=== PATIENT | male | born 1965 | race Caucasian/White ===

== ENCOUNTER 2016-04-20 11:37 | Inpatient (IN) | payer OTHER ==
[2016-04-20] MEDS ORDERED: ASPIRIN 81 MG CHEW PO STA (12:13)
[2016-04-20] MEDS ORDERED: NITROGLYCERIN OINT 1 INCH/GM PACKET TOPICAL STA (12:27)
--- NOTE | 2016-04-20 12:29 | ED ---
Chest Pain HPI - General Chief Complaint: Chest Pain Stated Complaint: Chest Pain Time Seen by Provider: 04/20/16 12:04 Source: patient, RN notes reviewed Mode of arrival: ambulatory Limitations: no limitations - History of Present Illness Initial Comments: Patient is a 50-year-old male presents to the emergency room for evaluation of chest pain. Patient states he has been having on and off chest pain for the past 2 months. Patient states the pain has been getting worse throughout the past few days. Patient states that he was in an argument with his when noticed the chest pain getting worse last night. Patient states he woke up this morning and chest pain has not subsided. Patient states the pain is on the left side of his chest and radiates to his shoulder. Patient denies nausea or vomiting. Patient is having 5 out of 10 constant pain. Patient states he is having slight shortness of breath. Patient states the pain is not worse with deep breaths. Patient states he has a mechanical aortic valve that was placed about 14 years ago. Patient states he's been on Coumadin for the past 14 years. Patient states his levels are checked every 1-2 weeks. Patient denies any history of MIs. Patient also has a history of diabetes type II. Patient states he takes insulin. Patient also has a history of high blood pressure. Patient denies any other significant past medical history. Patient denies fevers, chills. Patient states that he does feel lightheaded and dizzy. - Related Data Home Medications Medication Instructions Recorded Confirmed Enalapril [Vasotec] 5 mg PO DAILY 09/27/14 04/20/16 Insulin NPH Hum/Reg Insulin Hm See Protocol SQ AC-BID 09/27/14 04/20/16 [NovoLIN 70-30 100 UNIT/ML VIAL] Simvastatin [Zocor] 40 mg PO DAILY 09/27/14 04/20/16 Warfarin [Coumadin] 10 mg PO HS 09/27/14 04/20/16 Pioglitazone HCl [Pioglitazone HCl] 30 mg PO DAILY 04/20/16 04/20/16 Allergies Allergy/AdvReac Type Severity Reaction Status Date / Time No Known Allergies Allergy Verified 04/20/16 12:37 Review of Systems ROS Statement: Those systems with pertinent positive or pertinent negative responses have been documented in the HPI. ROS Other: All systems not noted in ROS Statement are negative. EKG Findings - EKG Comments: EKG Findings:: Normal sinus rhythm, ventricular rate 86 bpm, QRS duration 90 ms , QT/QTC 366/437 ms Past Medical History Past Medical History: Coronary Artery Disease (CAD), Diabetes Mellitus, Hyperlipidemia, Hypertension Additional Past Medical History / Comment(s): leaking aortic valve History of Any Multi-Drug Resistant Organisms: None Reported Additional Past Surgical History / Comment(s): aortic valve replacement Past Psychological History: No Psychological Hx Reported Smoking Status: Never smoker Past Alcohol Use History: Occasional Past Drug Use History: None Reported - Past Family History Father Family Medical History: Cancer Additional Family Medical History / Comment(s): Father had squamous cell carcinoma. He is . Mother Family Medical History: Cancer Additional Family Medical History / Comment(s): Mother of a cancer that was rare and started behind her knee. She wa 57 yrs old. General Exam - General Exam Comments Initial Comments: Sitting in exam room in no acute distress. Limitations: no limitations General appearance: alert, in no apparent distress Head exam: Present: atraumatic, normocephalic, normal inspection Eye exam: Present: normal appearance ENT exam: Present: normal exam Neck exam: Present: normal inspection Respiratory exam: Present: normal lung sounds bilaterally. Absent: respiratory distress Cardiovascular Exam: Present: regular rate, normal rhythm. Absent: normal heart sounds (mechanical aortic valve) GI/Abdominal exam: Present: soft, normal bowel sounds. Absent: distended, tenderness, guarding, rebound, rigid Extremities exam: Present: normal inspection Back exam: Present: normal inspection Neurological exam: Present: alert, oriented X3, CN II-XII intact, normal gait Psychiatric exam: Present: normal affect, normal mood Skin exam: Present: warm, dry, intact, normal color. Absent: rash Course Vital Signs 04/20/16 04/20/16 04/20/16 11:42 13:14 14:49 Temperature 98.2 F 99.3 F 97.5 F L Pulse Rate 102 H 90 84 Respiratory 16 20 20 Rate Blood Pressure 122/63 116/66 112/67 O2 Sat by Pulse 97 100 97 Oximetry 04/20/16 15:50 Temperature 98.0 F Pulse Rate 88 Respiratory 18 Rate Blood Pressure 112/66 O2 Sat by Pulse 96 Oximetry Chest Pain [facility] Patient is a 50-year-old male presents emergency room for evaluation of chest pain. Cardiac enzymes within normal limits. INR 8.2. Patient states his INR has ever been this high. Will hold Coumadin and have patient admitted for further evaluation of coagulopathy and unstable angina. Case discussed with Dr. Galindo. Dr. Galindo discussed case with Dr. Nelson who agreed to admit patient. Plan discussed with patient and his family. Disposition Clinical Impression: Unstable angina, Coagulopathy Disposition: ADMITTED IP TO THIS [facility] Condition: Stable Decision Date: 04/20/16
[2016-04-20 12:49] LABS: Basophils % (A) 0 %; CH 29.5; CHCM 33.5; Eosinophils # (A) 0.1 k/uL (0-0.7); Eosinophils % (A) 1 %; HCT 48.6 % (39.0-53.0); HDW 2.45; HGB 16.1 gm/dL (13.0-17.5); Luc # (Auto) 0.07; Luc % (Auto) 1; Lymphocytes # (A) 0.2 k/uL (1.0-4.8); Lymphocytes % (A) 3 %; MCH 29.3 pg (25.0-35.0); MCHC 33.2 g/dL (31.0-37.0); MCV 88.3 fL (80.0-100.0); Mean Platelet Volume 8.6; Monocytes # (A) 0.3 k/uL (0-1.0); Monocytes % (A) 4 %; Neutrophils # (A) 6.5 k/uL (1.3-7.7); Neutrophils % (A) 90 %; RBC 5.51 m/uL (4.30-5.90); RDW 13.1 % (11.5-15.5); WBC 7.2 k/uL (3.8-10.6); WBC (Perox) 7.06
[2016-04-20 12:54] LABS: Glucose,Whole Blood 254 mg/dL (75-99)
--- NOTE | 2016-04-20 13:02 | XR ---
EXAMINATION TYPE: XR chest 2V DATE OF EXAM: 04/20/2016 12:48 PM COMPARISON: 11/26/2011 TECHNIQUE: PA and lateral views submitted. HISTORY: Chest pain FINDINGS: The lungs are clear and there is no pneumothorax, pleural effusion, or focal pneumonia. Postsurgica l change is noted including valve replacement surgery. Surgical clips overlie the axilla on the right . Slight curvature of the spine noted with very minimal hypertrophic changes. IMPRESSION: 1. No acute process.
[2016-04-20 13:05] LABS: ALT 36 U/L (21-72); AST 26 U/L (17-59); Alkaline Phosphatase 73 U/L (38-126); Anion Gap 12 mmol/L; Blood Urea Nitrogen 19 mg/dL (9-20); Calcium 8.9 mg/dL (8.4-10.2); Carbon Dioxide 25 mmol/L (22-30); Chloride 102 mmol/L (98-107); Glucose 269 mg/dL (74-99); Magnesium 1.7 mg/dL (1.6-2.3); Non-African American GFR(MDRD) >60 (>60 ml/min/1.73 sqM); Potassium 4.4 mmol/L (3.5-5.1); Sodium 139 mmol/L (137-145); Total Bilirubin 1.2 mg/dL (0.2-1.3); Total Protein 6.8 g/dL (6.3-8.2)
[2016-04-20 13:15] LABS: Creatine Kinase 166 U/L (55-170)
[2016-04-20 13:18] LABS: Partial Thromboplastin Time 49.4 sec (22.0-30.0); Prothrombin Time 85.5 sec (9.0-12.0)
[2016-04-20 13:20] LABS: INR 8.2 (<1.1)
[2016-04-20 13:27] LABS: Creatine Kinase MB 0.8 ng/mL (0.0-2.4); Troponin I <0.012 ng/mL (0.000-0.034)
[2016-04-20] MEDS ORDERED: NALOXONE 0.4 MG/ML 1 ML VIAL IV PRN (14:10)
[2016-04-20] MEDS ORDERED: ONDANSETRON 4 MG/2 ML VIAL IVP PRN (14:10)
[2016-04-20] MEDS ORDERED: MORPHINE SULFATE 4 MG/ML SYRINGE IV PRN (14:10)
[2016-04-20] MEDS ORDERED: HYDROcodone/APAP 5-325MG 1 EACH TAB PO PRN (14:10)
[2016-04-20] MEDS ORDERED: ACETAMINOPHEN TAB 325 MG TAB PO PRN (14:10)
[2016-04-20] MEDS: SODIUM CHLORIDE 0.9% 1,000 ML IV SCH (14:50)
[2016-04-20] MEDS ORDERED: NITROGLYCERIN SL TABS 0.4 MG TAB SUBLINGUAL PRN (16:25)
[2016-04-20 18:54] LABS: Hemoglobin A1C 8.5 % (4.2-6.1)
[2016-04-20] MEDS: PANTOPRAZOLE 40 MG TABLET PO SCH (18:57)
[2016-04-20] MEDS: INSULIN LISPRO (humaLOG) 300 UNIT/3 ML VIAL SQ SCH ×2 (18:58→21:52)
[2016-04-20 19:07] LABS: Glucose,Whole Blood 214 mg/dL (75-99)
[2016-04-20 19:20] LABS: Creatine Kinase 126 U/L (55-170)
[2016-04-20 19:33] LABS: Creatine Kinase MB 0.5 ng/mL (0.0-2.4); Troponin I <0.012 ng/mL (0.000-0.034)
[2016-04-20 21:21] LABS: Glucose,Whole Blood 198 mg/dL (75-99)
--- NOTE | 2016-04-20 21:53 | HP ---
CHIEF COMPLAINT: Chest pain. HISTORY OF PRESENT ILLNESS: A 50-year-old gentleman with a past medical history of hypertension, hyperlipidemia, history of aortic regurgitation with a bicuspid aortic valve and aortic valve replacement being followed by Dr. Wu in the outpatient setting, complaining of chest pain. The patient was noted to have chest pain on the mid part of the chest and left side of the chest which was sharp in character. The pain was on and off for last in 2 months. According to him, the pain worsened today. The patient is on Coumadin for the last 14 years and the patient came to [place], was admitted for further evaluation. The patient also reports significant social stressors associated with an impending divorce. There is no history of any fever, rigors, chills. No history of headache. No history of hemoptysis, hematemesis, melena at this time. Coumadin coagulopathy was noted at the time of admission. The troponins are negative. PAST MEDICAL HISTORY: History of diabetes type 2, history of hypertension, hyperlipidemia, history of bicuspid aortic regurgitation, aortic valve replacement. Medications prior to admission include: 1. Coumadin 10 mg q.h.s. 2. Zocor 40 mg daily. 3. Actos 30 mg daily. 4. Insulin NPH 70/30. 5. Vasotec 5 mg daily. ALLERGIES: None. FAMILY HISTORY: History of cancer in the family, squamous cell carcinoma. SOCIAL HISTORY: The patient is on business. No history of smoking. Occasional alcohol intake. REVIEW OF SYSTEMS: ENT: No diminished hearing. No diminished vision. CARDIOVASCULAR: As mentioned earlier. RESPIRATORY: As mentioned earlier. GI: No nausea. : No dysuria. NERVOUS: No numbness or weakness. ALLERGY/IMMUNOLOGY: No asthma or hay fever. MUSCULOSKELETAL: As mentioned earlier. HEMATOLOGY/ONCOLOGY: No history of anemia. ENDOCRINE: Diabetes mellitus. CONSTITUTIONAL: As mentioned earlier. PSYCHIATRY: Negative. DERMATOLOGY: Negative. RHEUMATOLOGY: Negative. PHYSICAL EXAM: Patient is alert and oriented x3. Pulse is 84, blood pressure 112/66, respirations 20, temperature 97.4. Pulse ox 97% on 2L. HEENT: Conjunctivae normal. Oral mucosa moist. NECK: No jugular venous distension or carotid bruits. No lymph node enlargement. CARDIOVASCULAR: S1 normal. S2 is prosthetic murmur. RESPIRATORY: Breath sounds diminished in the bases. No rhonchi. No crackles. ABDOMEN: Soft, nontender. No mass palpable. LEGS: No edema. No swelling. NERVOUS SYSTEM: Higher functions as mentioned. Moves all 4 limbs. No focal motor or sensory deficits. LYMPHATIC: No lymph nodes palpable in neck or axillae. SKIN: No ulcer, rash or bleeding. LABS: CBC within normal limits. Otherwise, PT is 85.5 and INR is 8.2. Glucose 269, 254. ASSESSMENT: 1. Chest pain, possible angina. 2. Coumadin coagulopathy. 3. Prosthetic aortic valve and aortic valve replacement for aortic regurgitation as well as bicuspid aortic valve. 4. Diabetes mellitus type 2. 5. Hypertension. 6. Hyperlipidemia. 7. Coumadin monitoring. 8. Social stressors. 9. FULL CODE. RECOMMENDATIONS AND DICUSSION: In this 50-year-old gentleman who presented with multiple complex medical issues, we will monitor the patient closely. Continue the current medications and symptomatic treatment. To rule out myocardial infarction, continue angina protocol. Hold the Coumadin. Patient has mild Coumadin coagulopathy. Watch for any evidence of bleeding otherwise. Guarded prognosis because of multiple complex medical issues. Further recommendations to follow. A copy of dictation forwarded to Dr. Wu, who is the primary physician.
[2016-04-20] MEDS: ZOLPIDEM 5 MG TAB PO PRN (22:32)
[2016-04-21 01:19] LABS: Creatine Kinase 99 U/L (55-170)
[2016-04-21 01:32] LABS: Creatine Kinase MB 0.3 ng/mL (0.0-2.4); Troponin I <0.012 ng/mL (0.000-0.034)
[2016-04-21 06:30] LABS: Prothrombin Time 112.4 sec (9.0-12.0)
[2016-04-21 06:38] LABS: INR >10.0 (<1.1)
[2016-04-21 06:42] LABS: Anion Gap 7 mmol/L; Blood Urea Nitrogen 18 mg/dL (9-20); Calcium 8.6 mg/dL (8.4-10.2); Carbon Dioxide 27 mmol/L (22-30); Chloride 105 mmol/L (98-107); Cholesterol 120 mg/dL (<200); Glucose 224 mg/dL (74-99); HDL Cholesterol 49 mg/dL (40-60); Non-African American GFR(MDRD) >60 (>60 ml/min/1.73 sqM); Potassium 4.6 mmol/L (3.5-5.1); Sodium 139 mmol/L (137-145); Triglycerides 95 mg/dL (<150)
[2016-04-21 06:44] LABS: Glucose,Whole Blood 221 mg/dL (75-99)
[2016-04-21] MEDS: SODIUM CHLORIDE 0.9% 1,000 ML IV SCH ×2 (06:48→17:02)
[2016-04-21] MEDS: INSULIN LISPRO (humaLOG) 300 UNIT/3 ML VIAL SQ SCH ×4 (06:49→21:40)
[2016-04-21] MEDS: PANTOPRAZOLE 40 MG TABLET PO SCH (06:49)
[2016-04-21] MEDS ORDERED: PHYTONADIONE ORAL 5 MG/5 ML ORAL.SYRG PO STA (06:52)
[2016-04-21] MEDS: PIOGLITAZONE 30 MG TAB PO SCH (07:54)
[2016-04-21] MEDS: ATORVASTATIN 20 MG TAB PO SCH (07:54)
[2016-04-21] MEDS: LISINOPRIL 10 MG TAB PO SCH (07:54)
[2016-04-21] MEDS: ASPIRIN 325 MG TAB PO SCH (07:55)
[2016-04-21 09:25] LABS: Basophils % (A) 0 %; CH 28.9; CHCM 32.3; Eosinophils # (A) 0.1 k/uL (0-0.7); Eosinophils % (A) 2 %; HCT 44.3 % (39.0-53.0); HDW 2.33; Luc # (Auto) 0.11; Luc % (Auto) 3; Lymphocytes # (A) 0.7 k/uL (1.0-4.8); Lymphocytes % (A) 19 %; MCH 28.4 pg (25.0-35.0); MCHC 31.6 g/dL (31.0-37.0); MCV 89.7 fL (80.0-100.0); Mean Platelet Volume 8.5; Monocytes # (A) 0.4 k/uL (0-1.0); Monocytes % (A) 11 %; Neutrophils # (A) 2.3 k/uL (1.3-7.7); Neutrophils % (A) 64 %; RBC 4.93 m/uL (4.30-5.90); RDW 13.1 % (11.5-15.5); WBC 3.6 k/uL (3.8-10.6); WBC (Perox) 3.58
[2016-04-21 12:06] LABS: Glucose,Whole Blood 130 mg/dL (75-99)
--- NOTE | 2016-04-21 12:21 | P.PN ---
Objective - Vital Signs Vital signs: Vital Signs Temp 97.2 F L 04/21/16 11:58 Pulse 77 04/21/16 11:58 Resp 16 04/21/16 11:58 BP 133/81 04/21/16 11:58 Pulse Ox 96 04/21/16 11:58 Intake & Output 04/20/16 04/21/16 04/21/16 18:59 06:59 18:59 Intake Total 900 Balance 900 Weight 89.1 kg Intake: Intake, IV Titration 900 Amount Sodium Chloride 0.9% 1, 900 000 ml @ 75 mls/hr IV . [id number] [facility] Rx#:[id number] Other: # Voids 0 1 - Labs CBC & Chem 7: 04/21/16 05:27 04/21/16 05:27 Labs: Abnormal Lab Results - Last 24 Hours (Table) 04/20/16 04/20/16 04/21/16 Range/Units 18:56 21:20 05:27 WBC (3.8-10.6) k/uL Lymphocytes # (1.0-4.8) k/uL PT (9.0-12.0) sec INR (<1.1) Glucose 224 H (74-99) mg/dL POC Glucose (mg/dL) 214 H 198 H (75-99) mg/dL 04/21/16 04/21/16 04/21/16 Range/Units 05:27 05:27 06:43 WBC 3.6 L (3.8-10.6) k/uL Lymphocytes # 0.7 L (1.0-4.8) k/uL PT 112.4 H (9.0-12.0) sec INR >10.0 H* (<1.1) Glucose (74-99) mg/dL POC Glucose (mg/dL) 221 H (75-99) mg/dL 04/21/16 Range/Units 11:43 WBC (3.8-10.6) k/uL Lymphocytes # (1.0-4.8) k/uL PT (9.0-12.0) sec INR (<1.1) Glucose (74-99) mg/dL POC Glucose (mg/dL) 130 H (75-99) mg/dL
--- NOTE | 2016-04-21 12:21 | CONS ---
DATE OF CONSULTATION: Mr. Alonso is a 50-year-old gentleman who is seen for cardiac evaluation. This patient has status post aortic valve replacement about 14 years ago. Patient has been having intermittent chest pain for the last one month. The pain is sharp in the left anterior part of the chest subsequently related to stress. Pain is not related to exertion. Patient denies any shortness of breath with routine activities. He has been followed by Dr. Wu and he is suppose to take Coumadin 10 mg daily. Past medical history includes history of diabetes type 2, hypertension, hyperlipidemia, valve replacement. Patient's home medications include Coumadin, Zocor, Actos, insulin and Vasotec. SOCIAL HISTORY: Unremarkable. Physical examination at present reveals a 50-year-old gentleman who does not appear to be in any acute distress. Patient is afebrile. Heart rate is 75 per minute. Blood pressure is 120/66 mmHg/ Head/ENT examination is negative. Neck is supple. There is no increase in jugular venous pressure. Both the carotid pulses are felt. There is no bruit. Chest is symmetrical. HEART: The PMI is not felt. First and second heart sounds are normal. Prosthetic sounds are well heard. Lungs are clinically clear to auscultation and percussion. ABDOMEN: Soft. Liver and spleen are not enlarged. EXTREMITIES: Peripheral very pulsations are 2+. EKG shows normal sinus rhythm without any acute ischemic changes. The patient's INR was more than the 10 today. Electrolytes are normal. FINAL IMPRESSION: 1. This patient's chest pains are atypical pain. 2. Patient is status post aortic valve replacement. 3. Coagulopathy secondary to Coumadin. RECOMMENDATIONS: At present, symptomatic medical therapy is recommended. Patient received vitamin K this morning. After the patient's INR is stabilized, patient can be evaluated with a stress echo as an outpatient.
[2016-04-21 13:12] LABS: INR 7.5 (<1.1)
--- NOTE | 2016-04-21 13:41 | P.PN ---
Subjective date of service 04/21/2016 Progress note being dictated for Dr. Nelson. Interval history: This is a 50-year-old gentleman admitted with chest pain with history of aortic valve replacementand multiple other medical issues. Currently denies chest pain but states has left lateral chest pain nonradiating brought on by stress.denies shortness of breath. INR elevated,greater than 10 and received vitamin K this morning.no signs or symptoms of bleeding. evaluated by cardiology with recommendations noted. Echo pending.telemetry sinus rhythm. Objective - Vital Signs Vital signs: Vital Signs Temp 97.2 F L 04/21/16 11:58 Pulse 77 04/21/16 11:58 Resp 16 04/21/16 11:58 BP 133/81 04/21/16 11:58 Pulse Ox 96 04/21/16 11:58 Intake & Output 04/20/16 04/21/16 04/21/16 18:59 06:59 18:59 Intake Total 900 Balance 900 Weight 89.1 kg Intake: Intake, IV Titration 900 Amount Sodium Chloride 0.9% 1, 900 000 ml @ 75 mls/hr IV . [id number] COUNTS INCLUDE 234 BEDS AT [facility] Rx#:[id number] Other: # Voids 0 1 - Exam PHYSICAL EXAM: VITAL SIGNS: [as above] GENERAL: [sitting up in bed, no acute distress] HEENT: [Pupils equal conjunctiva normal.] NECK: [Supple, no JVD] RESPIRATORY EFFORT:[normal] LUNGS: [lungs clear, no crackles wheezes or rhonchi] CARDIOVASCULAR[regular S1 and S2, no edema] GI: [Abdomen soft, nontender, positive bowel sounds.no guarding] PSYCH: [Alert and oriented -3, mood and affect normal.] NEURO: no focal deficits, moves all 4 extremities, strength and sensation grossly intact - Labs CBC & Chem 7: 04/21/16 05:27 04/21/16 05:27 Labs: Abnormal Lab Results - Last 24 Hours (Table) 04/20/16 04/20/16 04/21/16 Range/Units 18:56 21:20 05:27 WBC (3.8-10.6) k/uL Lymphocytes # (1.0-4.8) k/uL PT (9.0-12.0) sec INR (<1.1) Glucose 224 H (74-99) mg/dL POC Glucose (mg/dL) 214 H 198 H (75-99) mg/dL 04/21/16 04/21/16 04/21/16 Range/Units 05:27 05:27 06:43 WBC 3.6 L (3.8-10.6) k/uL Lymphocytes # 0.7 L (1.0-4.8) k/uL PT 112.4 H (9.0-12.0) sec INR >10.0 H* (<1.1) Glucose (74-99) mg/dL POC Glucose (mg/dL) 221 H (75-99) mg/dL 04/21/16 04/21/16 Range/Units 11:43 12:19 WBC (3.8-10.6) k/uL Lymphocytes # (1.0-4.8) k/uL PT 77.0 H (9.0-12.0) sec INR 7.5 H* (<1.1) Glucose (74-99) mg/dL POC Glucose (mg/dL) 130 H (75-99) mg/dL Assessment and Plan Plan: 1. [chest pain, possible angina]. 2. [Coumadin coagulopathy]. 3. [prostatic aortic valve replacement secondary to aortic regurgitation 4. [diabetes mellitus type 2]. 5. [hypertension]. 6. [hyperlipidemia 7. [Coumadin monitoring, currently on hold]. 8. Social stressors plan: Continue on current medication regime ,monitoring and symptomatic treatment. As mentioned above received vitamin K with close monitoring of INR.continue close monitoring for signs or symptoms of bleeding. repeat labs ordered for a.m. Stress echo being discussed per cardiology once hypercoagulopathy controlled/stablized. Follow closely with cardiology.prognosis guarded given multiple complex medical issues. Further recommendations to follow. The impression and plan of care has been dictated as directed. : I performed a H&P examination of this patient and discussed the same with the dictator. I agree with the dictator's note. Any additional findings/opinions/ etc. will be noted.
[2016-04-21 16:44] LABS: Glucose,Whole Blood 229 mg/dL (75-99)
--- NOTE | 2016-04-21 19:17 | PN ---
DATE OF SERVICE: 04/21/2016 This 50 -year-old gentleman admitted with chest pain. Also had significant Coumadin coagulopathy. Vitamin K was given. INR is more than 10 at this time. Seen and evaluated the patient along with nurse practitioner. Please refer to the nurse practitioner notes and impression documented as a scribe for further information.
[2016-04-21] MEDS: ZOLPIDEM 5 MG TAB PO PRN (21:42)
[2016-04-21 21:44] LABS: Glucose,Whole Blood 127 mg/dL (75-99)
[2016-04-22] MEDS: SODIUM CHLORIDE 0.9% 1,000 ML IV SCH (06:00)
[2016-04-22 07:29] LABS: Glucose,Whole Blood 182 mg/dL (75-99)
[2016-04-22 07:39] VITALS: BP 130/70; PULSE 69; RESP 18; TEMP 97.7
[2016-04-22] MEDS: INSULIN LISPRO (humaLOG) 300 UNIT/3 ML VIAL SQ SCH ×2 (07:41→13:11)
[2016-04-22] MEDS: PANTOPRAZOLE 40 MG TABLET PO SCH (07:42)
[2016-04-22] MEDS: ASPIRIN 325 MG TAB PO SCH (07:42)
[2016-04-22] MEDS: ATORVASTATIN 20 MG TAB PO SCH (07:43)
[2016-04-22] MEDS: PIOGLITAZONE 30 MG TAB PO SCH (07:43)
[2016-04-22] MEDS: LISINOPRIL 10 MG TAB PO SCH (07:43)
[2016-04-22 08:51] LABS: Basophils % (A) 0 %; CH 29.1; CHCM 33.2; Eosinophils # (A) 0.1 k/uL (0-0.7); Eosinophils % (A) 3 %; HCT 42.7 % (39.0-53.0); HDW 2.47; HGB 13.8 gm/dL (13.0-17.5); Luc # (Auto) 0.13; Luc % (Auto) 4; Lymphocytes # (A) 0.7 k/uL (1.0-4.8); Lymphocytes % (A) 20 %; MCH 28.5 pg (25.0-35.0); MCHC 32.3 g/dL (31.0-37.0); Mean Platelet Volume 7.9; Monocytes # (A) 0.3 k/uL (0-1.0); Monocytes % (A) 8 %; Neutrophils # (A) 2.2 k/uL (1.3-7.7); Neutrophils % (A) 64 %; RBC 4.84 m/uL (4.30-5.90); WBC 3.5 k/uL (3.8-10.6); WBC (Perox) 3.73
[2016-04-22 08:56] LABS: INR 1.7 (<1.1); Prothrombin Time 16.3 sec (9.0-12.0)
--- NOTE | 2016-04-22 09:00 | ECHOF ---
Referral Reason:avr MEASUREMENTS -------- HEIGHT: 182.9 cm WEIGHT: 88.9 kg BP: 120/60 RVIDd: 2.7 cm (< 3.3) IVSd: 1.2 cm (0.6 - 1.1) LVIDd: 4.7 cm (3.9 - 5.3) LVPWd: 1.0 cm (0.6 - 1.1) IVSs: 1.4 cm LVIDs: 4.0 cm LVPWs: 1.3 cm Ao Diam: 3.3 cm (2.0 - 3.7) AV Cusp: 1.2 cm (1.5 - 2.6) LA Diam: 3.9 cm (2.7 - 3.8) MV EXCURSION: 21.866 mm (> 18.000) MV EF SLOPE: 100 mm/s (70 - 150) EPSS: 0.8 cm MV E Mayur: 0.81 m/s MV DecT: 195 ms MV A Mayur: 0.71 m/s MV E/A Ratio: 1.14 AV maxP.92 mmHg AV meanP.20 mmHg RAP: 5.00 mmHg RVSP: 16.97 mmHg FINDINGS -------- Sinus rhythm. This was a technically adequate study. There is mild concentric left ventricular hypertrophy. Overall left ventricular systolic function is normal with, an EF between 55 - 60 %. The right ventricle is normal in size. The right atrial size is normal. Peak/mean gradient across the Aortic Valve is 30.92mmHg / 17.20mmHg. Normally functioning mechanical prosthetic valve. Mild mitral annular calcification present. Mild mitral regurgitation is present. Mild tricuspid regurgitation present. There is no evidence of pulmonary hypertension. The right ventricular systolic pressure, as measured by Doppler, is 16.97mmHg. There is no pulmonic regurgitation present. The aortic root size is normal. There is no pericardial effusion. CONCLUSIONS -------- 1. There is mild concentric left ventricular hypertrophy. 2. Overall left ventricular systolic function is normal with, an EF between 55 - 60 %. 3. Peak/mean gradient across the Aortic Valve is 30.92mmHg / 17.20mmHg. 4. Normally functioning mechanical prosthetic valve. 5. Mild mitral annular calcification present. 6. Mild mitral regurgitation is present. 7. Mild tricuspid regurgitation present. 8. There is no evidence of pulmonary hypertension. 9. The right ventricular systolic pressure, as measured by Doppler, is 16.97mmHg. CAMP COOK: Maria De Jesus Mckinley RDCS
[2016-04-22 09:15] LABS: Anion Gap 6 mmol/L; Blood Urea Nitrogen 12 mg/dL (9-20); Calcium 8.3 mg/dL (8.4-10.2); Carbon Dioxide 26 mmol/L (22-30); Chloride 106 mmol/L (98-107); Glucose 208 mg/dL (74-99); Non-African American GFR(MDRD) >60 (>60 ml/min/1.73 sqM); Sodium 138 mmol/L (137-145)
[2016-04-22 12:22] LABS: Glucose,Whole Blood 194 mg/dL (75-99)
[2016-04-22] MEDS ORDERED: WARFARIN 10 MG TAB PO ONE (18:00)
--- NOTE | 2016-04-23 10:54 | DS ---
DATE OF ADMISSION: 04/20/2016 DATE OF DISCHARGE: 04/22/2016 FINAL DIAGNOSES: 1. Chest pain, possibly musculoskeletal, improved. 2. Coumadin coagulopathy, improved. 3. Prosthetic mechanical aortic valve done for bicuspid aortic value and as well as aortic regurgitation. 4. Diabetes mellitus type 2. 5. Hypertension. 6. Hyperlipidemia. 7. Coumadin monitoring. 8. Social stressors. DISCHARGE DISPOSITION: The patient will be discharged in a stable condition with guarded prognosis. HISTORY OF PRESENT ILLNESS: This 50-year-old gentleman with a past medical history of multiple medical problems admitted with chest pain. The patient also had Coumadin coagulopathy. Cardiology saw the patient and recommend outpatient follow-up. On examination, vitals are stable. CARDIOVASCULAR SYSTEM: S1 normal. S2 is prosthetic. NERVOUS SYSTEM: No focal deficits. Discharge diet is cardiac, 1800 calorie ADA diet. Will follow up with Dr. Wu with CBC, BMP, PT, INR and follow with cardiology as recommended. MEDICATIONS: 1. Tylenol 650 q.6 p.r.n. 2. Insulin NPH as before b.i.d. 3. Zestril 10 mg p.o. daily. 4. Actos 30 mg p.o. daily. 5. Zocor 40 mg daily. 6. Coumadin 8 mg p.o. daily for now. Dose to be adjusted in the outpatient setting. Once again, the patient will be discharged in stable condition with guarded prognosis.
== END 2016-04-22 14:23 | disposition home or self-care (01) | DRG 313 ==
LOC: EC 11:37 → 6SEL 14:03 → 4MS4W 04-21 16:52
PROVIDERS: ADMIT Hospitalist; ATTEND Hospitalist
DX: R07.89 Other chest pain (principal); I25.110 Atherosclerotic heart disease of native coronary artery with unstable angina pectoris; I10 Essential (primary) hypertension; E11.9 Type 2 diabetes mellitus without complications; Z95.2 Presence of prosthetic heart valve; E78.5 Hyperlipidemia, unspecified; R79.1 Abnormal coagulation profile; T45.515A Adverse effect of anticoagulants, initial encounter; Z79.4 Long term (current) use of insulin; Z79.01 Long term (current) use of anticoagulants; Z79.899 Other long term (current) drug therapy
CPT/HCPCS: 36415; 71020; 80048; 80053; 80061; 82550; 82553; 83036; 83735; 84484; 85025; 85379; 85610; 85730; 87502; 93005; 93306; 94760; 96360; 96361; 99285

== ENCOUNTER → 2016-08-02 | Outpatient (CLI) | payer OTHER ==
--- NOTE | 2016-08-04 07:55 | XR ---
Sternum HISTORY: Trauma and pain 2 views of the sternum Comparison to chest x-ray 08/02/2016 Bone mineralization is maintained. Patient is post median sternotomy, sternal wires are intact. Cardi ac valve replacement has been performed. Surgical clips present in the right axilla. IMPRESSION: No depressed sternal fracture is evident. Follow-up as indicated.
--- NOTE | 2016-08-04 07:57 | XR ---
Bilateral RIBS with PA chest x-ray HISTORY: Trauma and pain 4 views of each ribs are submitted, frontal view of the chest. No displaced rib fracture is evident. There is no pneumothorax or pleural effusion. Postop changes ar e noted status post median sternotomy. Surgical clips are present over the right shoulder. Cardiomedi astinal silhouette, pulmonary vascularity and lorrie are within normal limits. IMPRESSION: No displaced fracture, bone scan could be performed for increased sensitivity as indicate d if occult fracture is suspected.
== END | disposition home or self-care (01) ==
LOC: RADXRYALE 16:49
PROVIDERS: ATTEND Family Medicine
DX: S29.9XXA Unspecified injury of thorax, initial encounter (principal)
CPT/HCPCS: 71111; 71120

== ENCOUNTER → 2017-09-12 | Outpatient (CLI) | payer OTHER ==
[2017-09-12 07:06] LABS: Blood Urea Nitrogen 13 mg/dL (9-20)
--- NOTE | 2017-09-12 09:33 | CT ---
EXAMINATION TYPE: CT angio chest DATE OF EXAM: 09/12/2017 COMPARISON: 11/30/2011 HISTORY: 52-year-old male follow-up Ascending aortic aneurysm TECHNIQUE: Contiguous axial scanning of the chest performed without and with IV Contrast, patient inj ected with 100 ml mL of Isovue 370. Coronal/sagittal MIP reconstructions performed. Reconstructions g enerated on a dedicated independent workstation. CT DLP: 618.70 mGycm Automated exposure control for dose reduction was used. FINDINGS: Median sternotomy wires are present with prosthetic aortic valve. There is also prior surgical repair of the ascending aorta, possible interposition graft extending to the proximal arch. The aortic root measures 3.2 cm, stable. Ascending aorta measures 3.4 cm, stable. There is conventional arterial vessel branching anatomy. Upper descending thoracic aorta is mildly aneurysmal at 3.3 cm, stable to minimally increased from 3. 2 cm, previously. The remainder of the thoracic aorta is normal caliber. Heart normal size without pericardial effusion. Mild bilateral gynecomastia. No thoracic lymphadenopathy by CT size criteria. Mild dependent atelectasis in the lungs no consolidation or pleural effusion. Small hiatal hernia. Visualized upper abdomen shows no gross abnormality. Bones: No osseous destructive process. IMPRESSION: 1. STABLE POST SURGICAL CHANGES OF PRIOR ASCENDING AORTIC REPAIR. NO EVIDENT COMPLICATION. 2. THE UPPER DESCENDING THORACIC AORTA IS MILDLY ANEURYSMAL AT 3.3 CM, RELATIVELY STABLE FROM 2012 WH ERE IT MEASURED 3.2 CM. 3. SMALL HIATAL HERNIA.
== END ==
LOC: RADCTMAIN 06:34
PROVIDERS: ATTEND Internal Medicine Interventional Cardiology
DX: I71.2 Thoracic aortic aneurysm, without rupture (principal); K44.9 Diaphragmatic hernia without obstruction or gangrene
CPT/HCPCS: 82565; 84520; 71275; 36415; Q9967

== ENCOUNTER 2018-04-04 06:48 | Inpatient (IN) | payer OTHER ==
[2018-04-04] MEDS ORDERED: SODIUM CHLORIDE 0.9% 500 ML 500 ML IV ONE (07:13)
[2018-04-04] MEDS ORDERED: ONDANSETRON 4 MG/2 ML VIAL IVP STA (07:14)
[2018-04-04 07:18] LABS: Glucose,Whole Blood 107 mg/dL (75-99)
--- NOTE | 2018-04-04 07:18 | ED ---
General Adult HPI - General Chief complaint: Altered Mental Status Stated complaint: hypoglycemia Time Seen by Provider: 04/04/18 06:55 Source: patient, EMS, RN notes reviewed Mode of arrival: EMS Limitations: altered mental status - History of Present Illness Initial comments: This is a 52-year-old male who presents to the emergency department because he was unresponsive and found by friends at 5:30. He was last seen last night after he ate dinner. Patient did not meet with friends as he normally does so they went and checked on him and he was found unresponsive when EMS at the scene his sugar was 44. He was given an amp of D50 and his sugar came up to 190 but he was still very slow to respond and could not figure out where he was. There is no other family member or caregiver with the patient so I'm unable to give any further history patient is unable to stand to give me any further history. Patient did vomit once when he arrived to the emergency department but he is still unable to tell us anything and follow simple commands. - Related Data Home Medications Medication Instructions Recorded Confirmed Insulin NPH Hum/Reg Insulin Hm See Protocol SQ AC-BID 09/27/14 04/04/18 [NovoLIN 70-30 100 UNIT/ML VIAL] Simvastatin [Zocor] 40 mg PO DAILY 09/27/14 04/04/18 Cholecalciferol [Vitamin D3] 3,000 unit PO DAILY 04/04/18 04/04/18 Cinnamon Bark [Cinnamon] 1,000 mg PO DAILY 04/04/18 04/04/18 Empagliflozin [Jardiance] 25 mg PO DAILY 04/04/18 04/04/18 Enalapril Maleate [Vasotec] 5 mg PO DAILY 04/04/18 04/04/18 Sildenafil [Revatio] 60 mg PO DAILY PRN 04/04/18 04/04/18 Warfarin [Coumadin] 10 mg PO DAILY 04/04/18 04/04/18 metFORMIN HCL [Glucophage] 100 mg PO BID 04/04/18 04/04/18 sitaGLIPtin [Januvia] 100 mg PO DAILY 04/04/18 04/04/18 Allergies Allergy/AdvReac Type Severity Reaction Status Date / Time No Known Allergies Allergy Verified 04/04/18 08:13 Review of Systems ROS Statement: Those systems with pertinent positive or pertinent negative responses have been documented in the HPI. ROS Other: All systems not noted in ROS Statement are negative. Past Medical History Past Medical History: Coronary Artery Disease (CAD), Diabetes Mellitus, Hyperlipidemia, Hypertension Additional Past Medical History / Comment(s): leaking aortic valve History of Any Multi-Drug Resistant Organisms: None Reported Additional Past Surgical History / Comment(s): aortic valve replacement Past Anesthesia/Blood Transfusion Reactions: No Reported Reaction Past Psychological History: No Psychological Hx Reported Smoking Status: Never smoker Past Alcohol Use History: Occasional Past Drug Use History: None Reported - Past Family History Father Family Medical History: Cancer Additional Family Medical History / Comment(s): Father had squamous cell carcinoma. He is . Mother Family Medical History: Cancer Additional Family Medical History / Comment(s): Mother of a cancer that was rare and started behind her knee. She wa 57 yrs old. General Exam - General Exam Comments Initial Comments: GENERAL: Patient is well-developed and well-nourished. Patient is nontoxic and well- hydrated and is in mild distress. ENT: Neck is soft and supple. No significant lymphadenopathy is noted. Oropharynx is clear. Moist mucous membranes. Neck has full range of motion without eliciting any pain. EYES: The sclera were anicteric and conjunctiva were pink and moist. Extraocular movements were intact and pupils were equal round and reactive to light. Eyelids were unremarkable. PULMONARY: Unlabored respirations. Good breath sounds bilaterally. No audible rales rhonchi or wheezing was noted. CARDIOVASCULAR: Patient has a scar in the middle of his chest I could hear a click of valve I have no other history on this at this time ABDOMEN: Soft and nontender with normal bowel sounds. SKIN: Skin is clear with no lesions or rashes and otherwise unremarkable. NEUROLOGIC: Patient is arousable and is able to open his eyes on command but does not answer any questions it does appear that he is able to move all 4 extremities. I noticed no gross neurologic deficits such as any facial droop. MUSCULOSKELETAL: Normal extremities with adequate strength and full range of motion. No lower extremity swelling or edema. LYMPHATICS: No significant lymphadenopathy is noted PSYCHIATRIC: To evaluate Limitations: altered mental status Course Vital Signs 04/04/18 04/04/18 04/04/18 06:55 07:32 09:27 Temperature 97.6 F 98.2 F Pulse Rate 67 66 71 Respiratory 16 16 16 Rate Blood Pressure 186/96 162/85 163/83 O2 Sat by Pulse 99 98 100 Oximetry Medical Decision Making - Medical Decision Making EKG shows sinus rhythm with occasional PVC at 60 bpm W[place] interval 286 QRS is under QT intervals 412 QTC is 438. Patient's EKG shows no acute ST segment elevation or depression. When I compared this EKG to an old EKG I don't notice any significant changes. Family arrived later and told me that he had a aortic valve replacement 15 years ago. Patient also is a diabetic. They state that he has no history of high blood pressure high cholesterol. Family states his sugars been running high for quite a while and is causing quite a bit has some lately. The family states his been under a lot of stress and is going through a divorce and is in the final states that. Family also states for the last week complaining of a lot of heartburn and drinking a lot of Mylanta. After about 4 hours of being in the emergency department the patient became much more alert and oriented but not quite to his baseline but he was able to recognize family and talked to them. Patient is now being fed. Patient is getting Tylenol for a headache. - Lab Data Result diagrams: 04/04/18 07:20 04/04/18 07:20 Lab Results 04/04/18 04/04/18 04/04/18 Range/Units 07:05 07:20 07:20 WBC 6.0 (3.8-10.6) k/uL RBC 5.31 (4.30-5.90) m/uL Hgb 15.2 (13.0-17.5) gm/dL Hct 45.8 (39.0-53.0) % MCV 86.2 (80.0-100.0) fL MCH 28.6 (25.0-35.0) pg MCHC 33.1 (31.0-37.0) g/dL RDW 13.4 (11.5-15.5) % Plt Count 227 (150-450) k/uL Neutrophils % 88 % Lymphocytes % 6 % Monocytes % 4 % Eosinophils % 1 % Basophils % 0 % Neutrophils # 5.3 (1.3-7.7) k/uL Lymphocytes # 0.4 L (1.0-4.8) k/uL Monocytes # 0.2 (0-1.0) k/uL Eosinophils # 0.0 (0-0.7) k/uL Basophils # 0.0 (0-0.2) k/uL PT (9.0-12.0) sec INR (<1.2) APTT (22.0-30.0) sec Sodium 141 (137-145) mmol/L Potassium 3.8 (3.5-5.1) mmol/L Chloride 105 (98-107) mmol/L Carbon Dioxide 30 (22-30) mmol/L Anion Gap 6 mmol/L BUN 17 (9-20) mg/dL Creatinine 0.81 (0.66-1.25) mg/dL Est GFR (CKD-EPI)AfAm >90 (>60 ml/min/1.73 sqM) Est GFR (CKD-EPI)NonAf >90 (>60 ml/min/1.73 sqM) Glucose 114 H (74-99) mg/dL POC Glucose (mg/dL) 107 H (75-99) mg/dL POC Glu [employer] ID Radha Dwons Calcium 8.7 (8.4-10.2) mg/dL Total Bilirubin 0.5 (0.2-1.3) mg/dL AST 24 (17-59) U/L ALT 37 (21-72) U/L Alkaline Phosphatase 66 (38-126) U/L Troponin I (0.000-0.034) ng/mL Total Protein 6.8 (6.3-8.2) g/dL Albumin 4.2 (3.5-5.0) g/dL 04/04/18 04/04/18 04/04/18 Range/Units 07:20 07:20 08:07 WBC (3.8-10.6) k/uL RBC (4.30-5.90) m/uL Hgb (13.0-17.5) gm/dL Hct (39.0-53.0) % MCV (80.0-100.0) fL MCH (25.0-35.0) pg MCHC (31.0-37.0) g/dL RDW (11.5-15.5) % Plt Count (150-450) k/uL Neutrophils % % Lymphocytes % % Monocytes % % Eosinophils % % Basophils % % Neutrophils # (1.3-7.7) k/uL Lymphocytes # (1.0-4.8) k/uL Monocytes # (0-1.0) k/uL Eosinophils # (0-0.7) k/uL Basophils # (0-0.2) k/uL PT 29.9 H (9.0-12.0) sec INR 3.1 H (<1.2) APTT 39.9 H (22.0-30.0) sec Sodium (137-145) mmol/L Potassium (3.5-5.1) mmol/L Chloride (98-107) mmol/L Carbon Dioxide (22-30) mmol/L Anion Gap mmol/L BUN (9-20) mg/dL Creatinine (0.66-1.25) mg/dL Est GFR (CKD-EPI)AfAm (>60 ml/min/1.73 sqM) Est GFR (CKD-EPI)NonAf (>60 ml/min/1.73 sqM) Glucose (74-99) mg/dL POC Glucose (mg/dL) 109 H (75-99) mg/dL POC Glu [employer] ID Mukul Hagen Calcium (8.4-10.2) mg/dL Total Bilirubin (0.2-1.3) mg/dL AST (17-59) U/L ALT (21-72) U/L Alkaline Phosphatase (38-126) U/L Troponin I <0.012 (0.000-0.034) ng/mL Total Protein (6.3-8.2) g/dL Albumin (3.5-5.0) g/dL 04/04/18 Range/Units 09:28 WBC (3.8-10.6) k/uL RBC (4.30-5.90) m/uL Hgb (13.0-17.5) gm/dL Hct (39.0-53.0) % MCV (80.0-100.0) fL MCH (25.0-35.0) pg MCHC (31.0-37.0) g/dL RDW (11.5-15.5) % Plt Count (150-450) k/uL Neutrophils % % Lymphocytes % % Monocytes % % Eosinophils % % Basophils % % Neutrophils # (1.3-7.7) k/uL Lymphocytes # (1.0-4.8) k/uL Monocytes # (0-1.0) k/uL Eosinophils # (0-0.7) k/uL Basophils # (0-0.2) k/uL PT (9.0-12.0) sec INR (<1.2) APTT (22.0-30.0) sec Sodium (137-145) mmol/L Potassium (3.5-5.1) mmol/L Chloride (98-107) mmol/L Carbon Dioxide (22-30) mmol/L Anion Gap mmol/L BUN (9-20) mg/dL Creatinine (0.66-1.25) mg/dL Est GFR (CKD-EPI)AfAm (>60 ml/min/1.73 sqM) Est GFR (CKD-EPI)NonAf (>60 ml/min/1.73 sqM) Glucose (74-99) mg/dL POC Glucose (mg/dL) 86 (75-99) mg/dL POC Glu [employer] ID CrystalitIdalia currie Calcium (8.4-10.2) mg/dL Total Bilirubin (0.2-1.3) mg/dL AST (17-59) U/L ALT (21-72) U/L Alkaline Phosphatase (38-126) U/L Troponin I (0.000-0.034) ng/mL Total Protein (6.3-8.2) g/dL Albumin (3.5-5.0) g/dL Disposition Clinical Impression: Hypoglycemia, Altered mental status Disposition: ADMITTED IP TO THIS [facility] Referrals: None,Stated [REFERRING] - 1-2 days Time of Disposition: 10:54
[2018-04-04 07:34] LABS: Basophils % (A) 0 %; Eosinophils % (A) 1 %; HCT 45.8 % (39.0-53.0); HGB 15.2 gm/dL (13.0-17.5); Lymphocytes # (A) 0.4 k/uL (1.0-4.8); Lymphocytes % (A) 6 %; MCH 28.6 pg (25.0-35.0); MCHC 33.1 g/dL (31.0-37.0); MCV 86.2 fL (80.0-100.0); Mean Platelet Volume 7.3; Monocytes # (A) 0.2 k/uL (0-1.0); Monocytes % (A) 4 %; Neutrophils # (A) 5.3 k/uL (1.3-7.7); Neutrophils % (A) 88 %; Platelet Count 227 k/uL (150-450); RBC 5.31 m/uL (4.30-5.90); RDW 13.4 % (11.5-15.5)
[2018-04-04 07:47] LABS: ALT 37 U/L (21-72); AST 24 U/L (17-59); Albumin 4.2 g/dL (3.5-5.0); Alkaline Phosphatase 66 U/L (38-126); Anion Gap 6 mmol/L; Blood Urea Nitrogen 17 mg/dL (9-20); Calcium 8.7 mg/dL (8.4-10.2); Carbon Dioxide 30 mmol/L (22-30); Chloride 105 mmol/L (98-107); Glucose 114 mg/dL (74-99); Potassium 3.8 mmol/L (3.5-5.1); Sodium 141 mmol/L (137-145); Total Bilirubin 0.5 mg/dL (0.2-1.3); Total Protein 6.8 g/dL (6.3-8.2)
[2018-04-04 07:48] LABS: INR 3.1 (<1.2); Partial Thromboplastin Time 39.9 sec (22.0-30.0); Prothrombin Time 29.9 sec (9.0-12.0)
[2018-04-04 08:20] LABS: Glucose,Whole Blood 109 mg/dL (75-99)
[2018-04-04 09:30] LABS: Glucose,Whole Blood 86 mg/dL (75-99)
--- NOTE | 2018-04-04 10:01 | CT ---
EXAMINATION TYPE: CT brain wo con DATE OF EXAM: 04/04/2018 COMPARISON: INDICATION: Altered mental status, hypoglycemia DLP: 1201.4 mGycm, Automated exposure control for dose reduction was used. CONTRAST: None CT of the brain is performed utilizing 3 mm thick sections through the posterior fossa and 3 mm thick sections through the remaining calvarium. Study is performed within 24 hours of arrival to the hosp ital. No abnormal hyperdensity is present to suggest an acute intracranial hemorrhage. No mass lesion is evident. No acute infarcts are evident. Small old lacunar infarct may be in the left lagunas radiata adjacent t o the left lateral ventricle and within the anterior medial right basal ganglion or caudate head. A t iny lacunar infarct may be within the left caudate head. Some mild periventricular white matter hypod ensity is present, likely on the basis of chronic white matter ischemic changes. Ventricles and sulci are appropriate for the patient age. Mucosal thickening is through the maxillary and ethmoid air cells. Mastoid air cells are clear. Left septal deviation is present. IMPRESSIONS: 1. Old lacunar infarct discussed above. 2. Some mild periventricular white matter ischemic type changes likely present. 3. No acute intracranial process.
--- NOTE | 2018-04-04 10:34 | XR ---
EXAMINATION TYPE: XR chest 1V portable DATE OF EXAM: 04/04/2018 COMPARISON: Prior chest x-ray 04/20/2016 HISTORY: Altered mental status TECHNIQUE: Single frontal view of the chest is obtained. FINDINGS: Patient is post median sternotomy and aortic valve replacement. There is some rotation. Th ere are cardiac leads. Surgical clips present right upper chest. No pneumothorax or pleural effusion. Heart size may be accentuated by technique. No evident airspace disease, pulmonary vascularity and h vannesa are stable. IMPRESSION: No acute process.
[2018-04-04] MEDS ORDERED: ACETAMINOPHEN TAB 500 MG TAB PO STA (10:51)
[2018-04-04 10:53] LABS: Glucose,Whole Blood 71 mg/dL (75-99)
[2018-04-04] MEDS ORDERED: SODIUM CHLORIDE 0.9% 1,000 ML IV ONE (10:54)
[2018-04-04 13:06] LABS: Glucose,Whole Blood 153 mg/dL (75-99)
[2018-04-04 13:28] LABS: Appearance,Urine Clear (Clear); Bilirubin,Urine Negative (Negative); Blood,Urine Negative (Negative); Color,Urine Yellow; Glucose,Urine (UA) Negative (Negative); Ketones,Urine Negative (Negative); Leukocyte Esterase,Urine Negative (Negative); Nitrite,Urine Negative (Negative); PH, Urine 7.5 (5.0-8.0); Protein,Urine Negative (Negative); Specific Gravity,Urine 1.013 (1.001-1.035); Urobilinogen,Urine <2.0 mg/dL (<2.0)
[2018-04-04 13:37] VITALS: BMI 31.4
[2018-04-04 13:42] LABS: Amphetamine Screen,Urine Not Detected (NotDetected); Barbiturate Screen,Urine Not Detected (NotDetected); Benzodiazepines Screen,Urine Not Detected (NotDetected); Cocaine Screen,Urine Not Detected (NotDetected); Methadone Screen, Urine Not Detected (NotDetected); Opiate Screen,Urine Not Detected (NotDetected); Oxycodone Screen, Urine Not Detected (NotDetected); Phencyclidine Screen,Urine Not Detected (NotDetected); Tricyclic Antidepressant,Urine Not Detected (NotDetected); Urn Cannabinoid Scrn Not Detected (NotDetected)
[2018-04-04] MEDS ORDERED: KETOROLAC 30 MG/ML 1 ML VIAL IVP STA (14:24)
--- NOTE | 2018-04-04 14:44 | P.HPIM ---
History of Present Illness 52-year-old male came in with decreased responsiveness which is believed to be secondary to low blood sugars and his blood sugars were around 43 when he allowed to ER and patient improved now patient is alert oriented times is complaining of retro-orbital pain secondary to sinusitis mostly probably from ALLERGIES. Patient is comparing of massive congestion with clear discharge and patient denied any sputum production does have cough. Patient on multiple medications although not documented on emr, patient is on and vomiting, Januvia which she is not taking now, Jardiance, 70/30 insulin 10 units twice a day and patient did take 70/30 last night as his blood sugars are elevated. Patient did have an unintentional weight loss from depression, which has been going on for about a year. Patient denied any fever chills no other signs or symptoms of sepsis patient does have mechanical aortic valve and his target INR is 2.5- 3.5 and his INR is presently 3. Patient was comparing of epigastric abdominal discomfort burning sensation, check EKG showed normal sinus rhythm troponin is negative. Review of Systems REVIEW OF SYSTEMS: CONSTITUTIONAL: No fever, no malaise, no fatigue. HEENT: No recent visual problems or hearing problems. Denied any sore throat. CARDIOVASCULAR: No chest pain, orthopnea, PND, no palpitations, no syncope. PULMONARY: No shortness of breath, no cough, no hemoptysis. GASTROINTESTINAL: No diarrhea, no nausea, no vomiting, no abdominal pain. NEUROLOGICAL: As mentioned in HPI HEMATOLOGICAL: Denies any bleeding or petechiae. GENITOURINARY: Denies any burning micturition, frequency, or urgency. MUSCULOSKELETAL/RHEUMATOLOGICAL: Denies any joint pain, swelling, or any muscle pain. ENDOCRINE: Denies any polyuria or polydipsia. The rest of the 14-point review of systems is negative. Past Medical History Past Medical History: Coronary Artery Disease (CAD), Diabetes Mellitus, Eye Disorder, GERD/Reflux, Hyperlipidemia, Hypertension Additional Past Medical History / Comment(s): Recent cold, leaking aortic valve and had prosthetic aortic valve replacement, IDDM type II, bilateral eye injections for leaky vessels behind eye, epistaxix with coumadin use, syncope r/ t diabetes. History of Any Multi-Drug Resistant Organisms: None Reported Past Surgical History: Cardiac Valve Replacement Additional Past Surgical History / Comment(s): aortic valve replacement done at [facility]. Past Anesthesia/Blood Transfusion Reactions: No Reported Reaction Smoking Status: Never smoker - Past Family History Father Family Medical History: Cancer Additional Family Medical History / Comment(s): Father at the age of 68yrs fromsquamous cell carcinoma. Mother Family Medical History: Cancer Additional Family Medical History / Comment(s): Mother from Ewings sarcoma at the age of 57yrs. Medications and Allergies Home Medications Medication Instructions Recorded Confirmed Type Insulin NPH Hum/Reg Insulin Hm See Protocol SQ AC-BID 09/27/14 04/04/18 History [NovoLIN 70-30 100 UNIT/ML VIAL] Simvastatin [Zocor] 40 mg PO DAILY 09/27/14 04/04/18 History Cholecalciferol [Vitamin D3] 3,000 unit PO DAILY 04/04/18 04/04/18 History Cinnamon Bark [Cinnamon] 1,000 mg PO DAILY 04/04/18 04/04/18 History Empagliflozin [Jardiance] 25 mg PO DAILY 04/04/18 04/04/18 History Enalapril Maleate [Vasotec] 5 mg PO DAILY 04/04/18 04/04/18 History Sildenafil [Revatio] 60 mg PO DAILY PRN 04/04/18 04/04/18 History Warfarin [Coumadin] 10 mg PO DAILY 04/04/18 04/04/18 History metFORMIN HCL [Glucophage] 100 mg PO BID 04/04/18 04/04/18 History sitaGLIPtin [Januvia] 100 mg PO DAILY 04/04/18 04/04/18 History Allergies Allergy/AdvReac Type Severity Reaction Status Date / Time No Known Allergies Allergy Verified 04/04/18 08:13 Physical Exam Vitals: Vital Signs Temp Pulse Resp BP Pulse Ox 04/04/18 13:00 66 16 142/83 95 04/04/18 09:27 98.2 F 71 16 163/83 100 04/04/18 07:32 66 16 162/85 98 04/04/18 06:55 97.6 F 67 16 186/96 99 Intake and Output 04/03/18 04/04/18 04/04/18 22:59 06:59 14:59 Other: Weight 88.451 kg PHYSICAL EXAMINATION: GENERAL: The patient is alert and oriented x3, not in any acute distress. Well developed, well nourished. HEENT: Pupils are round and equally reacting to light. EOMI. No scleral icterus. No conjunctival pallor. Normocephalic, atraumatic. No pharyngeal erythema. No thyromegaly. CARDIOVASCULAR: S1 and S2 present. No murmurs, rubs, or gallops. PULMONARY: Chest is clear to auscultation, no wheezing or crackles. ABDOMEN: Soft, nontender, nondistended, normoactive bowel sounds. No palpable organomegaly. MUSCULOSKELETAL: No joint swelling or deformity. EXTREMITIES: No cyanosis, clubbing, or pedal edema. NEUROLOGICAL: Gross neurological examination did not reveal any focal deficits. SKIN: No rashes. Results CBC & Chem 7: 04/04/18 07:20 04/04/18 07:20 Labs: Abnormal Lab Results - Last 24 Hours (Table) 04/04/18 04/04/18 04/04/18 Range/Units 07:05 07:20 07:20 Lymphocytes # 0.4 L (1.0-4.8) k/uL PT (9.0-12.0) sec INR (<1.2) APTT (22.0-30.0) sec Glucose 114 H (74-99) mg/dL POC Glucose (mg/dL) 107 H (75-99) mg/dL 04/04/18 04/04/18 04/04/18 Range/Units 07:20 08:07 10:49 Lymphocytes # (1.0-4.8) k/uL PT 29.9 H (9.0-12.0) sec INR 3.1 H (<1.2) APTT 39.9 H (22.0-30.0) sec Glucose (74-99) mg/dL POC Glucose (mg/dL) 109 H 71 L (75-99) mg/dL 04/04/18 Range/Units 13:04 Lymphocytes # (1.0-4.8) k/uL PT (9.0-12.0) sec INR (<1.2) APTT (22.0-30.0) sec Glucose (74-99) mg/dL POC Glucose (mg/dL) 153 H (75-99) mg/dL Thrombosis Risk Factor Assmnt - Choose All That Apply Any of the Below Risk Factors Present?: Yes Each Factor Represents 1 point: Age 41-60 years, Obesity (BMI >25) Other Risk Factors: No Other congenital or acquired thrombophilia - If yes, enter type in comment: No Thrombosis Risk Factor Assessment Total Risk Factor Score: 2 Thrombosis Risk Factor Assessment Level: Low Risk Assessment and Plan Plan: -Hypoglycemia leading to mildly decreased responsiveness patient's insulin will be discontinued will monitor his blood sugars today without any hypoglycemic agents and will decide on his home regimen depending on his blood sugars during this hospitalization. -Retro-orbital headache: CAT scan of the head did not show any significant acute abnormality, headache is probably secondary to sinusitis which is mostly allogenic, patient was started on Claritin. -Gastritis: Patient will be started on Protonix patient may need 14 days of Prilosec. -Type 2 diabetes mellitus: Will obtain hemoglobin A1c patient appears to have had uncontrolled blood sugars in the past since he last significant amount of weight patient blood sugars are better controlled now. -Hyperlipidemia -Hypertension -History of fatty regurgitation with mechanical aortic valve patient's INR is therapy continue with same dose of Coumadin now
[2018-04-04 18:04] LABS: Glucose,Whole Blood 188 mg/dL (75-99)
[2018-04-04] MEDS: LORATADINE 10 MG TAB PO SCH (18:41)
[2018-04-04] MEDS: PANTOPRAZOLE 40 MG/10 ML VIAL IVP SCH (18:41)
[2018-04-04] MEDS: SILDENAFIL 20 MG TAB PO SCH ×2 (18:42→21:03)
[2018-04-04 18:53] VITALS: RESP 18
[2018-04-04] MEDS ORDERED: ACETAMINOPHEN TAB 325 MG TAB PO PRN (20:03)
[2018-04-04] MEDS: DOXYCYCLINE 100 MG CAP PO SCH (21:03)
[2018-04-04 21:11] LABS: Glucose,Whole Blood 279 mg/dL (75-99)
[2018-04-04] MEDS: INSULIN ASPART (NovoLOG) 100 UNIT/ML VIAL SQ SCH (22:35)
[2018-04-05 02:02] LABS: Glucose,Whole Blood 131 mg/dL (75-99)
[2018-04-05] MEDS: INSULIN ASPART (NovoLOG) 100 UNIT/ML VIAL SQ SCH ×2 (05:08→07:41)
[2018-04-05 05:39] LABS: Glucose,Whole Blood 86 mg/dL (75-99)
[2018-04-05 07:21] LABS: Glucose,Whole Blood 88 mg/dL (75-99)
[2018-04-05 07:25] VITALS: BP 164/78; PULSE 73; TEMP 97.9
[2018-04-05] MEDS ORDERED: INSULN ASP PRT/INSULIN ASPART 100 UNIT/ML 10 ML VIAL SQ SCH (07:30)
[2018-04-05 07:53] LABS: Hemoglobin A1C 8.5 % (4.0-6.0)
[2018-04-05] MEDS: SILDENAFIL 20 MG TAB PO SCH (08:03)
[2018-04-05] MEDS: DOXYCYCLINE 100 MG CAP PO SCH (08:03)
[2018-04-05] MEDS: PANTOPRAZOLE 40 MG/10 ML VIAL IVP SCH (08:03)
[2018-04-05] MEDS: LORATADINE 10 MG TAB PO SCH (08:03)
[2018-04-05] MEDS ORDERED: metFORMIN 500 MG TAB PO SCH ×2 (08:15→09:00)
[2018-04-05] MEDS ORDERED: LISINOPRIL 10 MG TAB PO SCH (09:00)
[2018-04-05] MEDS ORDERED: ATORVASTATIN 20 MG TAB PO SCH (09:00)
[2018-04-05 10:07] LABS: INR 1.8 (<1.2); Prothrombin Time 17.5 sec (9.0-12.0)
[2018-04-05 11:17] LABS: Glucose,Whole Blood 78 mg/dL (75-99)
[2018-04-05] MEDS ORDERED: WARFARIN 5 MG TAB PO SCH (18:00)
--- NOTE | 2018-04-05 18:27 | P.DS ---
Providers Date of admission: 04/04/18 10:54 Expected date of discharge: 04/05/18 Attending physician: Jolly Bernardo [facility] Course: Final Diagnoses: -Hypoglycemia leading to mildly decreased responsiveness patient's insulin discontinued, resolved. -Retro-orbital headache: CAT scan of the head did not show any significant acute abnormality, headache is probably secondary to sinusitis,allogenic -Gastritis -Type 2 diabetes mellitus, HGB A1c 8.5 -Hyperlipidemia -Hypertension -History of aortic regurgitation with mechanical aortic valve on coumadin. Hospital course:52-year-old male came in with decreased responsiveness which is believed to be secondary to low blood sugars and his blood sugars were around 43 when he allowed to ER and patient improved now patient is alert oriented times is complaining of retro-orbital pain secondary to sinusitis mostly probably from ALLERGIES. Patient is comparing of massive congestion with clear discharge and patient denied any sputum production does have cough. Patient on multiple medications although not documented on emr, patient is on and vomiting , Januvia which she is not taking now, Jardiance, 70/30 insulin 10 units twice a day and patient did take 70/30 last night as his blood sugars are elevated. Patient did have an unintentional weight loss from depression, which has been going on for about a year. Patient denied any fever chills no other signs or symptoms of sepsis patient does have mechanical aortic valve and his target INR is 2.5-3.5 and his INR is presently 3. Patient was comparing of epigastric abdominal discomfort burning sensation, check EKG showed normal sinus rhythm troponin is negative. Patient's insulin discontinued, no further hypoglycemic episodes. Blood sugars stable. Maintained on Claritin, antibiotics for sinusitis/headache. Significant clinical improvement. Patient will be resumed on his metformin only , starting tomorrow in addition to doxycycline, Claritin and Protonix. Continue holding insulin. Patient has been advised to maintain log of Accu- Cheks and take to follow-up visit with PCP for further recommendations. EXAM:GENERAL: The patient is alert and oriented x3, not in any acute distress. CARDIOVASCULAR: S1 and S2 present. No murmurs, rubs, or gallops. PULMONARY: Chest is clear to auscultation, no wheezing or crackles. ABDOMEN: Soft, nontender, nondistended, normoactive bowel sounds. No palpable organomegaly. NEUROLOGICAL: Gross neurological examination did not reveal any focal deficits. The impression and plan of care has been dictated as directed. : I performed a history and examination of this patient, discussed the same with the dictator. I agree with the dictator's note ,documented as a scribe. Any additional findings or plans will be noted. Time taken: 35 minutes Patient Condition at Discharge: Stable Plan - Discharge Summary New Discharge Prescriptions: New Doxycycline [Vibramycin] 100 mg PO BID #6 cap Loratadine [Claritin] 10 mg PO DAILY #10 tab Pantoprazole Sodium [Protonix] 40 mg PO DAILY #14 tablet. Continue Simvastatin [Zocor] 40 mg PO DAILY Cholecalciferol [Vitamin D3] 3,000 unit PO DAILY Cinnamon Bark [Cinnamon] 1,000 mg PO DAILY Sildenafil [Revatio] 60 mg PO DAILY PRN PRN Reason: ANTI-HYPERTENSIVE Enalapril Maleate [Vasotec] 5 mg PO DAILY Warfarin [Coumadin] 10 mg PO DAILY metFORMIN HCL [Glucophage] 1,000 mg PO BID #0 Discontinued Insulin NPH Hum/Reg Insulin Hm [NovoLIN 70-30 100 UNIT/ML VIAL] 10 unit SQ AC -BID Discharge Medication List Simvastatin [Zocor] 40 mg PO DAILY 09/27/14 [History] Cholecalciferol [Vitamin D3] 3,000 unit PO DAILY 04/04/18 [History] Cinnamon Bark [Cinnamon] 1,000 mg PO DAILY 04/04/18 [History] Enalapril Maleate [Vasotec] 5 mg PO DAILY 04/04/18 [History] Sildenafil [Revatio] 60 mg PO DAILY PRN 04/04/18 [History] Warfarin [Coumadin] 10 mg PO DAILY 04/04/18 [History] Doxycycline [Vibramycin] 100 mg PO BID #6 cap 04/05/18 [Rx] Loratadine [Claritin] 10 mg PO DAILY #10 tab 04/05/18 [Rx] Pantoprazole Sodium [Protonix] 40 mg PO DAILY #14 tablet. 04/05/18 [Rx] metFORMIN HCL [Glucophage] 1,000 mg PO BID #0 04/05/18 [Rx] Follow up Appointment(s)/Referral(s): Bogdan Wu DO [Primary Care Provider] - 3 Days Ambulatory/Diagnostic Orders: Prothrombin Time INR [LAB.AMB] Time Frame: 3 Days, Location: None Selected Patient Instructions/Handouts: Hypoglycemia in a Person with Diabetes (DC) Activity/Diet/Wound Care/Special Instructions: Diet: consist Carb. Accu cheks ACHS, maintain log, take to F/U visit with PCP for further rec. Activity: limited till F/U Discharge Disposition: HOME SELF-CARE
== END 2018-04-05 12:10 | disposition home or self-care (01) | DRG 639 ==
LOC: EC 06:48 → 4MS4W 10:54
PROVIDERS: ADMIT Hospitalist; ATTEND Hospitalist
DX: E11.649 Type 2 diabetes mellitus with hypoglycemia without coma (principal); E78.5 Hyperlipidemia, unspecified; F32.9 Major depressive disorder, single episode, unspecified; I10 Essential (primary) hypertension; I25.10 Atherosclerotic heart disease of native coronary artery without angina pectoris; I35.1 Nonrheumatic aortic (valve) insufficiency; I49.3 Ventricular premature depolarization; K21.9 Gastro-esophageal reflux disease without esophagitis; K29.70 Gastritis, unspecified, without bleeding; Z79.01 Long term (current) use of anticoagulants; Z79.4 Long term (current) use of insulin; Z80.8 Family history of malignant neoplasm of other organs or systems; Z95.2 Presence of prosthetic heart valve; J32.9 Chronic sinusitis, unspecified; Z79.899 Other long term (current) drug therapy
CPT/HCPCS: 36415; 70450; 71045; 80053; 80306; 81003; 83036; 84484; 85025; 85610; 85730; 93005; 96361; 96374; 96375; 99285

== ENCOUNTER 2018-08-06 05:39 | Observation (INO) | payer OTHER ==
--- NOTE | 2018-08-06 05:55 | ED ---
Recheck HPI - General Chief Complaint: Recheck/Abnormal Lab/Rx Stated Complaint: Hypoglycemia Time Seen by Provider: 08/06/18 05:54 Source: EMS Mode of arrival: ambulatory Limitations: no limitations - History of Present Illness Initial Comments: Matthias is a 53 yo male with history of insulin-dependent diabetes and episodes of hypoglycemia in the past. Patient presents today via EMS after his significant other found him sweating and minimally responsive in bed. She reports his breathing and moaning but she could not wake him. This is similar to previous episodes of hypoglycemia. In the past after becoming hypoglycemic the patient has remained confused and hard to arouse for multiple hours after waking. EMS arrived on scene finding the patient with a glucose of 44, IV access was obtained he was given an amp of D50 glucose initially improved to 170 during transport. Patient remains sleeping but would wake to voice was able to state his name but was confused as to events leading up to hospitalization. Significant other bedside does report that the patient had been drinking alcohol yesterday, his glucose at bedtime she reports was near 300 he gave himself insulin she is unsure of the dose. She reports that this is happened in the pas t they've followed with endocrinology he is no longer on long-acting insulin and just takes short acting. - Related Data Home Medications Medication Instructions Recorded Confirmed Simvastatin [Zocor] 40 mg PO DAILY 09/27/14 08/06/18 Enalapril Maleate [Vasotec] 5 mg PO DAILY 04/04/18 08/06/18 Warfarin [Coumadin] 10 mg PO DAILY 04/04/18 08/06/18 Previous Rx's Medication Instructions Recorded metFORMIN HCL [Glucophage] 1,000 mg PO BID #0 04/05/18 Allergies Allergy/AdvReac Type Severity Reaction Status Date / Time No Known Allergies Allergy Verified 08/06/18 07:34 Review of Systems ROS Statement: Those systems with pertinent positive or pertinent negative responses have been documented in the HPI. ROS Other: All systems not noted in ROS Statement are negative. Past Medical History Past Medical History: Coronary Artery Disease (CAD), Diabetes Mellitus, Eye Disorder, GERD/Reflux, Hyperlipidemia, Hypertension Additional Past Medical History / Comment(s): Recent cold, leaking aortic valve and had prosthetic aortic valve replacement, IDDM type II, bilateral eye injections for leaky vessels behind eye, epistaxix with coumadin use, syncope r/t diabetes. History of Any Multi-Drug Resistant Organisms: None Reported Past Surgical History: Cardiac Valve Replacement Additional Past Surgical History / Comment(s): aortic valve replacement done at [facility]. Past Anesthesia/Blood Transfusion Reactions: No Reported Reaction Past Psychological History: No Psychological Hx Reported Smoking Status: Never smoker - Past Family History Father Family Medical History: Cancer Additional Family Medical History / Comment(s): Father at the age of 68yrs fromsquamous cell carcinoma. Mother Family Medical History: Cancer Additional Family Medical History / Comment(s): Mother from Ewings sarcoma at the age of 57yrs. General Exam - General Exam Comments Initial Comments: Physical Exam GENERAL: Well-developed well-nourished male resting in bed HENT: Normocephalic, Atraumatic. EYES: PERRL, EOMI PULMONARY: Unlabored respirations. No audible rales rhonchi or wheezing was noted. CARDIOVASCULAR: There is a regular rate and rhythm without any murmurs gallops or rubs. ABDOMEN: Soft and nontender with normal bowel sounds. SKIN: Skin is clear with no lesions or rashes and otherwise unremarkable. : Deferred NEUROLOGIC: Sleeping, wakes to voice, oriented to self only MUSCULOSKELETAL: Normal extremities with adequate strength and full range of motion. No lower extremity swelling or edema. No calf tenderness. PSYCHIATRIC: Pleasantly confused Limitations: no limitations Course Vital Signs 08/06/18 05:41 Temperature 97.6 F Pulse Rate 63 Respiratory 18 Rate Blood Pressure 170/92 O2 Sat by Pulse 96 Oximetry Medical Decision Making - Medical Decision Making The patient was seen and evaluated, history was obtained from EMS and patient's family at bedside Insulin-dependent diabetic with history of episodes of hypoglycemia in the past Patient was hypoglycemic reported this arrival, he was given an amp of D50 glucose improving 170 upon arrival at his decreased back down to 99, patient is awake enough to drink juice but quickly falls back asleep Labs, D5 were ordered CBC CMP within normal limits Glucose remains in the low 90s patient remains somnolent At this time we will place the patient in observation for further management of hypoglycemia and confusion. - Lab Data Result diagrams: 08/06/18 06:00 08/06/18 06:00 Lab Results 08/06/18 08/06/18 08/06/18 Range/Units 05:53 06:00 06:00 WBC 7.7 (3.8-10.6) k/uL RBC 5.24 (4.30-5.90) m/uL Hgb 14.8 (13.0-17.5) gm/dL Hct 45.1 (39.0-53.0) % MCV 86.1 (80.0-100.0) fL MCH 28.3 (25.0-35.0) pg MCHC 32.9 (31.0-37.0) g/dL RDW 13.4 (11.5-15.5) % Plt Count 215 (150-450) k/uL Neutrophils % 87 % Lymphocytes % 6 % Monocytes % 6 % Eosinophils % 1 % Basophils % 0 % Neutrophils # 6.7 (1.3-7.7) k/uL Lymphocytes # 0.5 L (1.0-4.8) k/uL Monocytes # 0.4 (0-1.0) k/uL Eosinophils # 0.1 (0-0.7) k/uL Basophils # 0.0 (0-0.2) k/uL Sodium 139 (137-145) mmol/L Potassium 3.2 L (3.5-5.1) mmol/L Chloride 104 (98-107) mmol/L Carbon Dioxide 29 (22-30) mmol/L Anion Gap 6 mmol/L BUN 13 (9-20) mg/dL Creatinine 0.69 (0.66-1.25) mg/dL Est GFR (CKD-EPI)AfAm >90 (>60 ml/min/1.73 sqM) Est GFR (CKD-EPI)NonAf >90 (>60 ml/min/1.73 sqM) Glucose 104 H (74-99) mg/dL POC Glucose (mg/dL) 99 (75-99) mg/dL POC Glu Senior Interaction Designer ID Rodo Zully Calcium 8.6 (8.4-10.2) mg/dL Total Bilirubin 0.7 (0.2-1.3) mg/dL AST 24 (17-59) U/L ALT 20 L (21-72) U/L Alkaline Phosphatase 73 (38-126) U/L Total Protein 6.5 (6.3-8.2) g/dL Albumin 3.9 (3.5-5.0) g/dL Lipase 26 (23-300) U/L 08/06/18 Range/Units 06:43 WBC (3.8-10.6) k/uL RBC (4.30-5.90) m/uL Hgb (13.0-17.5) gm/dL Hct (39.0-53.0) % MCV (80.0-100.0) fL MCH (25.0-35.0) pg MCHC (31.0-37.0) g/dL RDW (11.5-15.5) % Plt Count (150-450) k/uL Neutrophils % % Lymphocytes % % Monocytes % % Eosinophils % % Basophils % % Neutrophils # (1.3-7.7) k/uL Lymphocytes # (1.0-4.8) k/uL Monocytes # (0-1.0) k/uL Eosinophils # (0-0.7) k/uL Basophils # (0-0.2) k/uL Sodium (137-145) mmol/L Potassium (3.5-5.1) mmol/L Chloride (98-107) mmol/L Carbon Dioxide (22-30) mmol/L Anion Gap mmol/L BUN (9-20) mg/dL Creatinine (0.66-1.25) mg/dL Est GFR (CKD-EPI)AfAm (>60 ml/min/1.73 sqM) Est GFR (CKD-EPI)NonAf (>60 ml/min/1.73 sqM) Glucose (74-99) mg/dL POC Glucose (mg/dL) 96 (75-99) mg/dL POC Glu Senior Interaction Designer ID [email or web address] Calcium (8.4-10.2) mg/dL Total Bilirubin (0.2-1.3) mg/dL AST (17-59) U/L ALT (21-72) U/L Alkaline Phosphatase (38-126) U/L Total Protein (6.3-8.2) g/dL Albumin (3.5-5.0) g/dL Lipase (23-300) U/L Disposition Clinical Impression: Hypoglycemia Disposition: ADMITTED IP TO THIS [facility] Condition: Stable Is patient prescribed a controlled substance at d/c from ED?: No Referrals: Bogdan Wu DO [Primary Care Provider] - 1-2 days
[2018-08-06 05:56] LABS: Glucose,Whole Blood 99 mg/dL (75-99)
[2018-08-06] MEDS ORDERED: DEXTROSE 5%-0.9% NACL 1,000 ML IV SCH (06:30)
[2018-08-06 06:40] LABS: Basophils % (A) 0 %; Eosinophils # (A) 0.1 k/uL (0-0.7); Eosinophils % (A) 1 %; HCT 45.1 % (39.0-53.0); HGB 14.8 gm/dL (13.0-17.5); Lymphocytes # (A) 0.5 k/uL (1.0-4.8); Lymphocytes % (A) 6 %; MCH 28.3 pg (25.0-35.0); MCHC 32.9 g/dL (31.0-37.0); MCV 86.1 fL (80.0-100.0); Mean Platelet Volume 7.5; Monocytes # (A) 0.4 k/uL (0-1.0); Monocytes % (A) 6 %; Neutrophils # (A) 6.7 k/uL (1.3-7.7); Neutrophils % (A) 87 %; Platelet Count 215 k/uL (150-450); RBC 5.24 m/uL (4.30-5.90); RDW 13.4 % (11.5-15.5); WBC 7.7 k/uL (3.8-10.6)
[2018-08-06 06:44] LABS: Glucose,Whole Blood 96 mg/dL (75-99)
[2018-08-06 06:51] LABS: ALT 20 U/L (21-72); AST 24 U/L (17-59); African American GFR (CKD) >90 (>60 ml/min/1.73 sqM); Albumin 3.9 g/dL (3.5-5.0); Alkaline Phosphatase 73 U/L (38-126); Anion Gap 6 mmol/L; Blood Urea Nitrogen 13 mg/dL (9-20); Calcium 8.6 mg/dL (8.4-10.2); Carbon Dioxide 29 mmol/L (22-30); Chloride 104 mmol/L (98-107); Glucose 104 mg/dL (74-99); Lipase 26 U/L (23-300); Potassium 3.2 mmol/L (3.5-5.1); Sodium 139 mmol/L (137-145); Total Bilirubin 0.7 mg/dL (0.2-1.3); Total Protein 6.5 g/dL (6.3-8.2)
[2018-08-06] MEDS ORDERED: Potassium Replacement Protocol 1 EACH MISC MISCELLANE PRN (07:00)
[2018-08-06] MEDS ORDERED: NALOXONE 0.4 MG/ML 1 ML VIAL IV PRN (07:18)
[2018-08-06] MEDS: POTASSIUM CHLORIDE ER 20 MEQ TAB.ER PO SCH ×2 (07:28→08:45)
[2018-08-06] MEDS ORDERED: ACETAMINOPHEN TAB 325 MG TAB PO STA (07:43)
[2018-08-06 07:55] LABS: Glucose,Whole Blood 120 mg/dL (75-99)
[2018-08-06] MEDS ORDERED: ACETAMINOPHEN TAB 325 MG TAB PO PRN (09:36)
[2018-08-06 09:48] VITALS: BMI 28.8
[2018-08-06 10:03] LABS: Glucose,Whole Blood 124 mg/dL (75-99)
[2018-08-06 11:57] LABS: Glucose,Whole Blood 197 mg/dL (75-99)
[2018-08-06 13:54] LABS: Glucose,Whole Blood 241 mg/dL (75-99)
[2018-08-06 14:02] LABS: INR 2.4 (<1.2); Prothrombin Time 23.3 sec (9.0-12.0)
[2018-08-06 15:56] LABS: Glucose,Whole Blood 202 mg/dL (75-99)
[2018-08-06] MEDS ORDERED: ALPRAZolam 0.25 MG TAB PO PRN (17:37)
[2018-08-06] MEDS ORDERED: TEMAZEPAM 15 MG CAP PO PRN (17:37)
[2018-08-06] MEDS ORDERED: HYDROcodone/APAP 5-325MG 1 EACH TAB PO PRN (17:37)
[2018-08-06 17:56] LABS: Glucose,Whole Blood 83 mg/dL (75-99)
[2018-08-06] MEDS ORDERED: WARFARIN 10 MG TAB PO SCH (18:00)
[2018-08-06] MEDS ORDERED: WARFARIN 5 MG TAB PO SCH (18:00)
[2018-08-06] MEDS: INSULIN ASPART (NovoLOG) 100 UNIT/ML VIAL SQ SCH ×2 (18:20→20:57)
[2018-08-06] MEDS: ATORVASTATIN 20 MG TAB PO SCH (18:21)
[2018-08-06 19:30] LABS: Appearance,Urine Clear (Clear); Bilirubin,Urine Negative (Negative); Blood,Urine Negative (Negative); Color,Urine Colorless; Glucose,Urine (UA) Negative (Negative); Ketones,Urine Negative (Negative); Leukocyte Esterase,Urine Negative (Negative); Nitrite,Urine Negative (Negative); PH, Urine 7.5 (5.0-8.0); Protein,Urine Negative (Negative); Specific Gravity,Urine 1.003 (1.001-1.035); Urobilinogen,Urine <2.0 mg/dL (<2.0)
[2018-08-06 19:37] LABS: Amphetamine Screen,Urine Not Detected (NotDetected); Barbiturate Screen,Urine Not Detected (NotDetected); Benzodiazepines Screen,Urine Not Detected (NotDetected); Cocaine Screen,Urine Not Detected (NotDetected); Methadone Screen, Urine Not Detected (NotDetected); Opiate Screen,Urine Not Detected (NotDetected); Oxycodone Screen, Urine Not Detected (NotDetected); Phencyclidine Screen,Urine Not Detected (NotDetected); Tricyclic Antidepressant,Urine Not Detected (NotDetected); Urn Cannabinoid Scrn Not Detected (NotDetected)
[2018-08-06 20:04] LABS: Glucose,Whole Blood 156 mg/dL (75-99)
[2018-08-06] MEDS ORDERED: INSULN ASP PRT/INSULIN ASPART 100 UNIT/ML 10 ML VIAL SQ SCH (21:00)
[2018-08-06] MEDS ORDERED: metFORMIN 500 MG TAB PO SCH (21:00)
--- NOTE | 2018-08-06 21:26 | HP ---
HISTORY AND PHYSICAL DATE OF SERVICE: 08/06/2018 CHIEF COMPLAINT: Hypoglycemia. HISTORY OF PRESENT ILLNESS: This 53-year-old gentleman with a past medical history of multiple medical problems including diabetes for 15 years, history of CAD, history of GERD, hypertension, hyperlipidemia, history of leaking aortic valve and prosthetic aortic valve replacement, history of bilateral injections, history of aortic valve replacement, being followed by Dr. Wu in the outpatient setting was noted to have hypoglycemia. The patient apparently has fluctuated blood pressure. Patient also had sweating and the blood sugar was in the 60s and then 44. D50 was given. The patient was confused and the patient came to [facility] and admitted to the hospital for further evaluation and treatment. There is no history of fever, rigors or chills. No history of headache, loss of consciousness or seizures. The patient has seen Dr. Melton, the tax manager public, for continued monitoring of the blood sugars and cutting down insulins. PAST MEDICAL HISTORY: CAD, diabetes, GERD, hypertension, hyperlipidemia, cardiac valve replacement. MEDICATIONS: Prior to admission include home medications are: 1. Insulin NPH 7 units q.h.s. and 15 units subcu q.a.m. 2. Coumadin 10 mg p.o. daily. 3. Zocor 40 mg p.o. daily. 4. Vasotec 5 mg daily. 5. Glucophage 1000 mg p.o. b.i.d. ALLERGIES: None. FAMILY HISTORY: History of squamous cell carcinoma in the family. SOCIAL HISTORY: No history of smoking. Occasional history of alcohol intake. REVIEW OF SYSTEMS: ENT: No diminished vision. No diminished hearing. CARDIOVASCULAR: No angina. No palpitations. RESPIRATION: No cough. GI no nausea or vomiting. no dysuria. NERVOUS SYSTEM: No numbness or weakness. ALLERGY/IMMUNOLOGY: No asthma or hayfever. MUSCULOSKELETAL as mentioned earlier. HEMATOLOGY/ONCOLOGY: No history of anemia. ENDOCRINE: History of diabetes. No hypothyroidism. CONSTITUTIONAL: As mentioned earlier. DERMATOLOGY: Negative. RHEUMATOLOGY: Negative. PSYCHIATRIC: As mentioned earlier. PHYSICAL EXAMINATION: Alert and oriented x3. Blood pressure 158/70, respirations 16, temperature 98 degrees, pulse ox 96% on room air. HEENT: Conjunctivae normal. Oral mucosa moist. NECK is no jugular venous distention. No carotid bruit. No lymph node enlargement. CARDIOVASCULAR SYSTEM: Status post and surgery and S2 is prosthetic. Ejection systolic murmur present. No S3. No S4. RESPIRATORY: Breath sounds diminished in the bases. No rhonchi. No crackles. ABDOMEN: Soft, nontender. No mass palpable. LEGS: No edema. No swelling. NERVOUS SYSTEM: Higher functions as mentioned earlier. Moves all 4 limbs. No focal motor or sensory deficits. LYMPHATICS: No lymph nodes palpable in the neck, axillae or groin. SKIN: No ulcer, rashes or bleeding. JOINTS: No active deforming arthropathy. LABS: CBC within normal limits. INR is 2.4. Sodium 130, potassium 3.2. ASSESSMENT: 1. Diabetes mellitus type 2, uncontrolled with hypoglycemia. 2. Hypokalemia. 3. History of aortic replenishment for aortic regurgitation. 4. History of diabetic nephropathy. 5. Hypertension. 6. Hyperlipidemia. 7. Gastroesophageal reflux disease. RECOMMENDATIONS AND DISCUSSION: In this 53-year-old gentleman who presented with multiple complex medical issues, we will monitor the patient closely, continue the current medications, management and symptomatic treatment. We will cut down the dose of insulin further to 10 units in the morning and continue to monitor. Continue the rest of medications. See orders for details. Guarded prognosis. Further recommendations to follow. I also recommend the patient to follow up with Dr. Melton closely after discharge. ARPITA / BETTYN: [id number] / MTDTy
[2018-08-06 22:29] LABS: Glucose,Whole Blood 134 mg/dL (75-99)
[2018-08-06 23:53] LABS: Glucose,Whole Blood 76 mg/dL (75-99)
[2018-08-07 02:12] LABS: Glucose,Whole Blood 128 mg/dL (75-99)
[2018-08-07] MEDS: INSULIN ASPART (NovoLOG) 100 UNIT/ML VIAL SQ SCH ×2 (03:07→07:26)
[2018-08-07 04:07] LABS: Glucose,Whole Blood 85 mg/dL (75-99)
[2018-08-07 06:03] LABS: Glucose,Whole Blood 99 mg/dL (75-99)
[2018-08-07] MEDS ORDERED: PANTOPRAZOLE 40 MG TABLET PO SCH (07:30)
[2018-08-07 07:56] LABS: Glucose,Whole Blood 85 mg/dL (75-99)
[2018-08-07] MEDS: ATORVASTATIN 20 MG TAB PO SCH (07:58)
[2018-08-07] MEDS ORDERED: INSULN ASP PRT/INSULIN ASPART 100 UNIT/ML 10 ML VIAL SQ SCH (09:00)
[2018-08-07] MEDS ORDERED: LISINOPRIL 10 MG TAB PO SCH (09:00)
[2018-08-07 09:02] LABS: Basophils % (A) 1 %; Eosinophils # (A) 0.1 k/uL (0-0.7); Eosinophils % (A) 4 %; HCT 42.5 % (39.0-53.0); Lymphocytes % (A) 30 %; MCH 28.9 pg (25.0-35.0); MCHC 32.9 g/dL (31.0-37.0); MCV 87.9 fL (80.0-100.0); Mean Platelet Volume 8.3; Monocytes # (A) 0.2 k/uL (0-1.0); Monocytes % (A) 7 %; Neutrophils # (A) 1.9 k/uL (1.3-7.7); Neutrophils % (A) 56 %; Platelet Count 204 k/uL (150-450); RBC 4.83 m/uL (4.30-5.90); RDW 15.2 % (11.5-15.5); WBC 3.4 k/uL (3.8-10.6)
[2018-08-07 09:19] LABS: INR 2.3 (<1.2); Prothrombin Time 22.3 sec (9.0-12.0)
[2018-08-07 09:20] LABS: African American GFR (CKD) >90 (>60 ml/min/1.73 sqM); Anion Gap 4 mmol/L; Blood Urea Nitrogen 9 mg/dL (9-20); Calcium 8.9 mg/dL (8.4-10.2); Carbon Dioxide 31 mmol/L (22-30); Chloride 105 mmol/L (98-107); Glucose 81 mg/dL (74-99); Sodium 140 mmol/L (137-145)
[2018-08-07 09:51] LABS: Glucose,Whole Blood 103 mg/dL (75-99)
[2018-08-07 11:51] LABS: Glucose,Whole Blood 100 mg/dL (75-99)
[2018-08-07 12:06] VITALS: BP 184/84; PULSE 84; RESP 16; TEMP 97.5
--- NOTE | 2018-08-07 13:37 | P.DS ---
Providers Date of admission: 08/06/18 07:18 Expected date of discharge: 08/07/18 Attending physician: Baljinder Baldwin MD Primary care physician: Bogdan Wu [facility] Course: HISTORY OF PRESENT ILLNESS: This is a 53-year-old male who is a patient of Dr. Baljinder Baldwin MD. He has a past medical history of diabetes, CAD, GERD, hypertension, hyperlipidemia, history of leaking aortic valve and prosthetic aortic valve replacement, history of bilateral injections, history of aortic valve replacement, and is being followed by Dr. Wu outpatient. He was admitted to the hospital yesterday for hypoglycemia. Review Of Systems: Constitutional: No fever, no chills, no night sweats. No weight change. No weakness, fatigue or lethargy. No daytime sleepiness. EENT: No headache. No blurred vision or double vision, no loss of vision. No loss of Hearing, no ringing in the ears, no dizziness. No nasal drainage or congestion. No epistaxis. No sore throat. Lungs: No shortness of breath, cough, no sputum production. No wheezing. Cardiovascular: No chest pain, no lower extremity edema. No palpitations. No paroxysmal nocturnal dyspnea. No orthopnea. No lightheadedness or dizziness. No syncopal episodes. Abdominal: No abdominal pain. No nausea, vomiting. No diarrhea. No constipation. No bloody or tarry stools.. No loss of appetite. Genitourinary: No dysuria, increased frequency, urgency. No urinary retention. Musculoskeletal: No myalgias. No muscle weakness, no gait dysfunction, no frequent falls. No back pain. No neck pain. Integumentary: No wounds, no lesions. No rash or pruritus. No unusual brui sing. No change in hair or nails. Neurologic: No aphasia. No facial droop. No change in mentation. No head injury. No headache. No paralysis. No paresthesia. Psychiatric: No depression. No anxiety. No mood swings. Endocrine: No abnormal blood sugars. No weight change. No excessive sweating or thirst. No cold intolerance. Physical: HEENT: Head is atraumatic, normocephalic. Pupils equal, round. Sclerae is anicteric. NECK: Supple. No JVD. No lymphadenopathy. No thyromegaly. LUNGS: Clear to auscultation. No wheezes or rhonchi. No intercostal retractions. HEART: Regular rate and rhythm. No murmur. ABDOMEN: Soft. Bowel sounds are present. No masses. No tenderness. EXTREMITIES: No pedal edema. No calf tenderness. NEUROLOGICAL: Patient is awake, alert and oriented x3. Cranial nerves 2 through 12 are grossly intact. Assessment: 1 diabetes mellitus type 2, with uncontrolled hypoglycemia 2 hypokalemia 3 hypertension 4 hyperlipidemia 5 gastroesophageal reflux disease 6 history of diabetic nephropathy Plan: Patient is to follow-up with Geronimo Dodge with endocrine this week or early next week to discuss diabetes medications and possible weaning off insulins. Patient was given a diabetic sliding scale to follow. Patient instructed to check blood sugars with each meal and at bedtime and monitor closely. Patient instructed to keep a log for his follow-up appointment of his blood sugar testings. Patient also instructed to avoid drinking any alcohol as this can alter and change his blood glucose levels. Plan - Discharge Summary Discharge Rx Participant: No New Discharge Prescriptions: No Action Simvastatin [Zocor] 40 mg PO DAILY Enalapril Maleate [Vasotec] 5 mg PO DAILY Warfarin [Coumadin] 10 mg PO DAILY metFORMIN HCL [Glucophage] 1,000 mg PO BID #0 Insulin NPH Hum/Reg Insulin Hm [Relion Novolin 70-30 Flexpen] 15 units SQ QAM Insulin NPH Hum/Reg Insulin Hm [Relion Novolin 70-30 Flexpen] 7 units SQ HS Discharge Medication List Simvastatin [Zocor] 40 mg PO DAILY 09/27/14 [History] Enalapril Maleate [Vasotec] 5 mg PO DAILY 04/04/18 [History] Warfarin [Coumadin] 10 mg PO DAILY 04/04/18 [History] metFORMIN HCL [Glucophage] 1,000 mg PO BID #0 04/05/18 [Rx] Insulin NPH Hum/Reg Insulin Hm [Relion Novolin 70-30 Flexpen] 7 units SQ HS 08/06/18 [History] Insulin NPH Hum/Reg Insulin Hm [Relion Novolin 70-30 Flexpen] 15 units SQ QAM 08/06/18 [History] Follow up Appointment(s)/Referral(s): Verena Melton MD [STAFF PHYSICIAN] - 08/15/18 10:15 am Bogdan Wu DO [Primary Care Provider] - 08/14/18 1:20 pm Patient Instructions/Handouts: Non-diabetic Hypoglycemia (ED), Hypoglycemia in a Person with Diabetes (DC) Activity/Diet/Wound Care/Special Instructions: Continue monitoring blood sugars with meals and at bedtime. Hold long acting insulins and continue with short acting with blood sugar checks. Follow the sliding scale: <150 0 units 151-200 2 units 201-250 4 units 251-300 6 units 301-350 8 units >350 10 units Follow up with endocrine and primary care provider this week. Activity as tolerated Continue following diabetic diet Avoid any alcohol intake Discharge Disposition: HOME SELF-CARE
== END 2018-08-07 12:05 | disposition home or self-care (01) ==
LOC: EC 05:39 → 3NMEDONC 07:18
PROVIDERS: ADMIT Internal Medicine; ATTEND Internal Medicine
DX: E11.649 Type 2 diabetes mellitus with hypoglycemia without coma (principal); E87.6 Hypokalemia; E11.21 Type 2 diabetes mellitus with diabetic nephropathy; K21.9 Gastro-esophageal reflux disease without esophagitis; I25.10 Atherosclerotic heart disease of native coronary artery without angina pectoris; I10 Essential (primary) hypertension; E78.5 Hyperlipidemia, unspecified; H57.9 Unspecified disorder of eye and adnexa; Z79.01 Long term (current) use of anticoagulants; Z79.4 Long term (current) use of insulin; Z79.899 Other long term (current) drug therapy; Z95.2 Presence of prosthetic heart valve; Z86.79 Personal history of other diseases of the circulatory system; Z80.8 Family history of malignant neoplasm of other organs or systems
CPT/HCPCS: 96366 ×2; 96365; 99285; 36415; 80053; 80048; 83690; 85025 ×2; 85610 ×2; 81003; 80306; G0378 ×2

== ENCOUNTER 2019-02-25 09:53 | Emergency (ER) | payer OTHER ==
[~2019-02-25 09:53] MED LIST: HUMAN PROTHROMBIN COMPLX 500 UNIT/16 ML VIAL IV ONE
[2019-02-25] MEDS ORDERED: IBUPROFEN 600 MG TAB PO STA (10:23)
[2019-02-25] MEDS ORDERED: SODIUM CHLORIDE 0.9% 1,000 ML IV STA (10:23)
[2019-02-25 10:52] LABS: Basophils # (A) 0.2 k/uL (0-0.2); Basophils % (A) 1 %; Eosinophils % (A) 0 %; HCT 41.3 % (39.0-53.0); HGB 13.6 gm/dL (13.0-17.5); Lymphocytes # (A) 0.4 k/uL (1.0-4.8); Lymphocytes % (A) 3 %; MCH 28.6 pg (25.0-35.0); MCHC 32.9 g/dL (31.0-37.0); MCV 87.1 fL (80.0-100.0); Mean Platelet Volume 8.4; Monocytes # (A) 0.5 k/uL (0-1.0); Monocytes % (A) 4 %; Neutrophils % (A) 92 %; Platelet Count 396 k/uL (150-450); RBC 4.74 m/uL (4.30-5.90); RDW 13.1 % (11.5-15.5); WBC 14.2 k/uL (3.8-10.6)
[2019-02-25 11:05] LABS: Amorphous Sediment,Urine Occasional /hpf; Appearance,Urine Turbid (Clear); Bilirubin,Urine Negative (Negative); Blood,Urine Moderate (Negative); Color,Urine Yellow; Glucose,Urine (UA) 1+ (Negative); Granular Casts,Urine 26 /lpf (0); Hyaline Casts,Urine 13 /lpf (0-2); Ketones,Urine Negative (Negative); Leukocyte Esterase,Urine Small (Negative); Mucus,Urine Rare /hpf; Nitrite,Urine Negative (Negative); PH, Urine 5.5 (5.0-8.0); Protein,Urine 2+ (Negative); RBC,Urine 28 /hpf (0-5); Specific Gravity,Urine 1.018 (1.001-1.035); Squamous Epithelial Cell,Urine 1 /hpf (0-4); Urobilinogen,Urine <2.0 mg/dL (<2.0); WBC,Urine 23 /hpf (0-5)
[2019-02-25 11:08] LABS: Calcium 8.2 mg/dL (8.4-10.2); Potassium 3.4 mmol/L (3.5-5.1); Total Bilirubin 1.1 mg/dL (0.2-1.3); Total Protein 6.1 g/dL (6.3-8.2)
[2019-02-25 11:11] LABS: Prothrombin Time 103.3 sec (9.0-12.0)
[2019-02-25] MEDS ORDERED: cefTRIAXone IN SWFI 1,000 MG/10 ML SYRINGE IVP STA (11:15)
--- NOTE | 2019-02-25 11:20 | CT ---
EXAMINATION TYPE: CT brain wo con DATE OF EXAM: 02/25/2019 HISTORY: Weakness, confusion, slurred speech, high fever CT DLP: 1099.4 mGycm. Automated Exposure Control for Dose Reduction was Utilized. TECHNIQUE: CT scan of the head is performed without contrast. COMPARISON: CT brain April 04, 2018. FINDINGS: There is acute subarachnoid hemorrhage filling the left frontal sulcus axial images 32 th rough 43 confirmed on coronal and sagittal images. No midline shift. There do also suspect smaller ad ditional focus of acute subarachnoid hemorrhage right subdural level axial image 39 extending to 41 w here there is new hyperdensity present versus prior exam There is diffuse ventricular and sulcal prom inence consistent with diffuse cerebral atrophy. There is some low-attenuation in the periventricula r white matter consistent with chronic small vessel ischemic change. The globes are intact and the v isualized sinuses are clear. IMPRESSION: New small to moderate acute left frontal subarachnoid hemorrhage and suspected smaller de gree of acute right occipital subarachnoid hemorrhage. No midline shift currently. There is backgrou nd mild diffuse age-related cerebral atrophy and chronic small vessel ischemic change redemonstrated. Results of acute intraparenchymal hemorrhage conveyed to ordering emergency care physician warehouse assistant via telephone at time of dictation.
[2019-02-25 11:23] VITALS: RESP 18
[2019-02-25 11:24] LABS: INR 9.8 (<1.2)
[2019-02-25] MEDS ORDERED: Kcentra PER PHARMACY 1 EACH MISC MISCELLANE PRN (11:27)
[2019-02-25] MEDS ORDERED: PHYTONADIONE 10 MG in SODIUM CHLORIDE 0.9% 50 ML IVPB STA (11:27)
[2019-02-25] MEDS ORDERED: SODIUM CHLORIDE 0.9% 1,000 ML IV ONE (11:28)
--- NOTE | 2019-02-25 11:29 | ED ---
Weakness HPI - General Chief complaint: Weakness Stated complaint: Dehydration/Chest pains Time Seen by Provider: 02/25/19 09:55 Source: patient Mode of arrival: wheelchair Limitations: no limitations - History of Present Illness Initial comments: The patient is a 53-year-old male with past medical history of mechanical aortic valve replacement who presents to the emergency room with fevers and weakness since Monday the . He states that he has had a fever with nasal congestion, ear pain, sore throat and headache. He saw his primary care physician on Monday. He placed him on Augmentin or bronchitis. Patient has been taking the medication twice a day since then. He follow-up in office on Monday for his INR checked was told that his INR was 9. He has not taken his Coumadin since Monday. He continued to feel ill over the weekend. He has been taking Tylenol, Motrin and DayQuil at home for his fevers. Family is at bedside states the patient seems to be slow to respond to questions. They also state they feel as if his speech is slurred. He denies any headaches. Does admit to some slight blurred vision. No loss of peripheral vision. No neck pain or stiffness. Denies any unilateral numbness or weakness. Does admit to intermittent chest pressure. No shortness of breath, cough or hemoptysis. Denies any abdominal pain. Admits that he had decreased frequency of urination. He has been drinking water and feels that his output has been much less than his intake. Denies diarrhea, constipation, melanotic stools or hematochezia. No blunt head trauma. There are no other alleviating, precipitating or modifying factors - Related Data Home Medications Medication Instructions Recorded Confirmed Simvastatin [Zocor] 40 mg PO DAILY 09/27/14 08/06/18 Enalapril Maleate [Vasotec] 5 mg PO DAILY 04/04/18 08/06/18 Warfarin [Coumadin] 10 mg PO DAILY 04/04/18 08/06/18 Insulin NPH Hum/Reg Insulin Hm 7 units SQ HS 08/06/18 08/06/18 [Relion Novolin 70-30 Flexpen] Insulin NPH Hum/Reg Insulin Hm 15 units SQ QAM 08/06/18 08/06/18 [Relion Novolin 70-30 Flexpen] Previous Rx's Medication Instructions Recorded metFORMIN HCL [Glucophage] 1,000 mg PO BID #0 04/05/18 Allergies Allergy/AdvReac Type Severity Reaction Status Date / Time No Known Allergies Allergy Verified 02/25/19 10:01 Review of Systems ROS Statement: Those systems with pertinent positive or pertinent negative responses have been documented in the HPI. ROS Other: All systems not noted in ROS Statement are negative. Past Medical History Past Medical History: Coronary Artery Disease (CAD), Diabetes Mellitus, Eye Disorder, GERD/Reflux, Hyperlipidemia, Hypertension Additional Past Medical History / Comment(s): Recent cold, leaking aortic valve and had prosthetic aortic valve replacement, IDDM type II, bilateral eye injections for leaky vessels behind eye, epistaxix with coumadin use, syncope r/t diabetes. History of Any Multi-Drug Resistant Organisms: None Reported Past Surgical History: Cardiac Valve Replacement Additional Past Surgical History / Comment(s): aortic valve replacement done at [facility]. Past Anesthesia/Blood Transfusion Reactions: No Reported Reaction Past Psychological History: No Psychological Hx Reported Smoking Status: Never smoker Past Alcohol Use History: Occasional Past Drug Use History: None Reported - Past Family History Father Family Medical History: Cancer Additional Family Medical History / Comment(s): Father at the age of 68yrs fromsquamous cell carcinoma. Mother Family Medical History: Cancer Additional Family Medical History / Comment(s): Mother from Ewings sarcoma at the age of 57yrs. General Exam Limitations: no limitations General appearance: alert, in no apparent distress, other (appears tired. a+o x4) Head exam: Present: atraumatic, normocephalic, normal inspection Eye exam: Present: normal appearance, PERRL, EOMI. Absent: scleral icterus, conjunctival injection, periorbital swelling ENT exam: Present: normal exam, mucous membranes moist Neck exam: Present: normal inspection. Absent: tenderness, meningismus, lymphadenopathy Respiratory exam: Present: normal lung sounds bilaterally. Absent: respiratory distress, wheezes, rales, rhonchi, stridor Cardiovascular Exam: Present: regular rate, normal rhythm, normal heart sounds. Absent: systolic murmur, diastolic murmur, rubs, gallop, clicks GI/Abdominal exam: Present: soft, normal bowel sounds. Absent: distended, tenderness, guarding, rebound, rigid Extremities exam: Present: normal inspection, full ROM, normal capillary refill. Absent: tenderness, pedal edema, joint swelling, calf tenderness Back exam: Present: normal inspection Neurological exam: Present: alert, oriented X3, CN II-XII intact Psychiatric exam: Present: normal affect, normal mood Skin exam: Present: warm, intact, normal color, diaphoretic. Absent: rash Course Vital Signs 02/25/19 02/25/19 02/25/19 09:58 10:49 11:21 Temperature 102.4 F H 99.3 F Pulse Rate 111 H 111 H 102 H Respiratory 20 18 18 Rate Blood Pressure 121/72 132/84 112/65 O2 Sat by Pulse 98 93 L 97 Oximetry 02/25/19 02/25/19 02/25/19 12:01 12:21 13:51 Temperature 98.6 F Pulse Rate 97 92 90 Respiratory 18 18 18 Rate Blood Pressure 104/60 104/60 97/64 O2 Sat by Pulse 94 L 94 L 95 Oximetry 02/25/19 13:53 Temperature 98.6 F Pulse Rate 90 Respiratory 18 Rate Blood Pressure 97/64 O2 Sat by Pulse 95 Oximetry EKG Findings - EKG Comments: EKG Findings:: EKG demonstrates a wide complex rhythm with a ventricular rate of 108. No measurable IA interval. QRS 150. IVAN of 490. There is a left bundle branch block present. No Sgarbossa criteria. EKG is compared to previous and is markedly different. Branch is new Medical Decision Making - Medical Decision Making Upon arrival the patient is placed into room 18. A thorough history and physical exam was performed. Peripheral IV is established. He is given a liter bolus of normal saline as well as a dose of Motrin for his fever 102.4. A 12- lead EKG was performed which demonstrates a new left bundle-branch block I did recommend laboratory studies, a CT of the patient's brain because of his reported delayed speech and a chest x-ray. White blood count is 14.2. INR markedly elevated at 9.8. PTT 64. Sodium 134, potassium 3.4. Creatinine elevated at 2. Previous creatinine noted to be 0.7. Glucose elevated at 278. Anion gap 9. Urinalysis shows moderate blood, small leukocyte esterase, 28 red blood cells, 23 white blood cells. Influenza A and B are negative. CT of the patient's brain demonstrates a new [id number] acute left frontal subarachnoid hemorrhage and suspected her degree of acute right occipital subarachnoid hemorrhage. No midline shift currently. Mild diffuse age-related cerebral atrophy and chronic small vessel ischemic disease. I called and discussed the case with Dr. dumont at 11:20 AM because of the patient's abnormal CT. He does recommend a CT angiography of the patient's brain is normal his creatinine 2.0. He recommended that the patient a liter bolus of normal saline prior to imaging. The patient does receive this and sent over for CT angiography. CT angiography of the patient's brain demonstrates no focal aneurysm at the level of the [place] of [place]. Chest x-rays performed and demonstrates basilar atelectasis or scarring. The patient is reevaluated and remains alert and oriented 4. I did provide the patient with another liter of normal saline because of his dehydrated status. I discussed the case once again with Dr. Aleman at 11:50 AM. He is recommending 10 mg of IV vitamin K, half dose of kcenta. I did obtain blood cultures and initiated a dose of Rocephin on the patient. Dr. Dumont would like his blood pressure less than 160 systolic. Last blood pressure recorded to be 104/60 systolic. I discussed the results with the patient as family at bedside. The patient will be transferred to [facility] this is where Dr. dumont is available and is the accepting doctor. The patient will go immediately to the ICU. He was in agreement with the treatment plan and transferred priority one. - Lab Data Result diagrams: 02/25/19 10:30 02/25/19 10:30 Lab Results 02/25/19 02/25/19 02/25/19 Range/Units 10:30 10:30 10:30 WBC 14.2 H (3.8-10.6) k/uL RBC 4.74 (4.30-5.90) m/uL Hgb 13.6 (13.0-17.5) gm/dL Hct 41.3 (39.0-53.0) % MCV 87.1 (80.0-100.0) fL MCH 28.6 (25.0-35.0) pg MCHC 32.9 (31.0-37.0) g/dL RDW 13.1 (11.5-15.5) % Plt Count 396 (150-450) k/uL Neutrophils % 92 % Lymphocytes % 3 % Monocytes % 4 % Eosinophils % 0 % Basophils % 1 % Neutrophils # 13.0 H (1.3-7.7) k/uL Lymphocytes # 0.4 L (1.0-4.8) k/uL Monocytes # 0.5 (0-1.0) k/uL Eosinophils # 0.0 (0-0.7) k/uL Basophils # 0.2 (0-0.2) k/uL PT 103.3 H (9.0-12.0) sec INR 9.8 H* (<1.2) APTT 64.0 H (22.0-30.0) sec Sodium 134 L (137-145) mmol/L Potassium 3.4 L (3.5-5.1) mmol/L Chloride 100 (98-107) mmol/L Carbon Dioxide 25 (22-30) mmol/L Anion Gap 9 mmol/L BUN 39 H (9-20) mg/dL Creatinine 2.07 H (0.66-1.25) mg/dL Est GFR (CKD-EPI)AfAm 42 (>60 ml/min/1.73 sqM) Est GFR (CKD-EPI)NonAf 36 (>60 ml/min/1.73 sqM) Glucose 278 H (74-99) mg/dL POC Glucose (mg/dL) (75-99) mg/dL POC Glu [place] Farmer ID Plasma Lactic Acid Fabricio (0.7-2.0) mmol/L Calcium 8.2 L (8.4-10.2) mg/dL Total Bilirubin 1.1 (0.2-1.3) mg/dL AST 27 (17-59) U/L ALT 21 (4-49) U/L Alkaline Phosphatase 91 (38-126) U/L Creatine Kinase 27 L (55-170) U/L Troponin I (0.000-0.034) ng/mL Total Protein 6.1 L (6.3-8.2) g/dL Albumin 3.0 L (3.5-5.0) g/dL Lipase 21 L (23-300) U/L Urine Color Urine Appearance (Clear) Urine pH (5.0-8.0) Ur Specific Paulina (1.001-1.035) Urine Protein (Negative) Urine Glucose (UA) (Negative) Urine Ketones (Negative) Urine Blood (Negative) Urine Nitrite (Negative) Urine Bilirubin (Negative) Urine Urobilinogen (<2.0) mg/dL Ur Leukocyte Esterase (Negative) Urine RBC (0-5) /hpf Urine WBC (0-5) /hpf Ur Squamous Epith Cells (0-4) /hpf Amorphous Sediment (None) /hpf Hyaline Casts (0-2) /lpf Granular Casts (0) /lpf Urine Mucus (None) /hpf Influenza Type A RNA (Not Detectd) Influenza Type B (PCR) (Not Detectd) 02/25/19 02/25/19 02/25/19 Range/Units 10:30 10:30 10:30 WBC (3.8-10.6) k/uL RBC (4.30-5.90) m/uL Hgb (13.0-17.5) gm/dL Hct (39.0-53.0) % MCV (80.0-100.0) fL MCH (25.0-35.0) pg MCHC (31.0-37.0) g/dL RDW (11.5-15.5) % Plt Count (150-450) k/uL Neutrophils % % Lymphocytes % % Monocytes % % Eosinophils % % Basophils % % Neutrophils # (1.3-7.7) k/uL Lymphocytes # (1.0-4.8) k/uL Monocytes # (0-1.0) k/uL Eosinophils # (0-0.7) k/uL Basophils # (0-0.2) k/uL PT (9.0-12.0) sec INR (<1.2) APTT (22.0-30.0) sec Sodium (137-145) mmol/L Potassium (3.5-5.1) mmol/L Chloride (98-107) mmol/L Carbon Dioxide (22-30) mmol/L Anion Gap mmol/L BUN (9-20) mg/dL Creatinine (0.66-1.25) mg/dL Est GFR (CKD-EPI)AfAm (>60 ml/min/1.73 sqM) Est GFR (CKD-EPI)NonAf (>60 ml/min/1.73 sqM) Glucose (74-99) mg/dL POC Glucose (mg/dL) (75-99) mg/dL POC Glu [place] Farmer ID Plasma Lactic Acid Fabricio (0.7-2.0) mmol/L Calcium (8.4-10.2) mg/dL Total Bilirubin (0.2-1.3) mg/dL AST (17-59) U/L ALT (4-49) U/L Alkaline Phosphatase (38-126) U/L Creatine Kinase (55-170) U/L Troponin I 0.033 (0.000-0.034) ng/mL Total Protein (6.3-8.2) g/dL Albumin (3.5-5.0) g/dL Lipase (23-300) U/L Urine Color Yellow Urine Appearance Turbid (Clear) Urine pH 5.5 (5.0-8.0) Ur Specific Paulina 1.018 (1.001-1.035) Urine Protein 2+ H (Negative) Urine Glucose (UA) 1+ H (Negative) Urine Ketones Negative (Negative) Urine Blood Moderate H (Negative) Urine Nitrite Negative (Negative) Urine Bilirubin Negative (Negative) Urine Urobilinogen <2.0 (<2.0) mg/dL Ur Leukocyte Esterase Small H (Negative) Urine RBC 28 H (0-5) /hpf Urine WBC 23 H (0-5) /hpf Ur Squamous Epith Cells 1 (0-4) /hpf Amorphous Sediment Occasional H (None) /hpf Hyaline Casts 13 H (0-2) /lpf Granular Casts 26 (0) /lpf Urine Mucus Rare H (None) /hpf Influenza Type A RNA Not Detected (Not Detectd) Influenza Type B (PCR) Not Detected (Not Detectd) 02/25/19 02/25/19 Range/Units 10:30 12:14 WBC (3.8-10.6) k/uL RBC (4.30-5.90) m/uL Hgb (13.0-17.5) gm/dL Hct (39.0-53.0) % MCV (80.0-100.0) fL MCH (25.0-35.0) pg MCHC (31.0-37.0) g/dL RDW (11.5-15.5) % Plt Count (150-450) k/uL Neutrophils % % Lymphocytes % % Monocytes % % Eosinophils % % Basophils % % Neutrophils # (1.3-7.7) k/uL Lymphocytes # (1.0-4.8) k/uL Monocytes # (0-1.0) k/uL Eosinophils # (0-0.7) k/uL Basophils # (0-0.2) k/uL PT (9.0-12.0) sec INR (<1.2) APTT (22.0-30.0) sec Sodium (137-145) mmol/L Potassium (3.5-5.1) mmol/L Chloride (98-107) mmol/L Carbon Dioxide (22-30) mmol/L Anion Gap mmol/L BUN (9-20) mg/dL Creatinine (0.66-1.25) mg/dL Est GFR (CKD-EPI)AfAm (>60 ml/min/1.73 sqM) Est GFR (CKD-EPI)NonAf (>60 ml/min/1.73 sqM) Glucose (74-99) mg/dL POC Glucose (mg/dL) 239 H (75-99) mg/dL POC Glu [place] Farmer Jose Maria Wynn Plasma Lactic Acid Fabricio 1.5 (0.7-2.0) mmol/L Calcium (8.4-10.2) mg/dL Total Bilirubin (0.2-1.3) mg/dL AST (17-59) U/L ALT (4-49) U/L Alkaline Phosphatase (38-126) U/L Creatine Kinase (55-170) U/L Troponin I (0.000-0.034) ng/mL Total Protein (6.3-8.2) g/dL Albumin (3.5-5.0) g/dL Lipase (23-300) U/L Urine Color Urine Appearance (Clear) Urine pH (5.0-8.0) Ur Specific Paulina (1.001-1.035) Urine Protein (Negative) Urine Glucose (UA) (Negative) Urine Ketones (Negative) Urine Blood (Negative) Urine Nitrite (Negative) Urine Bilirubin (Negative) Urine Urobilinogen (<2.0) mg/dL Ur Leukocyte Esterase (Negative) Urine RBC (0-5) /hpf Urine WBC (0-5) /hpf Ur Squamous Epith Cells (0-4) /hpf Amorphous Sediment (None) /hpf Hyaline Casts (0-2) /lpf Granular Casts (0) /lpf Urine Mucus (None) /hpf Influenza Type A RNA (Not Detectd) Influenza Type B (PCR) (Not Detectd) Critical Care Time Critical Care Time: Yes Total Critical Care Time: 50 (minutes) Disposition Clinical Impression: SAH (subarachnoid hemorrhage), Supratherapeutic INR, Altered mental status, Fever Disposition: OTHER INSTITUTION NOT DEFINED Condition: Serious Is patient prescribed a controlled substance at d/c from ED?: No Referrals: Bogdan uW DO [Primary Care Provider] - 1-2 days Time of Disposition: 12:32 - Out of Hospital Transfer - Req. Specs Out of Hospital Transfer - Requested Specifics: Neurological ICU ([facility])
--- NOTE | 2019-02-25 11:30 | XR ---
EXAMINATION TYPE: XR chest 2V DATE OF EXAM: 02/25/2019 COMPARISON: Prior chest 04/04/2018 HISTORY: Weakness, chest pain TECHNIQUE: Frontal and lateral views of the chest are obtained. FINDINGS: Patient is status post median sternotomy, cardiac valve replacement. Surgical clips present in the right axilla as on prior. Some patchy density present at the left costophrenic angle. No evid ent pneumothorax or pleural effusion. Heart size is stable. There are overlying cardiac leads. IMPRESSION: There may be some basilar atelectasis or scarring. Follow-up as indicated.
[2019-02-25] MEDS ORDERED: HUMAN PROTHROMBIN COMPLX IV ONE ×2 (11:45→12:00)
--- NOTE | 2019-02-25 12:10 | CT ---
EXAMINATION TYPE: CT angio head neck DATE OF EXAM: 02/25/2019 HISTORY: Subarachnoid hemorrhage, abnormal CT. COMPARISON: NONE CT DLP: 476.8 mGycm. Automated Exposure Control for Dose Reduction was Utilized. TECHNIQUE: CTA scan of the head and neck are performed with IV Contrast, patient injected with 65 mL of Isovue 370, axial images are obtained, coronal and sagittal reformatted images are reviewed. Thre e-D reconstructed images are created on an independent workstation and reviewed. FINDINGS: Carotid/Vascular Structures: The vessel origin from aortic arch. Normal origin right common carotid a rtery from right brachiocephalic artery. No significant plaque or stenosis in right common or interna l carotid arteries along with external carotid arteries bilaterally. There is small caliber left vertebral artery which is occluded or stenotic distally. Right vertebral artery is dominant forming the basilar artery. There hypoplastic bilateral posterior communicating ar teries. No significant focal stenosis or aneurysmal change in the posterior circulation. Images in th e anterior circulation show no obvious aneurysm. No focal stenosis is present. Other: Acute subarachnoid hemorrhage filling left frontal sulcus have axial image 38 is redemonstrate d. Partial visualization of sternal wires in the upper thorax. IMPRESSION: No focal aneurysm at level of false [place] of [place] clearly seen.
[2019-02-25 12:15] LABS: Glucose,Whole Blood 239 mg/dL (75-99)
[2019-02-25 13:53] VITALS: BP 97/64; PULSE 90; TEMP 98.6
== END 2019-02-25 13:56 | disposition short-term general hospital (02) ==
LOC: EC 09:53
DX: I60.9 Nontraumatic subarachnoid hemorrhage, unspecified (principal); R79.1 Abnormal coagulation profile; R50.9 Fever, unspecified; I44.7 Left bundle-branch block, unspecified; R79.89 Other specified abnormal findings of blood chemistry; E11.65 Type 2 diabetes mellitus with hyperglycemia; R31.9 Hematuria, unspecified; R82.998 Other abnormal findings in urine; R82.81 Pyuria; G31.9 Degenerative disease of nervous system, unspecified; I67.82 Cerebral ischemia; R91.8 Other nonspecific abnormal finding of lung field; E86.0 Dehydration; J40 Bronchitis, not specified as acute or chronic; J02.9 Acute pharyngitis, unspecified; I25.10 Atherosclerotic heart disease of native coronary artery without angina pectoris; E78.5 Hyperlipidemia, unspecified; I10 Essential (primary) hypertension; Z79.4 Long term (current) use of insulin; Z79.01 Long term (current) use of anticoagulants; Z79.899 Other long term (current) drug therapy; Z95.2 Presence of prosthetic heart valve
CPT/HCPCS: 99291 ×2; 96365 ×4; 96375 ×2; 36415; 93005; 80053; 82550; 83605; 83690; 84484; 85025; 85610; 85730; 81001; 87040; 87086; 87077; 87186; 87502; 71046; 70496; 70450; 70498; J3430; J0696; C9132; Q9967

== ENCOUNTER 2019-04-21 15:13 | Inpatient (IN) | payer OTHER ==
[2019-04-21 16:12] LABS: Basophils % (A) 1 %; Eosinophils # (A) 0.3 k/uL (0-0.7); Eosinophils % (A) 5 %; HCT 27.3 % (39.0-53.0); HGB 8.7 gm/dL (13.0-17.5); Lymphocytes # (A) 0.7 k/uL (1.0-4.8); Lymphocytes % (A) 14 %; MCH 29.2 pg (25.0-35.0); MCHC 31.8 g/dL (31.0-37.0); MCV 91.6 fL (80.0-100.0); Mean Platelet Volume 7.3; Monocytes # (A) 0.3 k/uL (0-1.0); Monocytes % (A) 6 %; Neutrophils # (A) 3.6 k/uL (1.3-7.7); Neutrophils % (A) 72 %; Platelet Count 370 k/uL (150-450); RBC 2.98 m/uL (4.30-5.90); RDW 15.4 % (11.5-15.5)
[2019-04-21 16:16] LABS: Albumin 3.9 g/dL (3.5-5.0); Calcium 9.4 mg/dL (8.4-10.2); Magnesium 1.7 mg/dL (1.6-2.3); Potassium 5.2 mmol/L (3.5-5.1); Total Bilirubin 1.2 mg/dL (0.2-1.3); Total Protein 7.8 g/dL (6.3-8.2)
[2019-04-21 16:17] LABS: INR 1.2 (<1.2); Partial Thromboplastin Time 24.7 sec (22.0-30.0); Prothrombin Time 11.9 sec (9.0-12.0)
--- NOTE | 2019-04-21 16:22 | CT ---
EXAMINATION TYPE: CT brain wo con DATE OF EXAM: 04/21/2019 COMPARISON: 02/25/2019 HISTORY: possible seizure CT DLP: 1182.4 mGycm Automated exposure control for dose reduction was used. FINDINGS: There is generalized moderate degenerative change of the slightly greater central component. No acute hemorrhage or mass effect. Abnormal signal in the head of the caudate nucleus is compatible with a t iny remote lacunar infarct. Faint low-attenuation the white matter is nonspecific but most typical re mote ischemic change. IMPRESSION: DEGENERATIVE AND REMOTE ISCHEMIC CHANGE. SLIGHTLY GREATER CENTRAL COMPONENT CAN BE SEEN WITH NORMAL P RESSURE HYDROCEPHALUS. CORRELATE CLINICALLY
--- NOTE | 2019-04-21 16:25 | XR ---
EXAMINATION TYPE: XR chest 2V DATE OF EXAM: 04/21/2019 COMPARISON: 02/25/2019 TECHNIQUE: PA and lateral views submitted. HISTORY: Chest pain and seizure FINDINGS: Lungs are clear. Cardiac device noted.. Postsurgical changes are seen in the axilla and overlying the mediastinum. No pneumothorax or overt failure. IMPRESSION: 1. No acute process.
[2019-04-21] MEDS ORDERED: levETIRAcetam IV 1,000 MG in SALINE 1 100ML.BAG IVPB STA (17:20)
[2019-04-21] MEDS ORDERED: NALOXONE 0.4 MG/ML 1 ML VIAL IV PRN (17:26)
--- NOTE | 2019-04-21 17:26 | ED ---
General Adult HPI - General Chief complaint: Seizure Stated complaint: seizure Time Seen by Provider: 04/21/19 15:15 Source: patient Mode of arrival: ambulatory Limitations: no limitations - History of Present Illness Initial comments: The patient is a 53-year-old male with past medical history of aortic valve replacement, hypertension and hyperlipidemia who presents to the emergency room with reported new onset seizure-like activity. The patient has had a recent complicated medical course. He was seen here in February after he was being treated by his primary care physician for an upper respiratory infection. He is placed on antibiotics. When he came into the hospital he had a high fever which was found to be secondary to endocarditis. The patient's Coumadin was extremely elevated which caused a subarachnoid hemorrhage. At that time he was sent to [facility]. Because of the endocarditis of the mechanical valve the patient was transferred to [facility]. This is where he had open heart surgery to remove his mechanical valve in place it with a bovine valve. The patient also had a pacemaker placed. States that he went to rehab and the patient was just recently discharged from the hospital earlier this month. He states that he has been feeling well at home. Taking all his medications as directed. He was at his house today with his girlfriend when he had new onset seizure-like activity. States he's never had a seizure before. Does not take any medications for seizure prophylaxis. The patient reports that he felt as if his hands became stiff and then woke up to EMS at his house. Reportedly he had tonic-clonic shaking which lasted 2 minutes. He was then confused after the episode. He did not bite his tongue. There is no bowel or bladder incontinence. The patient denies any recent head trauma. States that he is still on Coumadin however at a lower dose because of this history of subarachnoid. He denies any headaches or visual changes. No neck pain or stiffness. Denies any fevers. No difficulties with ambulation or balance. Denies vertiginous symptoms. No facial droop or confused speech. The patient denies having any chest pain or shortness of breath prior to the incident. There are no alleviating, precipitating or modifying factors - Related Data Home Medications Medication Instructions Recorded Confirmed Warfarin [Coumadin] 7.5 mg PO DAILY@2100 04/04/18 04/21/19 Acetaminophen [Tylenol] 325 mg PO Q6H PRN 04/21/19 04/21/19 Amiodarone [Cordarone] 200 mg PO DAILY@0900 04/21/19 04/21/19 Aspirin EC [Ecotrin Low Dose] 81 mg PO DAILY@0900 04/21/19 04/21/19 Atorvastatin [Lipitor] 20 mg PO HS@209904/21/19 04/21/19 Bumetanide 4 mg PO DAILY@0900 04/21/19 04/21/19 Carvedilol 25 mg PO BID@0900,209904/21/19 04/21/19 Ferrous Sulfate [Iron] 325 mg PO BID@0900,209904/21/19 04/21/19 Folic Acid-Vit B Complex-Vit C 1 mg PO DAILY@1700 04/21/19 04/21/19 [Nephrocaps] INSULIN LISPRO (HumaLOG) [humaLOG] See Protocol SQ AC-BRKFST 04/21/19 04/21/19 INSULIN LISPRO (HumaLOG) [humaLOG] See Protocol SQ HS 04/21/19 04/21/19 Isradipine 10 mg PO BID@0900,209904/21/19 04/21/19 Magnesium Oxide [Mag-Ox] 400 mg PO BID@0900,209904/21/19 04/21/19 Potassium Chloride ER [K-Dur 20] 20 meq PO DAILY@0900 04/21/19 04/21/19 Tamsulosin [Flomax] 0.4 mg PO DAILY@0900 04/21/19 04/21/19 hydrALAZINE HCL 25 mg PO DAILY@1400 04/21/19 04/21/19 hydrALAZINE HCL 50 mg PO BID@0600,2200 04/21/19 04/21/19 Allergies Allergy/AdvReac Type Severity Reaction Status Date / Time No Known Allergies Allergy Verified 04/21/19 17:35 Review of Systems ROS Statement: Those systems with pertinent positive or pertinent negative responses have been documented in the HPI. ROS Other: All systems not noted in ROS Statement are negative. Past Medical History Past Medical History: Coronary Artery Disease (CAD), Diabetes Mellitus, Eye Disorder, GERD/Reflux, Hyperlipidemia, Hypertension Additional Past Medical History / Comment(s): Recent cold, leaking aortic valve and had prosthetic aortic valve replacement, IDDM type II, bilateral eye injections for leaky vessels behind eye, epistaxix with coumadin use, syncope r/t diabetes. 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 Mother Family Medical History: Cancer Additional Family Medical History / Comment(s): Mother from Ewings sarcoma at the age of 57yrs. General Exam Limitations: no limitations General appearance: alert, in no apparent distress Head exam: Present: atraumatic, normocephalic, normal inspection Eye exam: Present: normal appearance, PERRL, EOMI. Absent: scleral icterus, conjunctival injection, periorbital swelling ENT exam: Present: normal exam, mucous membranes moist Neck exam: Present: normal inspection. Absent: tenderness, meningismus, lymphadenopathy Respiratory exam: Present: normal lung sounds bilaterally. Absent: respiratory distress, wheezes, rales, rhonchi, stridor Cardiovascular Exam: Present: regular rate, normal rhythm, normal heart sounds. Absent: systolic murmur, diastolic murmur, rubs, gallop, clicks GI/Abdominal exam: Present: soft, normal bowel sounds. Absent: distended, tenderness, guarding, rebound, rigid Extremities exam: Present: normal inspection, full ROM, normal capillary refill. Absent: tenderness, pedal edema, joint swelling, calf tenderness Back exam: Present: normal inspection Neurological exam: Present: alert, oriented X3, CN II-XII intact Psychiatric exam: Present: normal affect, normal mood Skin exam: Present: warm, dry, intact, normal color. Absent: rash Course Vital Signs 04/21/19 04/21/19 04/21/19 15:14 15:16 15:30 Temperature 98.3 F Pulse Rate 84 85 82 Respiratory 18 13 14 Rate Blood Pressure 176/101 176/101 O2 Sat by Pulse 99 Oximetry 04/21/19 04/21/1920 16:00 16:30 17:00 Temperature Pulse Rate 77 78 74 Respiratory 14 14 8 L Rate Blood Pressure 166/94 146/88 159/90 O2 Sat by Pulse 92 L Oximetry 04/21/19 04/21/19 04/21/19 17:30 18:00 18:09 Temperature Pulse Rate 79 77 77 Respiratory 18 Rate Blood Pressure 168/96 165/96 165/96 O2 Sat by Pulse 96 98 98 Oximetry EKG Findings - EKG Comments: EKG Findings:: EKG demonstrates an electronic pacemaker. Rate of 85. NM interval 258. QRS 158. QTC of 516. Pacemaker captures appropriately. There is an inverted T-wave with some ST depression in lead 3. No acute ST segment elevations. Medical Decision Making - Medical Decision Making Upon arrival the patient was probably placed into room 2. A thorough history and physical exam was performed. Peripheral IV had been established by EMS. Laboratory studies were conducted. A 12-lead EKG was performed which demonstrates a paced rhythm which captures appropriately. We did interrogate the patient's device. He went over for a CT of his head and a chest x-ray. Laboratory studies are somewhat abnormal however they are improved from the patient's previous values. Hemoglobin is 8.7. INR is subtherapeutic at 1.2. Sodium 135. Creatinine is 2.7. Glucose 298. Magnesium mildly low at 1.7. BNP 6600. Troponin 0.012. CT brain demonstrates degenerative and remote ischemic change. Slightly greater central component can be seen with normal pressures hydrocephalus. Chest x-ray demonstrates no acute process. I discussed results of the patient. Because of his recent complicated course I did recommend hospital admission for which the patient did agree to. [employer] report demonstrates no reported episodes. No VT, atrial tach or atrial flutter. Report is included on the patient's chart At 535 I did discuss the case with Dr. Scanlon. He is the on-call neurointensivist. He does recommend ordering an EEG and loading the patient with a gram of Keppra. I discussed the case with Dr. Nelson who accepted admission for the patient - Lab Data Result diagrams: 04/22/19 06:31 04/22/19 04:15 Lab Results 04/21/19 04/21/19 04/21/19 Range/Units 15:54 15:54 15:54 WBC 5.0 (3.8-10.6) k/uL RBC 2.98 L (4.30-5.90) m/uL Hgb 8.7 L (13.0-17.5) gm/dL Hct 27.3 L (39.0-53.0) % MCV 91.6 (80.0-100.0) fL MCH 29.2 (25.0-35.0) pg MCHC 31.8 (31.0-37.0) g/dL RDW 15.4 (11.5-15.5) % Plt Count 370 (150-450) k/uL Neutrophils % 72 % Lymphocytes % 14 % Monocytes % 6 % Eosinophils % 5 % Basophils % 1 % Neutrophils # 3.6 (1.3-7.7) k/uL Lymphocytes # 0.7 L (1.0-4.8) k/uL Monocytes # 0.3 (0-1.0) k/uL Eosinophils # 0.3 (0-0.7) k/uL Basophils # 0.0 (0-0.2) k/uL PT 11.9 (9.0-12.0) sec INR 1.2 H (<1.2) APTT 24.7 (22.0-30.0) sec Sodium 135 L (137-145) mmol/L Potassium 5.2 H (3.5-5.1) mmol/L Chloride 100 (98-107) mmol/L Carbon Dioxide 21 L (22-30) mmol/L Anion Gap 14 mmol/L BUN 28 H (9-20) mg/dL Creatinine 2.77 H (0.66-1.25) mg/dL Est GFR (CKD-EPI)AfAm 29 (>60 ml/min/1.73 sqM) Est GFR (CKD-EPI)NonAf 25 (>60 ml/min/1.73 sqM) Glucose 298 H (74-99) mg/dL Calcium 9.4 (8.4-10.2) mg/dL Magnesium 1.7 (1.6-2.3) mg/dL Total Bilirubin 1.2 (0.2-1.3) mg/dL AST 20 (17-59) U/L ALT 13 (4-49) U/L Alkaline Phosphatase 109 (38-126) U/L Creatine Kinase 61 (55-170) U/L Troponin I (0.000-0.034) ng/mL NT-Pro-B Natriuret Pep pg/mL Total Protein 7.8 (6.3-8.2) g/dL Albumin 3.9 (3.5-5.0) g/dL 04/21/19 04/21/19 Range/Units 15:54 15:54 WBC (3.8-10.6) k/uL RBC (4.30-5.90) m/uL Hgb (13.0-17.5) gm/dL Hct (39.0-53.0) % MCV (80.0-100.0) fL MCH (25.0-35.0) pg MCHC (31.0-37.0) g/dL RDW (11.5-15.5) % Plt Count (150-450) k/uL Neutrophils % % Lymphocytes % % Monocytes % % Eosinophils % % Basophils % % Neutrophils # (1.3-7.7) k/uL Lymphocytes # (1.0-4.8) k/uL Monocytes # (0-1.0) k/uL Eosinophils # (0-0.7) k/uL Basophils # (0-0.2) k/uL PT (9.0-12.0) sec INR (<1.2) APTT (22.0-30.0) sec Sodium (137-145) mmol/L Potassium (3.5-5.1) mmol/L Chloride (98-107) mmol/L Carbon Dioxide (22-30) mmol/L Anion Gap mmol/L BUN (9-20) mg/dL Creatinine (0.66-1.25) mg/dL Est GFR (CKD-EPI)AfAm (>60 ml/min/1.73 sqM) Est GFR (CKD-EPI)NonAf (>60 ml/min/1.73 sqM) Glucose (74-99) mg/dL Calcium (8.4-10.2) mg/dL Magnesium (1.6-2.3) mg/dL Total Bilirubin (0.2-1.3) mg/dL AST (17-59) U/L ALT (4-49) U/L Alkaline Phosphatase (38-126) U/L Creatine Kinase (55-170) U/L Troponin I 0.012 (0.000-0.034) ng/mL NT-Pro-B Natriuret Pep 6600 pg/mL Total Protein (6.3-8.2) g/dL Albumin (3.5-5.0) g/dL Disposition Clinical Impression: New onset seizure Disposition: ADMITTED IP TO THIS [facility] Condition: Stable Is patient prescribed a controlled substance at d/c from ED?: No Decision to Admit Reason: Admit from EC Decision Date: 04/21/19 Decision Time: 17:26
[2019-04-21] MEDS ORDERED: ACETAMINOPHEN TAB 325 MG TAB PO PRN (18:44)
[2019-04-21] MEDS ORDERED: HYDROmorphone 0.5 MG/0.5 ML SYRINGE IVP PRN (18:46)
[2019-04-21] MEDS ORDERED: LORazepam 2 MG/ML INJ IV PRN (18:46)
[2019-04-21 20:14] LABS: Glucose,Whole Blood 290 mg/dL (75-99)
--- NOTE | 2019-04-21 20:45 | HP ---
HISTORY AND PHYSICAL CHIEF COMPLAINTS: Seizure disorder. HISTORY OF PRESENT ILLNESS: This 53-year-old gentleman being followed by Dr. Wu in the outpatient setting with a past medical history of multiple medical problems including CAD, history of diabetes, GERD, hypertension, hyperlipidemia, and diabetes had previously aortic valve replacement which is mechanical valve for aortic regurgitation apparently. The patient presented to [facility] Emergency Room a few weeks ago in February after upper respiratory infection. She had some antibiotic during that time. Patient also had some fevers. Subsequently, the patient was found to have subarachnoid hemorrhage and the patient transferred to [facility] and on the course of workup endocarditis was found out and the patient referred to [facility] from [place] where the patient had open heart surgery to remove the mechanical valve and placed with a bovine valve apparently. The patient also had a pacemaker placed and the patient was in the rehab and recently discharged. The patient was at home with his girlfriend today and the patient apparently was sitting in a chair and the patient had tonic clonic seizures and the patient had frothing in the mouth which lasted for 5 minutes and the patient was confused after the episode. The patient taken to [facility] and admitted to the hospital for further evaluation and treatment. A CT scan showed some dilated ventricles and some cerebral atrophy, which is comparable to the CT scan in December. The ER physician is contacting the patient's neurologist and the patient will be admitted for further evaluation and treatment. Currently the patient is conscious, able to give a coherent history. The patient did not have any previous history of seizures. No chest pain. No palpitations. No headache, loss of consciousness or seizures. A [employer] interrogation was done with a pacemaker, which showed no significant cardiac arrhythmia at this time. The patient apparently had some retinal edema and also had some injections from Dr. Roman's office recently. PAST MEDICAL HISTORY: History of previous aortic valve replacement at [facility] and now replacement at [facility] with a bovine valve. History of recent endocarditis, CAD, diabetes type 2, recent subarachnoid hemorrhage. MEDICATIONS: Home medications are: 1. Coumadin 7.5 mg p.o. daily. 2. Flomax 0.4 daily. 3. K-Dur 20 mEq p.o. daily. 4. Magnesium oxide 400 b.i.d. 6. NovoLog scale. 7. Hydralazine 25 mg daily, 50 mg p.o. b.i.d. 8. Iron 320 mg p.o. b.i.d. 9. Coreg 25 mg p.o. b.i.d. 10.Bumex 4 mg p.o. daily. 11.Nephrocaps 1 mg p.o. daily. 12.Lipitor 20 mg p.o. q.h.s. 13.Ecotrin 81 mg p.o. daily. 14.Cordarone 200 mg p.o. daily. 15.Tylenol 320 mg q.6h p.r.n. ALLERGIES: None. FAMILY HISTORY: History of squamous cell carcinoma in father. SOCIAL HISTORY: No history of smoking. Occasional alcohol intake. REVIEW OF SYSTEMS: ENT mentioned earlier. CARDIOVASCULAR: No angina or palpitations. Otherwise as mentioned earlier. RESPIRATIONS: No cough or hemoptysis. GI no nausea or vomiting. no dysuria or hematuria. NERVOUS SYSTEM: As mentioned earlier. ALLERGIES/IMMUNOLOGY: No asthma or hayfever. MUSCULOSKELETAL as mentioned earlier. HEMATOLOGY/ONCOLOGY: No history of anemia. ENDOCRINE: History of diabetes. No hypothyroidism. CONSTITUTIONAL: As mentioned earlier. DERMATOLOGY: Negative. RHEUMATOLOGY: Negative. PSYCHIATRY: As mentioned earlier. PHYSICAL EXAMINATION: Alert and oriented x3. Pulse is 77. Blood pressure 160/90, respirations 18, temperature 98.3, pulse ox 98% on room air. HEENT: Conjunctivae normal. Oral mucosa moist. NECK is no jugular venous distention. No carotid bruit. No lymph node enlargement. CARDIOVASCULAR: Ejection systolic murmur status post open heart surgery. RESPIRATIONS: Breath sounds diminished in the bases. A few scattered rhonchi and crackles. ABDOMEN: Soft, nontender. No mass palpable. LEGS: No edema. No swelling. NERVOUS SYSTEM: Higher functions as mentioned earlier. Cranial nerves no focal motor or sensory deficits. LYMPHATICS: No lymph nodes palpable in the neck, axillae or groin. SKIN: No ulcer, no rashes and no bleeding. JOINTS no active deforming arthropathy. No neck stiffness. LAB STUDIES: WBC 5, hemoglobin is 8.7, INR 1.7, sodium 130, potassium 5.2, creatinine 2.77. ASSESSMENT: 1. Acute tonic-clonic seizures, new onset of undetermined etiology. 2. History of recent aortic valve endocarditis and replacement of the aortic prosthetic valve with a bovine valve at [facility]. 3. History of recent subarachnoid hemorrhage. 4. Rule out normal-pressure hydrocephalus. 5. Hyponatremia. 6. Mild hyperkalemia. 7. Renal failure acute, possibly acute tubular necrosis, prerenal factors. 8. Diabetes mellitus type 2. 9. Anemia, normocytic anemia of chronic disease. 10.History of coronary artery disease. 11.History of recent eye injection. 12.History of gastroesophageal reflux disease. 13.Hypertension. 14.Hyperlipidemia. 15.History of aortic regurgitation previously. 16.History of epistaxis with Coumadin usage. RECOMMENDATIONS AND DISCUSSION: This 53-year-old gentleman who presented with multiple complex medical issues, we will monitor the patient closely. Continue current management. We will resume the home medications. I would also recommend Keppra loading and as well as continue to monitor neuro checks. Seizure precautions. Neurology consultation. I would also recommend Cardiology consultation because of above mentioned medical issues. We will increase the dose of hydralazine. We will continue to monitor. I will add Norvasc to the current regimen. Closely monitor the PT/INR. Prognosis guarded because of multiple complex medical issues. A copy of dictation being forwarded to Dr. Wu who is the primary physician. Further recommendations to follow. The patient also had recent onset kidney failure, exact etiology unknown at this time. We will continue to monitor as well. Nephrology will be consulted. UA with micro also sought. Discussed with family who understands and agrees. ARPITA / BETTYN: [id number] / TONO
[2019-04-21] MEDS: FERROUS SULFATE 325 MG TAB PO SCH (21:36)
[2019-04-21] MEDS: hydrALAZINE HCL 50 MG TAB PO SCH (21:36)
[2019-04-21] MEDS: CARVEDILOL 12.5 MG TAB PO SCH (21:36)
[2019-04-21] MEDS: MAGNESIUM OXIDE 400 MG TAB PO SCH (21:36)
[2019-04-21] MEDS: ATORVASTATIN 20 MG TAB PO SCH (21:36)
[2019-04-21] MEDS: WARFARIN 7.5 MG TAB PO SCH (21:37)
[2019-04-21] MEDS ORDERED: hydrALAZINE HCL 25 MG TAB PO SCH (22:00)
[2019-04-22] MEDS: amLODIPine 10 MG TAB PO SCH ×2 (00:08→08:30)
[2019-04-22 04:34] LABS: INR 1.2 (<1.2); Prothrombin Time 12.4 sec (9.0-12.0)
[2019-04-22 04:36] LABS: Basophils % (A) 1 %; Eosinophils # (A) 0.2 k/uL (0-0.7); Eosinophils % (A) 5 %; HCT 22.6 % (39.0-53.0); HGB 7.1 gm/dL (13.0-17.5); Lymphocytes # (A) 0.9 k/uL (1.0-4.8); Lymphocytes % (A) 21 %; MCH 29.1 pg (25.0-35.0); MCHC 31.6 g/dL (31.0-37.0); MCV 92.2 fL (80.0-100.0); Mean Platelet Volume 7.1; Monocytes # (A) 0.4 k/uL (0-1.0); Monocytes % (A) 8 %; Neutrophils # (A) 2.8 k/uL (1.3-7.7); Neutrophils % (A) 63 %; Platelet Count 335 k/uL (150-450); RBC 2.45 m/uL (4.30-5.90); RDW 15.5 % (11.5-15.5); WBC 4.5 k/uL (3.8-10.6)
[2019-04-22 04:39] LABS: Potassium 4.3 mmol/L (3.5-5.1)
[2019-04-22 06:05] LABS: Glucose,Whole Blood 245 mg/dL (75-99)
[2019-04-22] MEDS: INSULIN ASPART (NovoLOG) 100 UNIT/ML VIAL SQ SCH ×4 (06:18→21:28)
[2019-04-22] MEDS: PANTOPRAZOLE 40 MG TABLET PO SCH (06:18)
[2019-04-22 06:42] LABS: Appearance,Urine Clear (Clear); Bilirubin,Urine Negative (Negative); Blood,Urine Negative (Negative); Color,Urine Light Yellow; Glucose,Urine (UA) 3+ (Negative); Ketones,Urine Negative (Negative); Leukocyte Esterase,Urine Negative (Negative); Nitrite,Urine Negative (Negative); PH, Urine 6.5 (5.0-8.0); Protein,Urine Trace (Negative); Urobilinogen,Urine <2.0 mg/dL (<2.0)
[2019-04-22 07:00] LABS: Amphetamine Screen,Urine Not Detected (NotDetected); Barbiturate Screen,Urine Not Detected (NotDetected); Benzodiazepines Screen,Urine Not Detected (NotDetected); Cocaine Screen,Urine Not Detected (NotDetected); Methadone Screen, Urine Not Detected (NotDetected); Opiate Screen,Urine Not Detected (NotDetected); Oxycodone Screen, Urine Not Detected (NotDetected); Phencyclidine Screen,Urine Not Detected (NotDetected); Tricyclic Antidepressant,Urine Not Detected (NotDetected); Urn Cannabinoid Scrn Not Detected (NotDetected)
[2019-04-22 07:08] LABS: HCT 23.7 % (39.0-53.0); HGB 7.4 gm/dL (13.0-17.5); MCH 28.7 pg (25.0-35.0); MCHC 31.1 g/dL (31.0-37.0); MCV 92.3 fL (80.0-100.0); Mean Platelet Volume 7.1; Platelet Count 359 k/uL (150-450); RBC 2.56 m/uL (4.30-5.90); RDW 15.4 % (11.5-15.5); WBC 4.6 k/uL (3.8-10.6)
[2019-04-22] MEDS ORDERED: levETIRAcetam IV 1,000 MG in SALINE 1 100ML.BAG IVPB SCH (08:00)
[2019-04-22] MEDS: POTASSIUM CHLORIDE ER 20 MEQ TAB.ER PO SCH (08:29)
[2019-04-22] MEDS: levETIRAcetam IV 1,000 MG in SALINE 1 100ML.BAG IVPB SCH ×2 (08:29→21:14)
[2019-04-22] MEDS: TAMSULOSIN 0.4 MG CAP.ER.24H PO SCH (08:29)
[2019-04-22] MEDS: hydrALAZINE HCL 50 MG TAB PO SCH ×3 (08:29→21:26)
[2019-04-22] MEDS: AMIODARONE 200 MG TAB PO SCH (08:30)
[2019-04-22] MEDS: CARVEDILOL 12.5 MG TAB PO SCH ×2 (08:30→21:26)
[2019-04-22] MEDS: ASPIRIN 81 MG PO SCH (08:30)
[2019-04-22] MEDS: BUMETANIDE 1 MG TAB PO SCH (08:30)
[2019-04-22] MEDS: FERROUS SULFATE 325 MG TAB PO SCH ×2 (08:30→21:26)
[2019-04-22] MEDS: MAGNESIUM OXIDE 400 MG TAB PO SCH ×2 (08:30→21:27)
--- NOTE | 2019-04-22 08:51 | P.CRDCN ---
History of Present Illness Consult date: 04/22/19 Requesting physician: Jolly Nelson Chief complaint: Seizures History of present illness: This is a 53-year-old gentleman who follows with Dr. Hogue as his primary care doctor. He has a significant past medical history, history of diabetes, GERD, hypertension, hyperlipidemia, diabetes, history of aortic valve replacement, in February he presented to the hospital with a respiratory infection with associated fever. He was found to have a subarachnoid hemorrhage and was transferred to [facility] through the course of his workup, patient was found to have endocarditis and was then transferred to [facility] where the patient underwent open heart surgery to remove the mechanical valve and was given a bovine valve at that time. He also had implantation of a permanent pacemaker during that admission. According to the patient, he also had renal failure while he was there requiring dialysis. The patient went to rehab from [facility] and subsequently went home. While the patient was at [facility], he was experiencing some seizure like activity, he states that his hands became stiff, ultimately his entire body became stiff, and according to the girlfriend, he was frothing at the mouth, all of the symptoms lasted approximately 5 minutes in duration. CAT scan performed on admission here dorothy wed some dilated ventricles and some cerebral atrophy which was comparable to his prior CT in December. Patient denies any prior history of seizure-like activity. A Idhasofttronic interrogation was performed which did not reveal any significant cardiac arrhythmia. Chest x-ray did not reveal any acute process. EKG on presentation here showed a paced rhythm. Blood pressure on arrival here 176/101, heart rate in the 80s, 99% on room air. White blood cell count on admission 5.0, hemoglobin 8.7, platelet count 370. Sodium 135, potassium 5.2, BUN 28, creatinine 2.7, magnesium 1.7, BNP level 6600. Troponins 0.012, 0.015, 0.017. Pro time 12.4 with an INR of 1.2. This mornings lab work, white blood cell count 4.6, hemoglobin 7.4, platelet count 359. BUN 28, creatinine 2.5, potassium 4.3. Drug screen was negative. At the time of my examination this morning, patient states that he feels tired, he denies any headache, no dizziness or lightheadedness, no palpitations, no chest discomfort. Past Medical History Past Medical History: Coronary Artery Disease (CAD), Diabetes Mellitus, Eye Disorder, GERD/Reflux, Hyperlipidemia, Hypertension Additional Past Medical History / Comment(s): Recent cold, leaking aortic valve and had prosthetic aortic valve replacement, IDDM type II, bilateral eye injections for leaky vessels behind eye, epistaxix with coumadin use, syncope r/t diabetes. 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 Mother Family Medical History: Cancer Additional Family Medical History / Comment(s): Mother from Ewings sarcoma at the age of 57yrs. Medications and Allergies Home Medications Medication Instructions Recorded Confirmed Type Warfarin [Coumadin] 7.5 mg PO DAILY@209904/04/18 04/21/19 History Acetaminophen [Tylenol] 325 mg PO Q6H PRN 04/21/19 04/21/19 History Amiodarone [Cordarone] 200 mg PO DAILY@0900 04/21/19 04/21/19 History Aspirin EC [Ecotrin Low Dose] 81 mg PO DAILY@89904/21/19 04/21/19 History Atorvastatin [Lipitor] 20 mg PO HS@209904/21/19 04/21/19 History Bumetanide 4 mg PO DAILY@0900 04/21/19 04/21/19 History Carvedilol 25 mg PO BID@0900,209904/21/19 04/21/19 History Ferrous Sulfate [Iron] 325 mg PO BID@0900,209904/21/19 04/21/19 History Folic Acid-Vit B Complex-Vit C 1 mg PO DAILY@1700 04/21/19 04/21/19 History [Nephrocaps] INSULIN LISPRO (HumaLOG) [humaLOG] See Protocol SQ AC-BRKFST 04/21/19 04/21/19 History INSULIN LISPRO (HumaLOG) [humaLOG] See Protocol SQ HS 04/21/19 04/21/19 History Isradipine 10 mg PO BID@0900,2100 04/21/19 04/21/19 History Magnesium Oxide [Mag-Ox] 400 mg PO BID@0900,2100 04/21/19 04/21/19 History Potassium Chloride ER [K-Dur 20] 20 meq PO DAILY@0900 04/21/19 04/21/19 History Tamsulosin [Flomax] 0.4 mg PO DAILY@0900 04/21/19 04/21/19 History hydrALAZINE HCL 25 mg PO DAILY@1400 04/21/19 04/21/19 History hydrALAZINE HCL 50 mg PO BID@0600,2200 04/21/19 04/21/19 History Allergies Allergy/AdvReac Type Severity Reaction Status Date / Time No Known Allergies Allergy Verified 04/21/19 17:35 Physical Exam Vitals: Vital Signs Temp Pulse Pulse Resp BP BP Pulse Ox 04/22/19 04:07 98.0 F 76 15 163/84 98 04/22/19 00:15 98.1 F 81 16 154/78 97 04/21/19 21:10 98.2 F 80 16 201/88 95 04/21/19 18:10 98.3 F 77 18 165/96 98 04/21/19 18:09 77 18 165/96 98 04/21/19 18:00 77 165/96 98 04/21/19 17:30 79 168/96 96 04/21/19 17:00 74 8 L 159/90 92 L 04/21/19 16:30 78 14 146/88 04/21/19 16:00 77 14 166/94 04/21/19 15:30 82 14 176/101 04/21/19 15:16 85 13 04/21/19 15:14 98.3 F 84 18 176/101 99 Intake and Output 04/21/19 04/22/19 04/22/19 22:59 06:59 14:59 Intake Total 40 Output Total 250 Balance 40 -250 Intake: Amount of Fluid Infused ( 40 ml) Output: Urine 250 Other: Voiding Method Toilet Toilet Weight 77.564 kg 78.5 kg PHYSICAL EXAMINATION: GENERAL: 53-year-old gentleman in no acute distress at the time of my examination HEENT: Head is atraumatic, normocephalic. Pupils equal, round. Sclera anicteric. Conjunctiva are clear. Mucous membranes of the mouth are moist. Neck is supple. There is no elevated jugular venous pressure. No carotid bruit is heard. HEART EXAMINATION: Heart S1 and S2 with systolic murmur is heard CHEST EXAMINATION: Lungs are clear to auscultation and precussion. No chest wall tenderness is noted on palpation or with deep breathing. Chest incisions from recent surgery clean and dry, no evidence of redness or swelling. ABDOMEN: Soft, nontender. Bowel sounds are heard. No organomegaly noted. EXTREMITIES: 2+ peripheral pulses with no evidence of peripheral edema and no calf tenderness noted. NEUROLOGIC patient is awake, alert and oriented 3 . . Results 04/22/19 06:31 04/22/19 04:15 Cardiac Enzymes 04/21/19 04/21/19 04/21/19 Range/Units 15:54 15:54 22:02 AST 20 (17-59) U/L Troponin I 0.012 0.015 (0.000-0.034) ng/mL 04/22/19 Range/Units 04:15 AST (17-59) U/L Troponin I 0.017 (0.000-0.034) ng/mL Coagulation 04/21/19 04/22/19 Range/Units 15:54 04:15 PT 11.9 12.4 H (9.0-12.0) sec APTT 24.7 (22.0-30.0) sec CBC 04/21/19 04/22/19 04/22/19 Range/Units 15:54 04:15 06:31 WBC 5.0 4.5 4.6 (3.8-10.6) k/uL RBC 2.98 L 2.45 L 2.56 L (4.30-5.90) m/uL Hgb 8.7 L 7.1 L D 7.4 L (13.0-17.5) gm/dL Hct 27.3 L 22.6 L 23.7 L (39.0-53.0) % Plt Count 370 335 359 (150-450) k/uL Comprehensive Metabolic Panel 04/21/19 04/22/19 Range/Units 15:54 04:15 Sodium 135 L 134 L (137-145) mmol/L Potassium 5.2 H 4.3 (3.5-5.1) mmol/L Chloride 100 103 (98-107) mmol/L Carbon Dioxide 21 L 25 (22-30) mmol/L BUN 28 H 28 H (9-20) mg/dL Creatinine 2.77 H 2.54 H (0.66-1.25) mg/dL Glucose 298 H 221 H (74-99) mg/dL Calcium 9.4 9.0 (8.4-10.2) mg/dL AST 20 (17-59) U/L ALT 13 (4-49) U/L Alkaline Phosphatase 109 (38-126) U/L Total Protein 7.8 (6.3-8.2) g/dL Albumin 3.9 (3.5-5.0) g/dL Current Medications Generic Name Dose Route Start Last Admin Trade Name Freq PRN Reason Stop Dose Admin Acetaminophen 325 mg 04/21/19 18:44 Tylenol Tab PO Q6H PRN Fever and/ or Mild Pain Amiodarone HCl 200 mg 04/22/19 09:00 Cordarone PO DAILY@0900 [facility] Amlodipine Besylate 10 mg 04/21/19 19:00 04/22/19 00:08 Norvasc PO Not Given DAILY [facility] Aspirin 81 mg 04/22/19 09:00 Aspirin PO DAILY@0900 [facility] Atorvastatin Calcium 20 mg 04/21/19 21:00 04/21/19 21:36 Lipitor PO 20 mg HS@2100 [facility] Administration Bumetanide 4 mg 04/22/19 09:00 Bumex PO DAILY@0900 [facility] Carvedilol 25 mg 04/21/19 21:00 04/21/19 21:36 Coreg PO 25 mg BID@0900,2100 [facility] Administration Ferrous Sulfate 325 mg 04/21/19 21:00 04/21/19 21:36 Feosol PO 325 mg BID@0900,2100 [facility] Administration Hydralazine HCl 50 mg 04/21/19 22:00 04/21/19 21:36 Apresoline PO 50 mg TID [facility] Administration Hydromorphone HCl 0.5 mg 04/21/19 18:46 Dilaudid IVP Q6HR PRN Severe Pain Levetiracetam 1,000 mg/ IV 100 mls @ 400 mls/hr 04/22/19 08:00 Solution IVPB Q12H [facility] Insulin Aspart 0 unit 04/22/19 07:30 04/22/19 06:18 Novolog SQ 3 unit ACHS [facility] Administration Protocol Lorazepam 1 mg 04/21/19 18:46 Ativan IV Q4HR PRN Anxiety Magnesium Oxide 400 mg 04/21/19 21:00 04/21/19 21:36 Mag-Ox PO 400 mg BID@0900,2100 [facility] Administration Multivit/Ca Carb/B Cmplx/FA/Prenat 1 each 04/22/19 17:00 Nephrocaps PO DAILY@1700 [facility] Naloxone HCl 0.2 mg 04/21/19 17:26 Narcan IV Q2M PRN Opioid Reversal Isradipine [ 10 mg 04/21/19 21:00 04/22/19 00:08 Isradipine] 10 Mg PO Not Given BID@0900,2100 [facility] Pantoprazole Sodium 40 mg 04/22/19 07:30 04/22/19 06:18 Protonix PO 40 mg AC-BRKFST [facility] Administration Potassium Chloride 20 meq 04/22/19 09:00 K-Dur 20 PO DAILY@0900 [facility] Tamsulosin HCl 0.4 mg 04/22/19 09:00 Flomax PO DAILY@0900 [facility] Warfarin Sodium 7.5 mg 04/21/19 21:00 04/21/19 21:37 Coumadin PO 7.5 mg DAILY@2100 [facility] Administration Protocol Intake and Output 04/21/19 04/22/19 04/22/19 22:59 06:59 14:59 Intake Total 40 Output Total 250 Balance 40 -250 Intake: Amount of Fluid Infused ( 40 ml) Output: Urine 250 Other: Voiding Method Toilet Toilet Weight 77.564 kg 78.5 kg 04/22/19 06:31 04/22/19 04:15 EKG Interpretations (text) EKG shows a V paced rhythm Assessment and Plan Plan: Assessment and plan #1 acute tonic clonic seizures, new onset #2 history of recent aortic valve endocarditis, replacement of aortic prosthetic valve with a bovine valve at [facility]. #3 history of recent subarachnoid hemorrhage #4 acute on chronic renal failure #5 diabetes #6 accelerated hypertension #7 anemia #8 hyperlipidemia #9 GERD #10 subtherapeutic INR Plan We will review the patient's echocardiogram with Doppler study. Obtain records from [facility]. Continue Coumadin dosing at 7-1/2 mg daily as her at home. In view of the recent subarachnoid hemorrhage we do not recommend heparin at this time. Further recommendations to follow. DNP note has been reviewed, I agree with a documented findings and plan of care. Patient was seen and examined.
--- NOTE | 2019-04-22 10:18 | P.NPCON ---
History of Present Illness - Reason for Consult acute renal failure - History of Present Illness Reason for consultation: Acute kidney injury History of present illness: Patient is a 53-year-old male seen in renal consultation for acute kidney injury. Patient presented to the hospital after his girlfriend noticed that he was having a seizure. Patient was admitted at [facility] in February 2019 and was discharged earlier this month. Patient states he was admitted for over 40 days. Patient has history of aortic valve replacement and subsequently developed endocarditis. Patient states a cadaver valve was placed during his recent admission at [facility]. Patient also required renal replacement therapy and currently has a right femoral catheter. Patient states he required about 10-15 treatments of hemodialysis treatments and his last treatment was over 2 weeks ago. Patient states when he left the hospital his GFR was 15 and he was told by his etl programmer at [facility] then it was up to 20 as of last week. Today his creatinine is 2.4 with GFR of 28. He admits to good urine output. No hematuria or dysuria. Patient states his edema has improved significantly over the last few weeks. He denies use of nonsteroidals. No further seizure episodes. He does have long-standing history of diabetes mellitus. No chest pain or shortness of breath. Oral intake is good. Vital signs are stable. General: The patient appeared well nourished and normally developed. HEENT: Head exam is unremarkable. Neck is without jugular venous distension. LUNGS: Lungs are clear to auscultation and percussion. Breath sounds decreased. HEART: Rate and Rhythm are regular. First and second heart sounds normal. No murmurs, rubs or gallops. ABDOMEN: Abdominal exam reveals normal bowel sounds. Non-tender and non- distended. No evidence of peritonitis. EXTREMITITES: Trace edema. Past Medical History Past Medical History: Coronary Artery Disease (CAD), Diabetes Mellitus, Eye Disorder, GERD/Reflux, Hyperlipidemia, Hypertension Additional Past Medical History / Comment(s): Recent cold, leaking aortic valve and had prosthetic aortic valve replacement, IDDM type II, bilateral eye injections for leaky vessels behind eye, epistaxix with coumadin use, syncope r/t diabetes. 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 Mother Family Medical History: Cancer Additional Family Medical History / Comment(s): Mother from Ewings sarcoma at the age of 57yrs. Medications and Allergies Home Medications Medication Instructions Recorded Confirmed Type Warfarin [Coumadin] 7.5 mg PO DAILY@209904/04/18 04/21/19 History Acetaminophen [Tylenol] 325 mg PO Q6H PRN 04/21/19 04/21/19 History Amiodarone [Cordarone] 200 mg PO DAILY@89904/21/19 04/21/19 History Aspirin EC [Ecotrin Low Dose] 81 mg PO DAILY@89904/21/19 04/21/19 History Atorvastatin [Lipitor] 20 mg PO HS@209904/21/19 04/21/19 History Bumetanide 4 mg PO DAILY@0904/21/19 04/21/19 History Carvedilol 25 mg PO BID@0900,209904/21/19 04/21/19 History Ferrous Sulfate [Iron] 325 mg PO BID@0900,209904/21/19 04/21/19 History Folic Acid-Vit B Complex-Vit C 1 mg PO DAILY@1700 04/21/19 04/21/19 History [Nephrocaps] INSULIN LISPRO (HumaLOG) [humaLOG] See Protocol SQ AC-BRKFST 04/21/19 04/21/19 History INSULIN LISPRO (HumaLOG) [humaLOG] See Protocol SQ HS 04/21/19 04/21/19 History Isradipine 10 mg PO BID@0900,209904/21/19 04/21/19 History Magnesium Oxide [Mag-Ox] 400 mg PO BID@0900,209904/21/19 04/21/19 History Potassium Chloride ER [K-Dur 20] 20 meq PO DAILY@0904/21/19 04/21/19 History Tamsulosin [Flomax] 0.4 mg PO DAILY@0900 04/21/19 04/21/19 History hydrALAZINE HCL 25 mg PO DAILY@1400 04/21/19 04/21/19 History hydrALAZINE HCL 50 mg PO BID@0600,2200 04/21/19 04/21/19 History Allergies Allergy/AdvReac Type Severity Reaction Status Date / Time No Known Allergies Allergy Verified 04/21/19 17:35 Physical Exam Vitals: Vital Signs Temp Pulse Pulse Resp BP BP Pulse Ox 04/22/19 08:00 98.5 F 75 16 159/86 98 04/22/19 04:07 98.0 F 76 15 163/84 98 04/22/19 00:15 98.1 F 81 16 154/78 97 04/21/19 21:10 98.2 F 80 16 201/88 95 04/21/19 18:10 98.3 F 77 18 165/96 98 04/21/19 18:09 77 18 165/96 98 04/21/19 18:00 77 165/96 98 04/21/19 17:30 79 168/96 96 04/21/19 17:00 74 8 L 159/90 92 L 04/21/19 16:30 78 14 146/88 04/21/19 16:00 77 14 166/94 04/21/19 15:30 82 14 176/101 04/21/19 15:16 85 13 04/21/19 15:14 98.3 F 84 18 176/101 99 Intake and Output 04/21/19 04/22/19 04/22/19 22:59 06:59 14:59 Intake Total 40 240 Output Total 250 Balance 40 -250 240 Intake: Amount of Fluid Infused ( 40 ml) Oral 240 Output: Urine 250 Other: Voiding Method Toilet Toilet Weight 77.564 kg 78.5 kg Results - Lab Results Most recent lab results Calcium 9.0 mg/dL (8.4-10.2) 04/22/19 04:15 Magnesium 1.7 mg/dL (1.6-2.3) 04/21/19 15:54 04/22/19 06:31 04/22/19 04:15 Assessment and Plan Plan: Assessment: 1. Acute kidney injury secondary to septic ATN. Patient had been hemodialysis dependent and his last hemodialysis treatment was about 2 weeks ago. He has a right femoral catheter. Creatinine today is 2.54. UA is quite benign. 2. Seizure episode. 3. Recent endocarditis of the aortic valve status post treatment at [facility]. He had a bovine valve placed. 4. Benign hypertension. Controlled. 5. Diabetes mellitus. 6. History of recent subarachnoid hemorrhage. 7. Anemia. Rule out iron deficiency. Plan: Follow-up echocardiogram. Maintain Bumex. Check iron studies. Add Aranesp. No need for renal replacement therapy at this time. Patient states he has an appointment with [facility]'s vascular surgeon for removal of catheter in the near future. I did offer the patient that we can have the catheter removed during this admission if he wishes. Thank you for the consultation. I will continue to follow the patient with you during his hospital stay.
--- NOTE | 2019-04-22 11:00 | ECHOF ---
Referral Reason:seizure recent valave replacement MEASUREMENTS -------- HEIGHT: 182.9 cm WEIGHT: 78.5 kg BP: 163/84 RVIDd: 3.3 cm (< 3.3) IVSd: 1.4 cm (0.6 - 1.1) LVIDd: 5.0 cm (3.9 - 5.3) LVPWd: 1.5 cm (0.6 - 1.1) IVSs: 1.8 cm LVIDs: 3.5 cm LVPWs: 1.9 cm LA Diam: 4.3 cm (2.7 - 3.8) LAESV Index (A-L): 41.93 ml/m MV EXCURSION: 24.642 mm (> 18.000) MV EF SLOPE: 162 mm/s (70 - 150) EPSS: 0.3 cm MV E Mayur: 0.66 m/s MV DecT: 197 ms MV A Mayur: 0.82 m/s MV E/A Ratio: 0.81 AV maxP.63 mmHg AV meanP.15 mmHg RAP: 5.00 mmHg RVSP: 21.70 mmHg FINDINGS -------- Paced rhythm. This was a technically good study. The left ventricular size is normal. There is moderate concentric left ventricular hypertrophy. O verall left ventricular systolic function is mildly impaired with, an EF between 45 - 50 %. The right ventricle is normal in size. The left atrial size is normal. The right atrial size is normal. Peak/mean gradient across the Aortic Valve is 9.63mmHg / 5.15mmHg. Normally functioning bioprosthet ic valve. Mild mitral annular calcification present. Mild mitral regurgitation is present. [id number] tricuspid regurgitation present. Right ventricular systolic pressure is normal at < 35 mmHg. There is no evidence of pulmonary hypertension. There is no pulmonic regurgitation present. The aortic root size is normal. CONCLUSIONS -------- 1. Paced rhythm. 2. This was a technically good study. 3. The left ventricular size is normal. 4. There is moderate concentric left ventricular hypertrophy. 5. Overall left ventricular systolic function is mildly impaired with, an EF between 45 - 50 %. 6. The right ventricle is normal in size. 7. The left atrial size is normal. 8. The right atrial size is normal. 9. Peak/mean gradient across the Aortic Valve is 9.63mmHg / 5.15mmHg. 10. Normally functioning bioprosthetic valve. 11. Mild mitral annular calcification present. 12. Mild mitral regurgitation is present. 13. [id number] tricuspid regurgitation present. 14. Right ventricular systolic pressure is normal at < 35 mmHg. 15. There is no evidence of pulmonary hypertension. 16. There is no pulmonic regurgitation present. 17. The aortic root size is normal. SCREEN MAKING SUPERVISOR: Maria De Jesus Mckinley RDCS
[2019-04-22] MEDS ORDERED: DARBEPOETIN ALFA 40 MCG/0.4 ML SYRINGE SQ SCH (12:00)
[2019-04-22 12:20] LABS: Glucose,Whole Blood 228 mg/dL (75-99)
[2019-04-22] MEDS ORDERED: hydrALAZINE HCL 25 MG TAB PO SCH (14:00)
--- NOTE | 2019-04-22 16:18 | P.CNNES ---
History of Present Illness Consult date: 04/22/19 Requesting physician: Madelin Rene Reason for Consult: New onset seizure History of Present Illness: Patient is a 53-year-old male, with past medical history of aortic valve replacement, hypertension, hyperlipidemia, who presents to the emergency room with reported new onset seizure-like activity. Patient has had a recent complicated medical course. He was recently treated for upper respiratory infection and placed on antibiotics. He had high fever, which was found to have bacterial endocarditis from staph aureus on 02/25/2019. Patient's Coumadin was extremely elevated which caused a subarachnoid hemorrhage on 02/25/2019. Patient was transferred to [facility]. He had open-heart surgery to remove this mechanical valve to replace with a cadaveric valve. Patient also had a pacemaker placed. Patient went to rehab and the patient was just recently discharged from the hospital 2 weeks ago. Patient has been feeling well, taking all his medications. He was at his house yesterday in the afternoon, with his girlfriend. He was sitting, working on the computer, when suddenly he had a new onset seizure, that lasted for 2 minutes. Patient states that he remembers that his hands clenched up, then his jaw clenched up, then he lost consciousness and woke up in the ambulance. Apparently patient was told later on, that he has a generalized seizure with tonic-clonic activity, frothing from his mouth. Patient never had a seizure before. Does not take any medication for seizures. He was confused after the episode. No tongue bite or loss of control of bowels or bladder. Patient denies any recent head trauma. Patient denies any focal symptoms. CT head showed degenerative and remote ischemic changes slightly greater central component can be seen with normal pressure hydrocephalus, correlate clinically. I reviewed computed tomography scan of the head, and it reveals generalized cere bral atrophy, with no acute process. No evidence of NPH on my review. 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 Patient had a 2-D echo, which revealed paced rhythm, moderate concentric LVH. EF is 45-50%. Right ventricle is normal in size. Left atrial is normal. EKG showed electronic ventricular p acemaker. Patient's blood test shows normal WBC, hemoglobin 7.4 and platelets 359. INR 1.2. Sodium 134 potassium 4.3, BUN is 28, creatinine 2.54. Patient's hemoglobin A1c 8.5 on 04/04/2018. Total cholesterol is 183, LDL 108, HDL 63 and triglycerides 56. TSH is normal a year ago. Patient previously had a CTA of head and neck on 02/25/2019, which showed no focal aneurysm or stenosis. Patient has history of diabetes. Denies tobacco or alcohol use. Patient states that he had history of bicuspid aortic valve, which was replaced with mechanical valve, 18 years ago. He was fine until he had bacterial endocarditis in February 2019 as mentioned above. Review of Systems Denies headache, problem with vision, hoarseness, sore throat dysphagia. Denies any shortness of breath wheezing cough, chest pain, abdominal pain nausea vomiting diarrhea. Past Medical History Past Medical History: Coronary Artery Disease (CAD), Diabetes Mellitus, Eye Disorder, GERD/Reflux, Hyperlipidemia, Hypertension Additional Past Medical History / Comment(s): Recent cold, leaking aortic valve and had prosthetic aortic valve replacement, IDDM type II, bilateral eye injections for leaky vessels behind eye, epistaxix with coumadin use, syncope r/t diabetes. History of Any Multi-Drug Resistant Organisms: None Reported Past Surgical History: Cardiac Valve Replacement Additional Past Surgical History / Comment(s): aortic valve replacement done at [facility].heart valve replacement at [facility] due to a staph infection in heart valve Past Anesthesia/Blood Transfusion Reactions: No Reported Reaction Past Psychological History: No Psychological Hx Reported Smoking Status: Never smoker Past Alcohol Use History: Occasional Past Drug Use History: None Reported - Past Family History Father Family Medical History: Cancer Additional Family Medical History / Comment(s): Father at the age of 68yrs fromsquamous cell carcinoma. Mother Family Medical History: Cancer Additional Family Medical History / Comment(s): Mother from Ewings sarcoma at the age of 57yrs. Medications and Allergies Home Medications Medication Instructions Recorded Confirmed Type Warfarin [Coumadin] 7.5 mg PO DAILY@2100 04/04/18 04/21/19 History Acetaminophen [Tylenol] 325 mg PO Q6H PRN 04/21/19 04/21/19 History Amiodarone [Cordarone] 200 mg PO DAILY@0904/21/19 04/21/19 History Aspirin EC [Ecotrin Low Dose] 81 mg PO DAILY@0900 04/21/19 04/21/19 History Atorvastatin [Lipitor] 20 mg PO HS@209904/21/19 04/21/19 History Bumetanide 4 mg PO DAILY@0900 04/21/19 04/21/19 History Carvedilol 25 mg PO BID@0900,2100 04/21/19 04/21/19 History Ferrous Sulfate [Iron] 325 mg PO BID@0900,2100 04/21/19 04/21/19 History Folic Acid-Vit B Complex-Vit C 1 mg PO DAILY@1700 04/21/19 04/21/19 History [Nephrocaps] INSULIN LISPRO (HumaLOG) [humaLOG] See Protocol SQ AC-BRKFST 04/21/19 04/21/19 History INSULIN LISPRO (HumaLOG) [humaLOG] See Protocol SQ HS 04/21/19 04/21/19 History Isradipine 10 mg PO BID@0900,2100 04/21/19 04/21/19 History Magnesium Oxide [Mag-Ox] 400 mg PO BID@0900,209904/21/19 04/21/19 History Potassium Chloride ER [K-Dur 20] 20 meq PO DAILY@0900 04/21/19 04/21/19 History Tamsulosin [Flomax] 0.4 mg PO DAILY@0900 04/21/19 04/21/19 History hydrALAZINE HCL 25 mg PO DAILY@1400 04/21/19 04/21/19 History hydrALAZINE HCL 50 mg PO BID@0600,2200 04/21/19 04/21/19 History Allergies Allergy/AdvReac Type Severity Reaction Status Date / Time No Known Allergies Allergy Verified 04/21/19 17:35 Physical Examination - Vital Signs Vital Signs: Vital Signs Temp Pulse Pulse Resp BP BP Pulse Ox 04/22/19 11:24 98.6 F 72 16 135/78 99 04/22/19 08:00 98.5 F 75 16 159/86 98 04/22/19 04:07 98.0 F 76 15 163/84 98 04/22/19 00:15 98.1 F 81 16 154/78 97 04/21/19 21:10 98.2 F 80 16 201/88 95 04/21/19 18:10 98.3 F 77 18 165/96 98 04/21/19 18:09 77 18 165/96 98 04/21/19 18:00 77 165/96 98 04/21/19 17:30 79 168/96 96 04/21/19 17:00 74 8 L 159/90 92 L 04/21/19 16:30 78 14 146/88 04/21/19 16:00 77 14 166/94 04/21/19 15:30 82 14 176/101 Intake and Output 04/22/19 04/22/19 04/22/19 06:59 14:59 22:59 Intake Total 240 Output Total 250 Balance -250 240 Intake: Oral 240 Output: Urine 250 Other: Voiding Method Toilet Toilet Weight 78.5 kg On examination patient is a middle aged male, in no distress. Patient is alert and awake, fully oriented. Speech and language functions are normal. Attention and concentration fund of knowledge is adequate. Patient is a flat affect. On cranial examination pupils are round and reactive to light, visual vega are full, extraocular muscles are intact with no nystagmus. Face is symmetric, tongue protrudes the midline. Palate elevation and sensation normal. On muscle strength testing there is no pronator drift and the strength is normal in arms and legs distally and proximally. Reflexes are 1+ and plantars downgoing sensory touch is equal. No ataxia for axsqug-di-heun testing. Tone and bulk of muscles normal. There is no carotid bruit or murmur S1 and S2 audible. No peripheral edema. Results - Laboratory Findings CBC and BMP: 04/22/19 06:31 04/22/19 04:15 Abnormal Lab Findings: Abnormal Labs 04/21/19 04/21/19 04/21/19 15:54 15:54 15:54 RBC 2.98 L Hgb 8.7 L Hct 27.3 L Lymphocytes # 0.7 L PT INR 1.2 H Sodium 135 L Potassium 5.2 H Carbon Dioxide 21 L BUN 28 H Creatinine 2.77 H Glucose 298 H POC Glucose (mg/dL) Urine Protein Urine Glucose (UA) 04/21/19 04/22/19 04/22/19 20:13 04:15 04:15 RBC 2.45 L Hgb 7.1 L D Hct 22.6 L Lymphocytes # 0.9 L PT 12.4 H INR 1.2 H Sodium Potassium Carbon Dioxide BUN Creatinine Glucose POC Glucose (mg/dL) 290 H Urine Protein Urine Glucose (UA) 04/22/19 04/22/19 04/22/19 04:15 06:03 06:31 RBC 2.56 L Hgb 7.4 L Hct 23.7 L Lymphocytes # PT INR Sodium 134 L Potassium Carbon Dioxide BUN 28 H Creatinine 2.54 H Glucose 221 H POC Glucose (mg/dL) 245 H Urine Protein Urine Glucose (UA) 04/22/19 04/22/19 06:33 12:17 RBC Hgb Hct Lymphocytes # PT INR Sodium Potassium Carbon Dioxide BUN Creatinine Glucose POC Glucose (mg/dL) 228 H Urine Protein Trace H Urine Glucose (UA) 3+ H Assessment and Plan Assessment: * 53-year-old male with new onset seizure. Patient recently had history of subarachnoid hemorrhage related to coagulopathy, which may be contributing. No signs of meningitis/encephalitis. * History of bacterial endocarditis off mechanical aortic valve, status post replacement with cadaver valve * History of subarachnoid hemorrhage due to coagulopathy. * Diabetes, not well controlled Plan: * Patient had EEG performed today. It revealed frequent left temporal slowing, with sharp and slow wave activity, suggestive of focal cortical neuronal dysfunction with underlying cortical irritability and tendency for seizures. This predisposes patient for future focal onset seizures. * Patient has been started on Keppra 1000 mg IV twice a day. We will switch it to Keppra 750 mg orally twice a day, due to his moderate renal insufficiency. * Patient was informed of [place] state law of no driving, unless seizure free for 6 months, climbing ladders, operate dangerous machinery, or unsupervised swimming. * Patient to follow up with a neurologist locally to manage his seizure disorder. Patient may need seizure medication for long-term. * Neurologically otherwise clear.
[2019-04-22] MEDS ORDERED: FUROSEMIDE 10 MG/ML 4 ML VIAL IV STA (16:58)
[2019-04-22 16:59] LABS: % Iron Saturation 16.75 (15.00-50.00)
[2019-04-22] MEDS ORDERED: FOLIC ACID-VIT B COMPLEX-VIT C 1 CAP PO SCH (17:00)
[2019-04-22 17:03] LABS: Glucose,Whole Blood 173 mg/dL (75-99)
[2019-04-22 17:22] LABS: Ferritin 437.4 ng/mL (22.0-322.0)
--- NOTE | 2019-04-22 18:19 | EEG ---
ELECTROENCEPHALOGRAM REPORT DATE OF SERVICE: 04/22/2019. PREAMBLE: This is a 53-year-old male with new-onset seizure. This study is performed to evaluate for any epileptiform activity. EEG FINDINGS: A routine 21-channel awake digital EEG recording was accomplished utilizing the 10/20 international system with bipolar and referential montages. The background consists of well-developed, well-regulated, moderate-voltage activity in 7-8 Hz, posterior-dominant and reactive to eye opening and closing. Frequent left temporal dysrhythmic theta activity seen. Frequent left temporal sharp and slow waves were seen. Photic driving response was seen. Stage II sleep was attained only at the very end of the recording. No electrographic seizure was recorded. EKG rhythm lead revealed no arrhythmia. IMPRESSION: This is an abnormal EEG due to presence of focal slowing, with epileptiform activity over the left temporal region. This is suggestive of focal cortical neuronal dysfunction with underlying cortical irritability and tendency for seizures. This patient has a predisposition for focal onset seizures. MMODL / IJN: [id number] /
--- NOTE | 2019-04-22 19:49 | PN ---
PROGRESS NOTE DATE OF SERVICE: 04/22/2019 This 53-year-old gentleman recently had a stone and medical/surgery course including endocarditis, replacement of the aortic valve because of endocarditis and history of subarachnoid hemorrhage and as well as possible normal-pressure hydrocephalus, being followed by Dr. Wu in the outpatient setting admitted with features of possible tonic, clonic seizures. Multiple consultants are following the patient closely at this time including Neurology. saw the patient and recommended Keppra 750 mg twice daily because of the moderate and not driving at this time. The patient being closely monitor. Multiple consultants are following the patient closely. A 2D echo with Doppler was done today this morning which showed ejection fraction about 45- 50 percent with mild to moderate tricuspid regurgitation and right ventricle systolic pressure less than 35. The patient being closely monitored. PAST MEDICAL HISTORY: Reviewed. REVIEW OF SYSTEMS: Cardiovascular system: As mentioned earlier. RESPIRATORY: As mentioned earlier. GI no nausea or vomiting. no dysuria. CENTRAL NERVOUS SYSTEM: As mentioned earlier. CURRENT MEDICATIONS: Reviewed and include: 1. Tylenol p.r.n. 2. Cordarone 200 mg. 3. Norvasc 10 mg. 4. Aspirin 81 mg. 5. Lipitor 10 mg q.h.s. 6. Bumex 4 mg p.o. daily. 7. Coreg 20 mg p.o. b.i.d. 9. Iron sulfate 325 mg p.o. b.i.d. 10.Apresoline 50 mg p.o. t.i.d. 11.Dilaudid. 12.NovoLog. 13.Keppra 750 mg p.o. b.i.d. 14.Magnesium oxide. 16.Protonix 40 mg daily. 17.K-Dur 20 mEq p.o. daily. 18.Flomax 0.4 daily. 19.Coumadin 7.5 mg p.o. daily. PHYSICAL EXAMINATION: Patient is alert, oriented x3. Pulse 70. Blood pressure 145/76, respirations 16, temperature 98.2, pulse ox 98% on room air. HEENT: Conjunctivae normal. NECK: No JVD. CARDIOVASCULAR: S1, S2 muffled. S1 is the loud. No S2. S2 is normal. Ejection systolic murmur. RESPIRATIONS: Breath sounds diminished in the bases. A few scattered rhonchi and crackles. Breath sounds diminished in the bases. ABDOMEN: Soft, nontender. No mass palpable. LEGS: No edema. No swelling. NERVOUS SYSTEM: Higher functions as mentioned earlier. Cranial nerves 2 thru 12 grossly intact. No focal deficits. LABS: WBC 4.9, hemoglobin 11.4, otherwise sodium is 134. Glucose noted. ASSESSMENT: 1. Acute tonic-clonic seizures, new onset undetermined etiology. 2. History of recent aortic valve endocarditis and replacement with aortic prosthetic valve with bovine graft at . 3. History of recent subarachnoid hemorrhage. 4. Rule out normal pressure hydrocephalus. 5. Mild hyponatremia. 6. Mild hyperkalemia. 7. Anemia, multifactorial, possibly nutritional. 8. Renal failure acute, possibly acute tubular necrosis, prerenal factors. 9. Diabetes mellitus type 2. 10.History of coronary artery disease, history of recent eye injection. 11.History gastroesophageal reflux disease. 12.Hypertension. 13.Hyperlipidemia. 14.History of aortic regurgitation previously. 15.History of epistaxis and Coumadin use. RECOMMENDATIONS AND DISCUSSION: Continue the current medications, management and symptomatic treatment. Otherwise, at this time, I recommend closely follow with Neurology and I would also recommend 1 unit of transfusion and continue to monitor. Guarded prognosis. Further recommendations to follow. MMODL / IJN: [id number] / MTDD
[2019-04-22 21:07] LABS: Glucose,Whole Blood 171 mg/dL (75-99)
[2019-04-22] MEDS: ATORVASTATIN 20 MG TAB PO SCH (21:26)
[2019-04-22] MEDS: levETIRAcetam 250 MG TAB PO SCH (21:27)
[2019-04-22] MEDS: WARFARIN 7.5 MG TAB PO SCH (22:27)
[2019-04-23 06:57] LABS: Glucose,Whole Blood 188 mg/dL (75-99)
[2019-04-23] MEDS: INSULIN ASPART (NovoLOG) 100 UNIT/ML VIAL SQ SCH ×2 (07:11→12:37)
[2019-04-23] MEDS: amLODIPine 10 MG TAB PO SCH (07:11)
[2019-04-23] MEDS: PANTOPRAZOLE 40 MG TABLET PO SCH (07:11)
[2019-04-23] MEDS: AMIODARONE 200 MG TAB PO SCH (07:12)
[2019-04-23] MEDS: hydrALAZINE HCL 50 MG TAB PO SCH (07:12)
[2019-04-23] MEDS: CARVEDILOL 12.5 MG TAB PO SCH (07:12)
[2019-04-23] MEDS: FERROUS SULFATE 325 MG TAB PO SCH (07:12)
[2019-04-23] MEDS: ASPIRIN 81 MG PO SCH (07:12)
[2019-04-23] MEDS: TAMSULOSIN 0.4 MG CAP.ER.24H PO SCH (07:12)
[2019-04-23] MEDS: POTASSIUM CHLORIDE ER 20 MEQ TAB.ER PO SCH (07:12)
[2019-04-23] MEDS: MAGNESIUM OXIDE 400 MG TAB PO SCH (07:12)
[2019-04-23] MEDS: levETIRAcetam 250 MG TAB PO SCH (07:13)
[2019-04-23 07:53] LABS: Calcium 9.3 mg/dL (8.4-10.2); Magnesium 1.8 mg/dL (1.6-2.3); Potassium 4.5 mmol/L (3.5-5.1)
[2019-04-23 08:01] LABS: INR 1.2 (<1.2); Prothrombin Time 12.4 sec (9.0-12.0)
[2019-04-23 08:02] LABS: Basophils % (A) 1 %; Eosinophils # (A) 0.3 k/uL (0-0.7); Eosinophils % (A) 7 %; HCT 24.2 % (39.0-53.0); HGB 7.7 gm/dL (13.0-17.5); Lymphocytes # (A) 0.9 k/uL (1.0-4.8); Lymphocytes % (A) 22 %; MCH 28.9 pg (25.0-35.0); MCHC 31.9 g/dL (31.0-37.0); MCV 90.5 fL (80.0-100.0); Monocytes # (A) 0.2 k/uL (0-1.0); Monocytes % (A) 6 %; Neutrophils # (A) 2.6 k/uL (1.3-7.7); Neutrophils % (A) 61 %; Platelet Count 382 k/uL (150-450); RBC 2.68 m/uL (4.30-5.90); RDW 15.3 % (11.5-15.5); WBC 4.2 k/uL (3.8-10.6)
[2019-04-23] MEDS: BUMETANIDE 1 MG TAB PO SCH (08:18)
[2019-04-23 08:44] VITALS: BP 160/85; PULSE 72; RESP 16; TEMP 97.5
--- NOTE | 2019-04-23 11:01 | P.PN ---
Subjective Patient is seen in follow-up for acute kidney injury. Patient developed acute kidney injury while he was at [facility] due to septic ATN from endocarditis. Patient's last hemodialysis treatment was over 2 weeks ago. He is currently maintained on oral Bumex and has good urine output. No significant edema. GFR is fairly stable compared to yesterday. Oral intake is good. No vomiting or diarrhea. Vital signs are stable. General: The patient appeared well nourished and normally developed. HEENT: Head exam is unremarkable. Neck is without jugular venous distension. LUNGS: Lungs are clear to auscultation and percussion. Breath sounds decreased. HEART: Rate and Rhythm are regular. First and second heart sounds normal. No murmurs, rubs or gallops. ABDOMEN: Abdominal exam reveals normal bowel sounds. Non-tender and non-distende d. No evidence of peritonitis. EXTREMITITES: No clubbing, cyanosis, or edema. Objective - Vital Signs Vital signs: Vital Signs Temp 97.5 F L 04/23/19 07:30 Pulse 72 04/23/19 07:30 Resp 16 04/23/19 07:30 BP 160/85 04/23/19 07:30 Pulse Ox 98 04/23/19 07:30 Intake & Output 04/22/19 04/23/19 04/23/19 18:59 06:59 18:59 Intake Total 240 550 Balance 240 550 Intake: Oral 240 550 Other: Voiding Method Toilet Toilet - Labs CBC & Chem 7: 04/23/19 07:16 04/23/19 07:16 Labs: Abnormal Lab Results - Last 24 Hours (Table) 04/22/19 04/22/19 04/22/19 Range/Units 04:15 12:17 17:01 RBC (4.30-5.90) m/uL Hgb (13.0-17.5) gm/dL Hct (39.0-53.0) % Lymphocytes # (1.0-4.8) k/uL PT (9.0-12.0) sec INR (<1.2) BUN (9-20) mg/dL Creatinine (0.66-1.25) mg/dL Glucose (74-99) mg/dL POC Glucose (mg/dL) 228 H 173 H (75-99) mg/dL Iron 35 L (65-175) ug/dL TIBC 209 L (228-460) ug/dL Ferritin 437.4 H (22.0-322.0) ng/mL Crossmatch 04/22/19 04/22/19 04/22/19 Range/Units 18:18 20:56 21:53 RBC (4.30-5.90) m/uL Hgb (13.0-17.5) gm/dL Hct (39.0-53.0) % Lymphocytes # (1.0-4.8) k/uL PT (9.0-12.0) sec INR (<1.2) BUN (9-20) mg/dL Creatinine (0.66-1.25) mg/dL Glucose (74-99) mg/dL POC Glucose (mg/dL) 171 H (75-99) mg/dL Iron (65-175) ug/dL TIBC (228-460) ug/dL Ferritin (22.0-322.0) ng/mL Crossmatch See Detail See Detail 04/23/19 04/23/19 04/23/19 Range/Units 06:54 07:16 07:16 RBC 2.68 L (4.30-5.90) m/uL Hgb 7.7 L (13.0-17.5) gm/dL Hct 24.2 L (39.0-53.0) % Lymphocytes # 0.9 L (1.0-4.8) k/uL PT 12.4 H (9.0-12.0) sec INR 1.2 H (<1.2) BUN (9-20) mg/dL Creatinine (0.66-1.25) mg/dL Glucose (74-99) mg/dL POC Glucose (mg/dL) 188 H (75-99) mg/dL Iron (65-175) ug/dL TIBC (228-460) ug/dL Ferritin (22.0-322.0) ng/mL Crossmatch 04/23/19 Range/Units 07:16 RBC (4.30-5.90) m/uL Hgb (13.0-17.5) gm/dL Hct (39.0-53.0) % Lymphocytes # (1.0-4.8) k/uL PT (9.0-12.0) sec INR (<1.2) BUN 30 H (9-20) mg/dL Creatinine 2.65 H (0.66-1.25) mg/dL Glucose 168 H (74-99) mg/dL POC Glucose (mg/dL) (75-99) mg/dL Iron (65-175) ug/dL TIBC (228-460) ug/dL Ferritin (22.0-322.0) ng/mL Crossmatch Microbiology - Last 24 Hours (Table) 04/21/19 22:02 Blood Culture - Preliminary Blood No Growth after 24 hours Assessment and Plan Plan: Assessment: 1. Acute kidney injury secondary to septic ATN. Patient had been hemodialysis dependent and his last hemodialysis treatment was over 2 weeks ago. He has a right femoral catheter. Creatinine today is fairly stable at 2.65. UA is quite benign. 2. Seizure episode. Neurology following. 3. Recent endocarditis of the aortic valve status post treatment at [facility]. He had a bovine valve placed. 4. Benign hypertension. Controlled. 5. Diabetes mellitus. 6. History of recent subarachnoid hemorrhage. 7. Anemia. Iron deficiency noted. Maintained on Aranesp. 8. Acute on chronic systolic CHF with ejection fraction of 45-50% and mild to moderate tricuspid regurgitation. Plan: Maintain oral Bumex. IV iron 3 doses. First dose today. No need for renal replacement therapy at this time. Consult vascular surgery for removal of femoral dialysis catheter.
[2019-04-23] MEDS ORDERED: SODIUM FERRIC GLUCONAT-SUCROSE 125 MG in SODIUM CHLORIDE 0.9% 100 ML IVPB SCH (12:00)
[2019-04-23 12:03] LABS: Glucose,Whole Blood 227 mg/dL (75-99)
--- NOTE | 2019-04-23 12:19 | P.PN ---
Subjective This is a pleasant 53-year-old male past medical history significant for valvular heart disease status post aortic valve replacement with subsequent aortic root abscess and replacement of mechanical aortic valve with bioprosthetic valve 02/2019, subarachnoid hemorrhage, complete heart block s/p permanent pacemaker implantation, hypertension, dyslipidemia, diabetes mellitus, diabetes mellitus and gastroesophageal reflux disease. He follows with CT surgery out of [facility] and also Dr. Perry in our office. He presented here with new onset seizures and has been initiated on keppra. He denies chest pain, shortness of breath, dizziness or palpitations. Blood pressure 160/85 heart rate 72 afebrile and maintaining oxygen saturation on room air. Laboratory data reviewed, WBC 4.2, hemoglobin 7.7, platelets 382, INR 1.2, sodium 138, potassium 4.5, creatinine 2.65 and magnesium 1.8. Currently maintained on amiodarone 200 mg daily, amlodipine 10 mg daily, aspirin 81 mg daily, atorvastatin 20 mg daily, Bumex 4 mg daily, carvedilol 25 mg twice a day, hydralazine 50 mg 3 times a day and Coumadin. Echocardiogram reveals mildly impaired LV systolic function with ejection fraction 45-50%, normally functioning bioprosthetic aortic valve with a mean gradient of 5 mmHg, mild MR, mild to moderate TR and no significant pulmonary hypertension. RVSP less than 35 mmHg. GENERAL: Well-appearing, well-nourished and in no acute distress. NECK: Supple without JVD or thyromegaly. LUNGS: Breath sounds clear to auscultation bilaterally. Respiration equal and unlabored. No wheezes, rales or rhonchi. HEART: Regular rate and rhythm with systolic ejection murmur at the base, no rubs or gallops. S1 and S2 heard. EXTREMITIES: Normal range of motion, no edema. No clubbing or cyanosis. Peripheral pulses intact. ASSESSMENT Acute tonic clonic seizures, new onset Aortic valve disease s/p mechanical valve replacement with subsequent aortic r oot abscess and repeat valve repair with bioprostheic valve Paroxysmal atrial fibrillation maintained on group home anticoagulation, currently maintaining sinus mechanism Acute on chronic renal failure Hypertension Dyslipdemia Anemia History of subarachnoid hemorrhage. Sub-therapeutic INR, dosing per pharmacy. Pt will be switched to NOAC in the near future per CT surgery at next follow up appointment PLAN Continue current medical regimen. Stable from a cardiac perspective. Follow up with CT surgeon next month and then Dr. Perry thereafter. We will continue to follow as needed, please call with further questions or concerns. Nurse Practitioner note has been reviewed, I agree with a documented findings and plan of care. Patient was seen and examined. Objective - Vital Signs Vital signs: Vital Signs Temp 97.5 F L 04/23/19 07:30 Pulse 72 04/23/19 07:30 Resp 16 04/23/19 07:30 BP 160/85 04/23/19 07:30 Pulse Ox 98 04/23/19 07:30 Intake & Output 04/22/19 04/23/19 04/23/19 18:59 06:59 18:59 Intake Total 240 550 Balance 240 550 Intake: Oral 240 550 Other: Voiding Method Toilet Toilet - Labs CBC & Chem 7: 04/23/19 07:16 04/23/19 07:16 Labs: Abnormal Lab Results - Last 24 Hours (Table) 04/22/19 04/22/19 04/22/19 Range/Units 04:15 12:17 17:01 RBC (4.30-5.90) m/uL Hgb (13.0-17.5) gm/dL Hct (39.0-53.0) % Lymphocytes # (1.0-4.8) k/uL PT (9.0-12.0) sec INR (<1.2) BUN (9-20) mg/dL Creatinine (0.66-1.25) mg/dL Glucose (74-99) mg/dL POC Glucose (mg/dL) 228 H 173 H (75-99) mg/dL Iron 35 L (65-175) ug/dL TIBC 209 L (228-460) ug/dL Ferritin 437.4 H (22.0-322.0) ng/mL Crossmatch 04/22/19 04/22/19 04/22/19 Range/Units 18:18 20:56 21:53 RBC (4.30-5.90) m/uL Hgb (13.0-17.5) gm/dL Hct (39.0-53.0) % Lymphocytes # (1.0-4.8) k/uL PT (9.0-12.0) sec INR (<1.2) BUN (9-20) mg/dL Creatinine (0.66-1.25) mg/dL Glucose (74-99) mg/dL POC Glucose (mg/dL) 171 H (75-99) mg/dL Iron (65-175) ug/dL TIBC (228-460) ug/dL Ferritin (22.0-322.0) ng/mL Crossmatch See Detail See Detail 04/23/19 04/23/19 04/23/19 Range/Units 06:54 07:16 07:16 RBC 2.68 L (4.30-5.90) m/uL Hgb 7.7 L (13.0-17.5) gm/dL Hct 24.2 L (39.0-53.0) % Lymphocytes # 0.9 L (1.0-4.8) k/uL PT 12.4 H (9.0-12.0) sec INR 1.2 H (<1.2) BUN (9-20) mg/dL Creatinine (0.66-1.25) mg/dL Glucose (74-99) mg/dL POC Glucose (mg/dL) 188 H (75-99) mg/dL Iron (65-175) ug/dL TIBC (228-460) ug/dL Ferritin (22.0-322.0) ng/mL Crossmatch 04/23/19 Range/Units 07:16 RBC (4.30-5.90) m/uL Hgb (13.0-17.5) gm/dL Hct (39.0-53.0) % Lymphocytes # (1.0-4.8) k/uL PT (9.0-12.0) sec INR (<1.2) BUN 30 H (9-20) mg/dL Creatinine 2.65 H (0.66-1.25) mg/dL Glucose 168 H (74-99) mg/dL POC Glucose (mg/dL) (75-99) mg/dL Iron (65-175) ug/dL TIBC (228-460) ug/dL Ferritin (22.0-322.0) ng/mL Crossmatch Microbiology - Last 24 Hours (Table) 04/21/19 22:02 Blood Culture - Preliminary Blood No Growth after 24 hours
--- NOTE | 2019-04-23 13:32 | P.GSCN ---
History of Present Illness Consult date: 04/23/19 Reason for Consult: Removal of right femoral temporary dialysis catheter History of present illness: The patient is a 53-year-old male who was brought into the emergency department 2 days ago for new onset seizure-like activity. The patient has a past medical history of aortic valve replacement, hypertension and hyperlipidemia. He was seen here in February for high fever secondary to endocarditis. He was subsequently transferred to [facility] related to endocarditis of the mechanical valve. The patient had underwent open-heart surgery to remove his mechanical valve and replaced it with a bovine valve. Patient also had a pacemaker placed at that time. The patient subsequently had acute kidney injury during his hospital stay, which a right femoral temporary dialysis catheter was placed. The patient reports he did receive dialysis during hospital stay however was discharged on April 07 and has not required any further dialysis. Dr. Guajardo has evaluated the patient, he is currently maintained on oral Bumex, and the patient is continuing to make good urine output. She has requested vascular surgery services to remove the dialysis catheter. The patient denies any further episodes of seizures. Patient denies any bleeding, shortness of breath, chest pain, or fever. Patient is currently on Coumadin today's INR was 1.2. Review of Systems Review of systems completed and all pertinent positives and negatives as stated in the HPI. Past Medical History Past Medical History: Coronary Artery Disease (CAD), Diabetes Mellitus, Eye Disorder, GERD/Reflux, Hyperlipidemia, Hypertension Additional Past Medical History / Comment(s): Recent cold, leaking aortic valve and had prosthetic aortic valve replacement, IDDM type II, bilateral eye injections for leaky vessels behind eye, epistaxix with coumadin use, syncope r/t diabetes. 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 Mother Family Medical History: Cancer Additional Family Medical History / Comment(s): Mother from Ewings sarcoma at the age of 57yrs. Medications and Allergies Home Medications Medication Instructions Recorded Confirmed Type Warfarin [Coumadin] 7.5 mg PO DAILY@209904/04/18 04/21/19 History Acetaminophen [Tylenol] 325 mg PO Q6H PRN 04/21/19 04/21/19 History Amiodarone [Cordarone] 200 mg PO DAILY@0904/21/19 04/21/19 History Aspirin EC [Ecotrin Low Dose] 81 mg PO DAILY@0904/21/19 04/21/19 History Atorvastatin [Lipitor] 20 mg PO HS@209904/21/19 04/21/19 History Bumetanide 4 mg PO DAILY@89904/21/19 04/21/19 History Carvedilol 25 mg PO BID@0900,209904/21/19 04/21/19 History Ferrous Sulfate [Iron] 325 mg PO BID@0900,209904/21/19 04/21/19 History Folic Acid-Vit B Complex-Vit C 1 mg PO DAILY@1700 04/21/19 04/21/19 History [Nephrocaps] INSULIN LISPRO (HumaLOG) [humaLOG] See Protocol SQ AC-BRKFST 04/21/19 04/21/19 History INSULIN LISPRO (HumaLOG) [humaLOG] See Protocol SQ HS 04/21/19 04/21/19 History Isradipine 10 mg PO BID@0900,209904/21/19 04/21/19 History Magnesium Oxide [Mag-Ox] 400 mg PO BID@0900,209904/21/19 04/21/19 History Potassium Chloride ER [K-Dur 20] 20 meq PO DAILY@0900 04/21/19 04/21/19 History Tamsulosin [Flomax] 0.4 mg PO DAILY@0900 04/21/19 04/21/19 History hydrALAZINE HCL 25 mg PO DAILY@1400 04/21/19 04/21/19 History hydrALAZINE HCL 50 mg PO BID@0600,2200 04/21/19 04/21/19 History Allergies Allergy/AdvReac Type Severity Reaction Status Date / Time No Known Allergies Allergy Verified 04/21/19 17:35 Surgical - Exam Vital Signs Temp Pulse Resp BP Pulse Ox 98.3 F 84 18 176/101 99 04/21/19 15:14 04/21/19 15:14 04/21/19 15:14 04/21/19 15:14 04/21/19 15:14 General appearance: The patient is alert, oriented, in no acute distress. HET: Head is normocephalic and atraumatic. Pupils are equal and reactive. Neck: Supple without lymphadenopathy. Trachea midline. Heart: S1 S2. Regular rate and rhythm. Lungs: No crackles or wheezes are heard. Groins: Palpable bilateral femoral pulses. Extremities: Normal skin color and turgor. No cyanosis, rash, ulceration, clubbing, or edema. Radial and pedal pulses are 2/4 bilaterally. Right femoral hemodialysis catheter present, without any redness or drainage. Dressing clean dry and intact. Neurological: No focal deficits noted. Results - Labs 04/23/19 07:16 04/23/19 07:16 Abnormal Lab Results - Last 24 Hours (Table) 04/22/19 04/22/19 04/22/19 Range/Units 04:15 17:01 18:18 RBC (4.30-5.90) m/uL Hgb (13.0-17.5) gm/dL Hct (39.0-53.0) % Lymphocytes # (1.0-4.8) k/uL PT (9.0-12.0) sec INR (<1.2) BUN (9-20) mg/dL Creatinine (0.66-1.25) mg/dL Glucose (74-99) mg/dL POC Glucose (mg/dL) 173 H (75-99) mg/dL Iron 35 L (65-175) ug/dL TIBC 209 L (228-460) ug/dL Ferritin 437.4 H (22.0-322.0) ng/mL Crossmatch See Detail 04/22/19 04/22/19 04/23/19 Range/Units 20:56 21:53 06:54 RBC (4.30-5.90) m/uL Hgb (13.0-17.5) gm/dL Hct (39.0-53.0) % Lymphocytes # (1.0-4.8) k/uL PT (9.0-12.0) sec INR (<1.2) BUN (9-20) mg/dL Creatinine (0.66-1.25) mg/dL Glucose (74-99) mg/dL POC Glucose (mg/dL) 171 H 188 H (75-99) mg/dL Iron (65-175) ug/dL TIBC (228-460) ug/dL Ferritin (22.0-322.0) ng/mL Crossmatch See Detail 04/23/19 04/23/19 04/23/19 Range/Units 07:16 07:16 07:16 RBC 2.68 L (4.30-5.90) m/uL Hgb 7.7 L (13.0-17.5) gm/dL Hct 24.2 L (39.0-53.0) % Lymphocytes # 0.9 L (1.0-4.8) k/uL PT 12.4 H (9.0-12.0) sec INR 1.2 H (<1.2) BUN 30 H (9-20) mg/dL Creatinine 2.65 H (0.66-1.25) mg/dL Glucose 168 H (74-99) mg/dL POC Glucose (mg/dL) (75-99) mg/dL Iron (65-175) ug/dL TIBC (228-460) ug/dL Ferritin (22.0-322.0) ng/mL Crossmatch 04/23/19 Range/Units 12:00 RBC (4.30-5.90) m/uL Hgb (13.0-17.5) gm/dL Hct (39.0-53.0) % Lymphocytes # (1.0-4.8) k/uL PT (9.0-12.0) sec INR (<1.2) BUN (9-20) mg/dL Creatinine (0.66-1.25) mg/dL Glucose (74-99) mg/dL POC Glucose (mg/dL) 227 H (75-99) mg/dL Iron (65-175) ug/dL TIBC (228-460) ug/dL Ferritin (22.0-322.0) ng/mL Crossmatch Microbiology - Last 24 Hours (Table) 04/21/19 22:02 Blood Culture - Preliminary Blood No Growth after 24 hours Diabetes panel 04/23/19 Range/Units 07:16 Sodium 138 (137-145) mmol/L Potassium 4.5 (3.5-5.1) mmol/L Chloride 104 (98-107) mmol/L Carbon Dioxide 22 (22-30) mmol/L BUN 30 H (9-20) mg/dL Creatinine 2.65 H (0.66-1.25) mg/dL Glucose 168 H (74-99) mg/dL Calcium 9.3 (8.4-10.2) mg/dL Calcium panel 04/23/19 Range/Units 07:16 Calcium 9.3 (8.4-10.2) mg/dL Pituitary panel 04/23/19 Range/Units 07:16 Sodium 138 (137-145) mmol/L Potassium 4.5 (3.5-5.1) mmol/L Chloride 104 (98-107) mmol/L Carbon Dioxide 22 (22-30) mmol/L BUN 30 H (9-20) mg/dL Creatinine 2.65 H (0.66-1.25) mg/dL Glucose 168 H (74-99) mg/dL Calcium 9.3 (8.4-10.2) mg/dL Adrenal panel 04/23/19 Range/Units 07:16 Sodium 138 (137-145) mmol/L Potassium 4.5 (3.5-5.1) mmol/L Chloride 104 (98-107) mmol/L Carbon Dioxide 22 (22-30) mmol/L BUN 30 H (9-20) mg/dL Creatinine 2.65 H (0.66-1.25) mg/dL Glucose 168 H (74-99) mg/dL Calcium 9.3 (8.4-10.2) mg/dL Assessment and Plan Assessment: 1. Acute kidney injury secondary to septic ATN, resolved. Patient had been hemodialysis dependent and his last hemodialysis treatment was over 2 weeks ago. Creatinine is stable at 2.65. 2. Seizure episode. Neurology following 3. Recent endocarditis of the aortic valve status post treatment at [facility] with the bovine valve placed and pacemaker. 4. Hypertension 5. Diabetes mellitus 6. History of recent subarachnoid hemorrhage Plan: Dr. Morejon to remove right femoral temporary dialysis catheter at bedside today. Signed consent from patient received and in chart. Thank you for this consultation and allowing us to take part in the plan of care of this patient during his hospital stay. The above dictated assessment and findings were discussed with Dr. Morejon. The impression and plan of care have been directed as dictated.
--- NOTE | 2019-04-23 15:38 | P.PN ---
Subjective Progress Note Date: 04/23/19 Doing well, offers no complaints. Laying comfortably in the bed. No further seizures noted. Objective - Vital Signs Vital signs: Vital Signs Temp 97.5 F L 04/23/19 07:30 Pulse 72 04/23/19 07:30 Resp 16 04/23/19 07:30 BP 160/85 04/23/19 07:30 Pulse Ox 98 04/23/19 07:30 Intake & Output 04/22/19 04/23/19 04/23/19 18:59 06:59 18:59 Intake Total 240 550 Balance 240 550 Intake: Oral 240 550 Other: Voiding Method Toilet Toilet - Exam Nonfocal. Normal mentation. - Labs CBC & Chem 7: 04/23/19 07:16 04/23/19 07:16 Labs: Abnormal Lab Results - Last 24 Hours (Table) 04/22/19 04/22/19 04/22/19 Range/Units 04:15 17:01 18:18 RBC (4.30-5.90) m/uL Hgb (13.0-17.5) gm/dL Hct (39.0-53.0) % Lymphocytes # (1.0-4.8) k/uL PT (9.0-12.0) sec INR (<1.2) BUN (9-20) mg/dL Creatinine (0.66-1.25) mg/dL Glucose (74-99) mg/dL POC Glucose (mg/dL) 173 H (75-99) mg/dL Iron 35 L (65-175) ug/dL TIBC 209 L (228-460) ug/dL Ferritin 437.4 H (22.0-322.0) ng/mL Crossmatch See Detail 04/22/19 04/22/19 04/23/19 Range/Units 20:56 21:53 06:54 RBC (4.30-5.90) m/uL Hgb (13.0-17.5) gm/dL Hct (39.0-53.0) % Lymphocytes # (1.0-4.8) k/uL PT (9.0-12.0) sec INR (<1.2) BUN (9-20) mg/dL Creatinine (0.66-1.25) mg/dL Glucose (74-99) mg/dL POC Glucose (mg/dL) 171 H 188 H (75-99) mg/dL Iron (65-175) ug/dL TIBC (228-460) ug/dL Ferritin (22.0-322.0) ng/mL Crossmatch See Detail 04/23/19 04/23/19 04/23/19 Range/Units 07:16 07:16 07:16 RBC 2.68 L (4.30-5.90) m/uL Hgb 7.7 L (13.0-17.5) gm/dL Hct 24.2 L (39.0-53.0) % Lymphocytes # 0.9 L (1.0-4.8) k/uL PT 12.4 H (9.0-12.0) sec INR 1.2 H (<1.2) BUN 30 H (9-20) mg/dL Creatinine 2.65 H (0.66-1.25) mg/dL Glucose 168 H (74-99) mg/dL POC Glucose (mg/dL) (75-99) mg/dL Iron (65-175) ug/dL TIBC (228-460) ug/dL Ferritin (22.0-322.0) ng/mL Crossmatch 04/23/19 Range/Units 12:00 RBC (4.30-5.90) m/uL Hgb (13.0-17.5) gm/dL Hct (39.0-53.0) % Lymphocytes # (1.0-4.8) k/uL PT (9.0-12.0) sec INR (<1.2) BUN (9-20) mg/dL Creatinine (0.66-1.25) mg/dL Glucose (74-99) mg/dL POC Glucose (mg/dL) 227 H (75-99) mg/dL Iron (65-175) ug/dL TIBC (228-460) ug/dL Ferritin (22.0-322.0) ng/mL Crossmatch Microbiology - Last 24 Hours (Table) 04/21/19 22:02 Blood Culture - Preliminary Blood No Growth after 24 hours Assessment and Plan Assessment: * Localization-related epilepsy. Patient recently had history of subarachnoid hemorrhage related to coagulopathy, which may be contributing. No signs of meningitis/encephalitis. Patient's EEG was abnormal with left temporal sharp waves. * History of bacterial endocarditis of mechanical aortic valve, status post replacement with cadaver valve * History of subarachnoid hemorrhage due to coagulopathy. * Diabetes, not well controlled * Chronic renal insufficiency Plan: * Patient's EEG revealed frequent left temporal slowing, with sharp and slow wave activity, suggestive of focal cortical neuronal dysfunction with underlying cortical irritability and tendency for seizures. This predisposes patient for future focal onset seizures. * Continue Keppra 750 mg orally twice a day, due to his moderate renal insufficiency. * Patient was informed of [place] state law of no driving, unless seizure free for 6 months, climbing ladders, operate dangerous machinery, or unsupervised swimming. * Patient to follow up with a neurologist locally to manage his seizure disorder. Patient will need checking Keppra level checked as outpatient bec ause of his history of renal insufficiency. * Neurologically otherwise clear.
[2019-04-23] MEDS ORDERED: LIDOCAINE 1% INJ 10MG/ML (20 ML MDV) SQ ONE (16:09)
[2019-04-23] MEDS ORDERED: WARFARIN 10 MG TAB PO ONE (18:00)
--- NOTE | 2019-04-23 23:50 | DS ---
DISCHARGE SUMMARY DATE OF SERVICE: 04/23/2019 FINAL DIAGNOSES: 1. Acute tonic-clonic seizures, new onset, of undetermined etiology. 2. History of recent aortic valve endocarditis and replacement with aortic prosthetic valve with bovine graft at [facility]. 3. History of recent subarachnoid hemorrhage. 4. History of recent renal failure, on hemodialysis. 5. Chronic kidney disease, stage III possibly. 6. Rule out normal-pressure hydrocephalus. 7. Hyponatremia. 8. Hyperkalemia. 9. Anemia, multifactorial, possibly nutritional. 10.Diabetes mellitus, type 2. 11.History of coronary artery disease, coronary artery bypass grafting. 12.History of recent eye injection. 13.History of gastroesophageal reflux disease. 14.Hypertension. 15.Hyperlipidemia. 16.History of aortic regurgitation previously. 17.History of epistaxis and Coumadin usage. 18.FULL CODE. DISCHARGE DISPOSITION: The patient will be discharged in stable condition with guarded prognosis. HISTORY OF PRESENT ILLNESS: This 53-year-old gentleman with a past medical history of multiple medical problems was admitted with generalized tonic-clonic seizures. Patient had recent multiple complex medical surgical issues, being treated in [facility] also. Multiple consultants are following the patient at this time. Neurology saw the patient. The patient improved significantly. The EEG was showing some frequent left temporal slowing. Keppra was given. Nephrology saw the patient. Creatinine stable at 2.65. The recommended outpatient followup. Hemoglobin was 7.7. The patient follows with Dr. Wu. DISCHARGE ADVICE AND MEDICATIONS: The patient will be discharged in stable condition with guarded prognosis with the following advice and medications: 1. Diet is cardiac. 2. Activity limited until followup. 3. Follow up with Dr. Wu in 1 to 2 days. 4. Follow up with Dr. Stephen as advised. 5. Follow up with Nephrology as recommended. 6. Bumex 4 mg p.o. daily. 7. Coreg 25 mg p.o. b.i.d. 8. Cordarone 200 mg p.o. daily. 9. Coumadin 7.5 mg p.o. daily. 10.Ecotrin 81 mg p.o. daily. 11.Flomax 0.4 daily. 12.Humalog protocol. 13.Hydralazine 50 mg p.o. daily and 25 mg p.o. b.i.d. 14.Iron 320 mg p.o. b.i.d. 15.Isradipine 10 mg p.o. b.i.d. 16.K-Dur 20 mEq p.o. daily. 17.Lipitor 20 mg at bedtime. 18.Magnesium oxide 400 mg p.o. b.i.d. 19.Folic acid. 20.Vitamin B complex 1 p.o. daily. 21.Tylenol p.r.n. 22.Keppra 750 mg p.o. b.i.d. 23.Norvasc 10 mg p.o. daily. 24.Thiamine 100 mg p.o. daily. 25.Follow up with [facility] as recommended. Once again, the patient will be discharged in stable condition with guarded prognosis. MMODL / IJN: [id number] /
== END 2019-04-23 15:35 | disposition home or self-care (01) | DRG 100 ==
LOC: EC 15:13 → 3SCARD 17:26 → 4SSUR 04-22 22:50 → OBSVTOIN 04-23 08:56
PROVIDERS: ADMIT Hospitalist; ATTEND Hospitalist
DX: R56.9 Unspecified convulsions (principal); I50.23 Acute on chronic systolic (congestive) heart failure; N17.0 Acute kidney failure with tubular necrosis; E87.1 Hypo-osmolality and hyponatremia; I13.0 Hypertensive heart and chronic kidney disease with heart failure and stage 1 through stage 4 chronic kidney disease, or unspecified chronic kidney disease; I44.2 Atrioventricular block, complete; G91.2 (Idiopathic) normal pressure hydrocephalus; D63.8 Anemia in other chronic diseases classified elsewhere; N18.3 Chronic kidney disease, stage 3 (moderate); E11.22 Type 2 diabetes mellitus with diabetic chronic kidney disease; D50.9 Iron deficiency anemia, unspecified; E78.5 Hyperlipidemia, unspecified; E87.5 Hyperkalemia; I07.1 Rheumatic tricuspid insufficiency; I25.10 Atherosclerotic heart disease of native coronary artery without angina pectoris; I48.0 Paroxysmal atrial fibrillation; K21.9 Gastro-esophageal reflux disease without esophagitis; R79.1 Abnormal coagulation profile; Z79.01 Long term (current) use of anticoagulants; Z79.4 Long term (current) use of insulin; Z79.82 Long term (current) use of aspirin; Z79.899 Other long term (current) drug therapy; Z95.3 Presence of xenogenic heart valve; Z95.1 Presence of aortocoronary bypass graft; Z95.0 Presence of cardiac pacemaker; Z80.8 Family history of malignant neoplasm of other organs or systems
CPT/HCPCS: 36415; 70450; 71046; 80048; 80053; 80306; 81003; 82550; 82728; 83540; 83550; 83735; 83880; 84484; 85025; 85027; 85610; 85730; 86850; 86860; 86870; 86880; 86900; 86901; 86902; 86906; 86920; 87040; 93005; 93306; 95819; 96374; 99285

== ENCOUNTER → 2019-08-20 | Outpatient (CLI) | payer OTHER ==
--- NOTE | 2019-08-20 17:02 | US ---
EXAMINATION TYPE: US kidneys/renal and bladder DATE OF EXAM: 08/20/2019 COMPARISON: NONE CLINICAL HISTORY: Acute kidney injury N17.9. EXAM MEASUREMENTS: Right Kidney: 9.8 x 4.9 x 4.3 cm Left Kidney: 10.5 x 6.0 x 5.0 cm Extensive midline bowel gas. Right Kidney: Scanned posterior due to extensive bowel gas. Superior pole somewhat obscured by bowel gas. No hydro or masses seen. Left Kidney: cyst measuring 2.7 x 2.6 x 3.4cm, wedge shaped anechoic area mid Bladder: wnl Bilateral Jets seen: Yes Urinary bladder is sonolucent. IMPRESSION: 1. Left renal cyst inferior pole. 2. Some limitation due to bowel gas
== END | disposition home or self-care (01) ==
LOC: RADUSWWP 10:47
PROVIDERS: ATTEND Internal Medicine Nephrology
DX: N28.1 Cyst of kidney, acquired (principal); R14.3 Flatulence; N17.9 Acute kidney failure, unspecified
CPT/HCPCS: 76770